=== PATIENT | male | born 1955 | race Caucasian/White ===

== ENCOUNTER 2020-11-18 09:58 | Outpatient (REF) | payer MEDICARE, SELFPAY ==
[2020-11-18 11:26] LABS: Basophils Absolute Auto 0.1 X10*3/uL (0.0-0.2); Basophils Percent Auto 0.6 % (0-2); Eosinophils Absolute Auto 0.3 X10*3/uL (0.0-0.4); Eosinophils Percent Auto 2.8 % (0-4); Hematocrit 43.2 % (42-52); Hemoglobin 13.7 g/dl (14.0-18.0); Imm Gran Abs Auto 0.04 X10*3/uL (0.00-0.03); Imm Gran Pct Auto 0.4 % (0.0-0.4); Lymphocytes Absolute Auto 2.7 X10*3/uL (1.2-4.9); Lymphocytes Percent Auto 27.2 % (20-40); MANUAL DIFF FLAG SCAN; Mean Corpuscular HGB Conc 31.7 g/dl (31.0-36.0); Mean Corpuscular Hemoglobin 27.8 pg (27.0-33.0); Mean Corpuscular Volume 87.6 fL (80-98); Monocytes Absolute Auto 0.6 X10*3/uL (0.1-1.2); Monocytes Percent Auto 6.3 % (2-11); Neutrophils Absolute Auto 6.1 X10*3/uL (2.0-8.3); Neutrophils Percent Auto 62.7 % (45-73); PLT CLUMP 1; Red Blood Count 4.93 X10*6/uL (4.60-5.80); Red Cell Distribution Width 14.5 % (11.0-16.0); SCAN SMEAR FLAG 1
[2020-11-18 11:56] LABS: Alanine Aminotransferase 30 U/L (0-40); Albumin Level 4.1 g/dL (3.5-5.0); Alkaline Phosphatase 87 U/L (39-117); Anion Gap 15 (12-20); Aspartate Amino Transferase 23 U/L (5-37); Bilirubin Total 0.5 mg/dL (0.0-1.0); Blood Urea Nitrogen 25 mg/dL (9-16); Calcium 9.4 mg/dL (8.4-10.2); Carbon Dioxide 24 mmol/L (22-29); Chloride 106 mmol/L (96-108); Cholesterol 156 mg/dL; Estimated Glomerular Filt Rate > 60; Glucose Random 104 mg/dL (60-115); HDL Cholesterol 36 mg/dL; LDL Cholesterol Calculated 101 mg/dl; Potassium 4.8 mmol/L (3.3-5.1); Sodium 140 mmol/L (135-145); Total Protein 7.3 g/dL (6.5-8.0); Triglycerides 96 mg/dL
[2020-11-18 12:02] LABS: Prostate Specific Antigen 1.17 ng/mL (<0.05-4.0); Thyroid Stimulating Hormone 1.79 uIU/mL (0.32-4.0)
[2020-11-18 12:15] LABS: Folate 18.4 ng/mL (> or = 4.0); Vitamin B12 367 pg/mL (200-900)
[2020-11-18 12:17] LABS: Platelet Count 207 X10*3/uL (160-400); White Blood Count 9.7 X10*3/uL (4.8-10.8)
[2020-11-18 12:18] LABS: SLIDE REVIEW VERIFIED
== END 2020-11-18 09:59 | disposition home or self-care (01) ==
LOC: HO.HMGCLDS 09:58
PROVIDERS: PCP Internal Medicine; Visit Provider Internal Medicine
DX: I10 Essential (primary) hypertension (principal); K21.9 Gastro-esophageal reflux disease without esophagitis; Z12.5 Encounter for screening for malignant neoplasm of prostate
CPT/HCPCS: 36415; 80053; 80061; 82607; 82746; 84153; 84443; 85025

== ENCOUNTER → 2021-01-29 14:17 | Outpatient (BNVA) | payer MEDICARE, SELFPAY | PROVIDERS: PCP Internal Medicine; Referring Provider Internal Medicine; Visit Provider Nurse Practitioner | DX: E66.01 Morbid (severe) obesity due to excess calories (principal); Z68.43 Body mass index [BMI] 50.0-59.9, adult; G47.33 Obstructive sleep apnea (adult) (pediatric); Z79.899 Other long term (current) drug therapy | CPT/HCPCS: 99202 ==

== ENCOUNTER 2021-03-02 09:55 | Day surgery (SDC) | payer MEDICARE, SELFPAY ==
--- NOTE | 2021-02-26 12:53 | HO.ANESPROP2 ---
HPI - Anesthesia Eval Consult details Narrative: 65yo M for Colonoscopy PMFSH Active Problems Active Problems: All Active Problems (Updated 02/24/21 @ 12:07 by Conchita Coronel) COVID-19 virus infection (Acute) Seborrheic dermatitis (Acute) Knee osteoarthritis (Acute) Morbid obesity with BMI of 50.0-59.9, adult (Acute) Obstructive sleep apnea (Acute) GERD (gastroesophageal reflux disease) (Acute) Hypertension (Acute) Past Medical History Medical History Allergic rhinitis Asthma Gastric ulcer, unspecified as acute or chronic, without hemorrhage or perforation GERD (gastroesophageal reflux disease) Hypertension Legionnaires' disease Lower extremity edema Lymphedema Obstructive sleep apnea Family History Family History Father No problems noted. Mother No problems noted. Surgical History Surgical History History of ankle surgery History of lipoma Hx of colonoscopy Social History Social History Alcohol intake: never Patient Tobacco Use Status: Never used Tobacco Meds Allergies Allergy/AdvReac Type Severity Reaction Status Date / Time No Known Allergies [NKDA] Allergy Mild NONE Verified 02/24/21 09:22 Home Medications Medication Instructions Recorded Confirmed Last Taken Type ascorbate calcium (vitamin C) 500 500 mg PO DAILY 06/23/20 02/24/21 Unknown History mg tablet multivitamin,[id number] 1 tab PO DAILY 06/23/20 02/24/21 Unknown History Exam Exam Date and Time: February 26, 2021 1253 Pertinent Lab Results Pertinent Lab Results: Laboratory Tests 11/18/20 11/18/20 10:05 10:05 WBC 9.7 Hgb 13.7 L Hct 43.2 Plt Count 207 Sodium 140 Potassium 4.8 Chloride 106 Carbon Dioxide 24 BUN 25 H Creatinine 0.90 Assessment and Plan Assessment Anesthesia Assessment: Chart Reviewed
[2021-03-02 06:02] VITALS: BMI 51.0
[2021-03-02 10:17] VITALS: BP 151/67; PULSE 75; RESP 18; TEMP 36.9; O2SAT 96
--- NOTE | 2021-03-02 10:26 | P.CONAN_ITS ---
[facility] Active Problems Active Problems: All Active Problems (Updated 02/24/21 @ 12:07 by Conchita villanueva) COVID-19 virus infection (Acute) Seborrheic dermatitis (Acute) Knee osteoarthritis (Acute) Morbid obesity with BMI of 50.0-59.9, adult (Acute) Obstructive sleep apnea (Acute) GERD (gastroesophageal reflux disease) (Acute) Hypertension (Acute) Past Medical History Medical History Allergic rhinitis Asthma Gastric ulcer, unspecified as acute or chronic, without hemorrhage or perforation GERD (gastroesophageal reflux disease) Hypertension Legionnaires' disease Lower extremity edema Lymphedema Obstructive sleep apnea Family History Family History Father No problems noted. Mother No problems noted. Surgical History Surgical History History of ankle surgery History of lipoma Hx of colonoscopy Social History Social History Alcohol intake: never Patient Tobacco Use Status: Never used Tobacco Are you DNR?: No Advance Directives: No Advance Directives Information Provided: No Advance Directives on File: No Recently lost weight without trying: No Meds Allergies Allergy/AdvReac Type Severity Reaction Status Date / Time No Known Allergies [NKDA] Allergy Mild NONE Verified 02/24/21 09:22 Active Medications: Current Medications Generic Name Dose Route Start Last Admin Trade Name Freq PRN Reason Stop Dose Admin Albuterol Sulfate 2.5 mg 03/02/21 09:56 Albuterol Sulfate (0.083%) 2.5 Mg/3 Ml Vial.Neb INHALE ONCE PRN Shortness of Breath/Wheezing Lactated Ringer's 1,000 mls @ 100 mls/hr 03/02/21 10:00 Lr IVCONT .Q10H [facility] Home Medications Medication Instructions Recorded Confirmed Last Taken Type ascorbate calcium (vitamin C) 500 500 mg PO DAILY 06/23/20 02/24/21 Unknown History mg tablet multivitamin,[id number]-[id number] 1 tab PO DAILY 06/23/20 02/24/21 Unknown History Exam Exam Date and Time: March 02, 2021 1026 Height,Weight and Vital Signs: Height 6 ft 1 in Weight 175.54 kg Airway Mallampati Class: IV TM Dist: >3cm Neck ROM: Full Heart: RRR Lungs: CTA
--- NOTE | 2021-03-02 10:35 | MHC.SHP ---
Pre-Procedural Eval Section B Chief Complaint: Screening Relevant Family History (Specify if Yes): No Relevant Social History: None Present Medications: see Short Stay Collaborative assessment Medical History: Significant History (Allergic rhinitis Asthma Gastric ulcer, unspecified as acute or chronic, without hemorrhage or perforation GERD (gastroesophageal reflux disease) Hypertension Legionnaires' disease Lower extremity edema Lymphedema Obstructive sleep apnea) History of Previous Operations: Relevant previous surgery/procedure and date(s) (History of ankle surgery History of lipoma Hx of colonoscopy) Allergies: Allergies Allergy/AdvReac Type Severity Reaction Status Date / Time No Known Allergies [NKDA] Allergy Mild NONE Verified 02/24/21 09:22 Review of Systems Sugical H&P ROS: Negative: Constitution, Cardiovascular, Respiratory, Neurological, Psychiatric, Hem-Onc, Allergic/Immunologic, Gastrointestinal, Genitourinary, Musculoskeletal, Integumentary, Endocrine and Eyes/Ears/Nose/Throat Exam Surgical H&P Exam: Normal: HEENT, Normal: Heart, Normal: Lungs, Normal: Extremities, Normal: Abdomen, Normal: Skin and Normal: Neurological Plan Diagnosis/Plan: Unchanged I have reviewed the history and physical and performed a pertinent physical examination on my patient. No changes have occurred unless specified.
[2021-03-02] MEDS: Lactated Ringers 1,000 ML 100 ML IVCONT (10:41)
--- NOTE | 2021-03-02 11:23 | P.OP_ITS ---
Operative Note Operative Note Date of Service: 03/02/21 Narrative: Operative Information Procedure Description: Colonoscopy COLONOSCOPY Instrument: Olympus variable stiffness adult scope 190L Colonoscopy Monitoring: Vital signs and clinical assessment, continuous EKG monitoring, Pulse oximetry, Carbon Dioxide monitoring and blood pressure monitoring were done throughout the procedure. Colon withdrawal time was 34 minutes. Procedure: The patient was placed in the left lateral decubitis position and pre-procedure medications were administered. After a digital rectal examination of the ano-rectum, the video colonoscope was inserted into the rectum and advanced through the colon to the cecum/TI. The colonoscope was slowly withdrawn in a retrograde panoramic fashion and the colon mucosa was carefully examined including a retroflexed view of the rectum. Findings and interventions are described below. Procedure Difficulty: moderate-pressure applied to reach cecum Findings: Terminal Ileum-not intubated due to looping and poor prep Cecum: 8-9 mm sessile polyp removed with forceps Ascending Colon: normal Transverse Colon - distal transverse colon close to splenic flexure 18-20 mm laterally spreading granular sessile polyp noted. This was liberally injected with ORISE and then resected using cold and hot snare polypectomy. APC applied to the edges and the defect partially closed with 4 clips. Pieces retrieved using a net. Descending Colon:normal Sigmoid Colon: severe diverticulosis with wide mouthed tics noted Rectum: Retroflexion with moderate sized internal hemorrhoids, grade II Anorectum - normal Colon preparation: [place] Bowel Preparation Scale Right colon; 1 Transverse colon: 2 Left colon; 1 (0 = Unprepared colon segment with mucosa not seen due to solid stool that cannot be cleared. 1 = Portion of mucosa of the colon segment seen, but other areas of the colon segment not well seen due to staining, residual stool and/or opaque liquid. 2 = Minor amount of residual staining, small fragments of stool and/or opaque liquid, but mucosa of colon segment seen well. 3 = Entire mucosa of colon segment seen well with no residual staining, small fragments of stool or opaque liquid) Impression and Post Procedure Diagnosis: polyps internal hemorrhoids diverticular disease Plan: High fiber diet leaflet Avoid straining at stool, epsom salts and sitz bath, anusol supps or cream as needed Repeat Colonoscopy in 6-12 months with 2 d prep if possible, also use distal attachment next time. Above findings were reviewed with the patient and relevant handouts were provided if indicated.
--- NOTE | 2021-03-02 11:23 | PM.OP ---
Brief Operative Note Date of Service: 03/02/21 Pre-op diagnosis: colon screening Post-op diagnosis: same Procedure: see op note Surgeon: Walter Kruse MD Anesthesia: MAC Was an Profile Grinder used for this Procedure?: No Estimated blood loss (mL): 0 Condition: stable Disposition: PACU
[2021-03-02 12:36] VITALS: BP 114/61; PULSE 70; RESP 16; TEMP 36.7; O2SAT 97
[2021-03-02 12:51] VITALS: BP 136/66; PULSE 66; RESP 16; TEMP 36.7; O2SAT 98
== END 2021-03-02 13:34 | disposition home or self-care (01) ==
PROVIDERS: PCP Internal Medicine; Visit Provider Internal Medicine Gastroenterology
PROC: 0DJD8ZZ Inspection of Lower Intestinal Tract, Via Natural or Artificial Opening Endoscopic (ICD-10-PCS; CPT 45378; principal; 2021-03-02 11:10)
DX: Z12.11 Encounter for screening for malignant neoplasm of colon (principal); D12.0 Benign neoplasm of cecum; D12.3 Benign neoplasm of transverse colon; K57.30 Diverticulosis of large intestine without perforation or abscess without bleeding; K64.1 Second degree hemorrhoids; K21.9 Gastro-esophageal reflux disease without esophagitis; I10 Essential (primary) hypertension; G47.33 Obstructive sleep apnea (adult) (pediatric); J45.909 Unspecified asthma, uncomplicated; I89.0 Lymphedema, not elsewhere classified; Z79.899 Other long term (current) drug therapy; Z99.89 Dependence on other enabling machines and devices; Z86.16 Personal history of COVID-19
CPT/HCPCS: 45385; 45380; 45381; 88305

== ENCOUNTER → 2021-03-30 11:04 | Outpatient (BNVA) | payer MEDICARE, SELFPAY | PROVIDERS: PCP Internal Medicine; Referring Provider Internal Medicine; Visit Provider Nurse Practitioner | DX: D12.6 Benign neoplasm of colon, unspecified (principal); K21.9 Gastro-esophageal reflux disease without esophagitis | CPT/HCPCS: 99212 ==

== ENCOUNTER 2021-06-03 08:25 | Outpatient (REF) | payer MEDICARE, SELFPAY ==
[2021-06-03 09:27] LABS: Alanine Aminotransferase 23 U/L (0-40); Albumin Level 3.9 g/dL (3.5-5.0); Alkaline Phosphatase 79 U/L (39-117); Anion Gap 14 (12-20); Aspartate Amino Transferase 18 U/L (5-37); Bilirubin Total 0.7 mg/dL (0.0-1.0); Blood Urea Nitrogen 27 mg/dL (9-16); Calcium 9.5 mg/dL (8.4-10.2); Carbon Dioxide 24 mmol/L (22-29); Chloride 108 mmol/L (96-108); Estimated Glomerular Filt Rate > 60; Glucose Random 111 mg/dL (60-115); Potassium 4.6 mmol/L (3.3-5.1); Sodium 141 mmol/L (135-145); Total Protein 6.7 g/dL (6.5-8.0)
[2021-06-03 09:50] LABS: Free T4 (Free Thyroxine) 1.14 ng/dL (0.71-1.85)
== END 2021-06-03 08:26 | disposition home or self-care (01) ==
LOC: HO.LAB 08:25
PROVIDERS: PCP Internal Medicine; Visit Provider Internal Medicine
DX: Z12.5 Encounter for screening for malignant neoplasm of prostate (principal); I10 Essential (primary) hypertension
CPT/HCPCS: 36415; 80053; 84153; 84439; 84443

== ENCOUNTER 2021-07-01 07:48 | Outpatient (REF) | payer MEDICARE, SELFPAY ==
--- NOTE | ~2021-07-01 | XR_ITS ---
EXAMINATION: X-RAY BILATERAL KNEES CLINICAL INFORMATION: Primary osteoarthritis COMPARISON: X-ray 11/19/2019 TECHNIQUE: Left knee 3 views. Right knee 2 views. FINDINGS: Left knee: Severe medial and patellofemoral compartment arthritis. Moderate to severe lateral compartment arthritis. Insertional enthesopathy in the patella. Probable small loose bodies. No significant joint effusion. No evidence of acute fracture or dislocation. Right knee: Severe medial and patellofemoral compartment arthritis.. Moderate lateral compartment arthritis. No fracture or dislocation. Triangular ossification in the suprapatellar region, unchanged from previous. No significant effusion. XR/XR knee LT 2V IMPRESSION: Advanced osteoarthritis bilateral knees, described above.
--- NOTE | ~2021-07-01 | XR_ITS ---
EXAMINATION: X-RAY BILATERAL KNEES CLINICAL INFORMATION: Primary osteoarthritis COMPARISON: X-ray 11/19/2019 TECHNIQUE: Left knee 3 views. Right knee 2 views. FINDINGS: Left knee: Severe medial and patellofemoral compartment arthritis. Moderate to severe lateral compartment arthritis. Insertional enthesopathy in the patella. Probable small loose bodies. No significant joint effusion. No evidence of acute fracture or dislocation. Right knee: Severe medial and patellofemoral compartment arthritis.. Moderate lateral compartment arthritis. No fracture or dislocation. Triangular ossification in the suprapatellar region, unchanged from previous. No significant effusion. XR/XR knee RT 2V IMPRESSION: Advanced osteoarthritis bilateral knees, described above.
== END 2021-07-01 07:49 | disposition home or self-care (01) ==
LOC: HO.XRAY 07:48
PROVIDERS: PCP Internal Medicine; Visit Provider Internal Medicine
DX: M17.0 Bilateral primary osteoarthritis of knee (principal)
CPT/HCPCS: 73560

== ENCOUNTER 2021-07-06 08:36 | Outpatient (REF) | payer MEDICARE, SELFPAY ==
--- NOTE | ~2021-07-06 | XR_ITS ---
EXAMINATION: XR KNEE AP STANDING CLINICAL INFORMATION: Knee pain. COMPARISON: 07/01/2021 and studies dating back to 12/29/2007. TECHNIQUE: AP bilateral standing view of the knees was obtained. FINDINGS: AP standing view of the left knee demonstrates severe narrowing of the medial joint space compartment with loss of joint space and marginal sclerosis and spurring. Calcified density is seen overlying superior and lateral to the patella. Numerous other small calcifications are present which may represent loose bodies. No significant narrowing of the lateral joint space compartment is seen. Single standing view of the right knee demonstrates severe narrowing of the medial joint space compartment with some marginal spurring. A few calcific/bony densities are seen about the medial aspect of the medial joint space compartment which may represent loose bodies. Small bony density seen overlying the tibial spines which may also represent loose body. Patellar spurring is present. XR/XR knee standing BI IMPRESSION: No change in appearance on AP standing views of the knees compared to most recent study of 07/01/2021. Probable bilateral loose bodies. Loss of the left medial joint space compartment with marginal spurring and sclerosis. Severe narrowing of the medial joint space compartment of the right knee.
== END 2021-07-06 08:37 | disposition home or self-care (01) ==
LOC: HO.HOSX 08:36
PROVIDERS: Visit Provider Orthopaedic Surgery
DX: M17.0 Bilateral primary osteoarthritis of knee (principal); E66.01 Morbid (severe) obesity due to excess calories; Z68.43 Body mass index [BMI] 50.0-59.9, adult; Z71.3 Dietary counseling and surveillance; R73.01 Impaired fasting glucose
CPT/HCPCS: 73565; 99202

== ENCOUNTER → 2021-07-13 08:21 | Outpatient (BNVA) | payer MEDICARE, SELFPAY | PROVIDERS: PCP Internal Medicine; Visit Provider Orthopaedic Surgery | DX: M17.0 Bilateral primary osteoarthritis of knee (principal); E66.01 Morbid (severe) obesity due to excess calories; R73.01 Impaired fasting glucose; Z68.43 Body mass index [BMI] 50.0-59.9, adult | CPT/HCPCS: 20610; 99212; J7318 ==

== ENCOUNTER → 2021-09-14 09:09 | Outpatient (BNVA) | payer MEDICARE, SELFPAY | PROVIDERS: PCP Internal Medicine; Visit Provider Orthopaedic Surgery | DX: R73.01 Impaired fasting glucose (principal); M17.0 Bilateral primary osteoarthritis of knee; E66.01 Morbid (severe) obesity due to excess calories; Z68.43 Body mass index [BMI] 50.0-59.9, adult | CPT/HCPCS: 99212 ==

== ENCOUNTER → 2021-10-20 08:25 | Outpatient (BNVA) | payer MEDICARE, SELFPAY | PROVIDERS: PCP Internal Medicine; Referring Provider Internal Medicine; Visit Provider Nurse Practitioner Family | DX: G47.33 Obstructive sleep apnea (adult) (pediatric) (principal); E66.01 Morbid (severe) obesity due to excess calories; Z68.43 Body mass index [BMI] 50.0-59.9, adult; K21.9 Gastro-esophageal reflux disease without esophagitis | CPT/HCPCS: 99202 ==

== ENCOUNTER → 2021-11-16 09:48 | Outpatient (REF) | payer MEDICARE, SELFPAY | LOC: HO.SL 09:48 | PROVIDERS: PCP Internal Medicine; Visit Provider Nurse Practitioner Family | DX: Z13.89 Encounter for screening for other disorder (principal) ==

== ENCOUNTER → 2021-11-26 09:11 | Outpatient (REF) | payer MEDICARE, SELFPAY | LOC: HO.SL 09:11 | PROVIDERS: PCP Internal Medicine; Visit Provider Nurse Practitioner Family | DX: G47.33 Obstructive sleep apnea (adult) (pediatric) (principal); R06.83 Snoring; R40.0 Somnolence | CPT/HCPCS: 95806 ==

== ENCOUNTER → 2021-12-15 09:11 | Outpatient (BNVA) | payer MEDICARE, SELFPAY | PROVIDERS: PCP Internal Medicine; Visit Provider Nurse Practitioner Family | DX: G47.33 Obstructive sleep apnea (adult) (pediatric) (principal) | CPT/HCPCS: 99212 ==

== ENCOUNTER 2021-12-25 08:43 | Outpatient (REF) | payer MEDICARE, SELFPAY ==
[2021-12-25 09:20] LABS: MANUAL DIFF FLAG NO
[2021-12-25 09:45] LABS: Basophils Absolute Auto 0.1 X10*3/uL (0.0-0.2); Basophils Percent Auto 0.7 % (0-2); Eosinophils Absolute Auto 0.3 X10*3/uL (0.0-0.4); Eosinophils Percent Auto 3.1 % (0-4); Hematocrit 42.6 % (42.0-52.0); Hemoglobin 13.5 g/dl (14.0-18.0); Imm Gran Abs Auto 0.06 X10*3/uL (0.00-0.03); Imm Gran Pct Auto 0.7 % (0.0-0.4); Lymphocytes Absolute Auto 2.7 X10*3/uL (1.2-4.9); Lymphocytes Percent Auto 30.5 % (20-40); Mean Corpuscular HGB Conc 31.7 g/dl (31.0-36.0); Mean Corpuscular Hemoglobin 28.2 pg (27.0-33.0); Mean Corpuscular Volume 88.9 fL (80.0-98.0); Mean Platelet Volume 10.8 fL (9.4-12.4); Monocytes Absolute Auto 0.5 X10*3/uL (0.1-1.2); Monocytes Percent Auto 5.8 % (2-11); Neutrophils Absolute Auto 5.2 x10*3/uL (2.0-8.3); Neutrophils Percent Auto 59.2 % (45-73); Platelet Count 277 X10*3/uL (160-400); Red Blood Count 4.79 X10*6/uL (4.60-5.80); Red Cell Distribution Width 13.9 % (11.0-16.0); White Blood Count 8.8 X10*3/uL (4.8-10.8)
[2021-12-25 10:04] LABS: Anion Gap 12 (12-20); Bilirubin Total 1.2 mg/dL (0.0-1.0); Blood Urea Nitrogen 26 mg/dL (9-16); Calcium 9.2 mg/dL (8.4-10.2); Carbon Dioxide 26 mmol/L (22-29); Chloride 106 mmol/L (96-108); Estimated Glomerular Filt Rate > 60; Glucose Random 106 mg/dL (60-115); Potassium 4.6 mmol/L (3.3-5.1); Sodium 139 mmol/L (135-145)
[2021-12-25 10:05] LABS: Alanine Aminotransferase 25 U/L (0-40); Albumin Level 3.7 g/dL (3.5-5.0); Alkaline Phosphatase 81 U/L (39-117); Aspartate Amino Transferase 20 U/L (5-37); Cholesterol 154 mg/dL; HDL Cholesterol 31 mg/dL; LDL Cholesterol Calculated 107 mg/dl; Total Protein 6.7 g/dL (6.5-8.0); Triglycerides 80 mg/dL
[2021-12-25 10:07] LABS: Estimated Average Glucose 126 mg/dL
[2021-12-25 10:24] LABS: Erythrocyte Sedimentation Rate 23 MM/HR (0-15)
[2021-12-25 10:28] LABS: Free T4 (Free Thyroxine) 0.98 ng/dL (0.71-1.85); Prostate Specific Antigen Scr 0.94 ng/mL (<0.05-4.0); Thyroid Stimulating Hormone 1.47 uIU/mL (0.32-4.0)
[2021-12-25 10:56] LABS: Folate 18.9 ng/mL (> or = 4.0); Vitamin B12 332 pg/mL (200-900)
== END 2021-12-25 08:44 | disposition home or self-care (01) ==
LOC: HO.LAB 08:43
PROVIDERS: PCP Internal Medicine; Visit Provider Internal Medicine
DX: Z12.5 Encounter for screening for malignant neoplasm of prostate (principal); I10 Essential (primary) hypertension; E78.00 Pure hypercholesterolemia, unspecified
CPT/HCPCS: 36415; 80053; 80061; 82607; 82746; 83036; 84153; 84439; 84443; 85025; 85652

== ENCOUNTER 2022-07-23 08:24 | Outpatient (REF) | payer MEDICARE, SELFPAY ==
--- NOTE | ~2022-07-23 | FL_ITS ---
EXAMINATION: FL BARIUM SWALLOW CLINICAL INFORMATION: Dysphagia COMPARISON: None TECHNIQUE: Barium swallow examination is performed using fluoroscopic evaluation in addition to multiple fluoroscopic spot views. The patient is imaged both upright and prone and using both thick and thin sulfate along with effervescent granules. Barium tablet was also administered Fluoroscopy time: 0.9 minutes DAP: 10.5 Gycm2 Images: 46 FINDINGS: The swallowing mechanism is normal. No aspiration or penetration. Esophageal motility is normal. Small sliding-type hiatal hernia. Mild gastroesophageal reflux.. No mass or stricture is seen. Barium tablet passed freely into the esophagus. FL/FL barium swallow IMPRESSION: Small sliding-type hiatal hernia and mild gastroesophageal reflux.
== END 2022-07-23 08:25 | disposition home or self-care (01) ==
LOC: HO.XRAY 08:24
PROVIDERS: PCP Internal Medicine; Visit Provider Internal Medicine
DX: R13.10 Dysphagia, unspecified (principal)
CPT/HCPCS: 74220

== ENCOUNTER → 2022-08-27 08:32 | Outpatient (BNVA) | payer MEDICARE, SELFPAY | PROVIDERS: PCP Internal Medicine; Visit Provider Nurse Practitioner Family | DX: Z12.11 Encounter for screening for malignant neoplasm of colon (principal); D12.6 Benign neoplasm of colon, unspecified; G47.33 Obstructive sleep apnea (adult) (pediatric) | CPT/HCPCS: 99212 ==

== ENCOUNTER 2022-12-30 07:07 | Outpatient (REF) | payer MEDICARE, SELFPAY ==
[2022-12-30 07:17] LABS: MANUAL DIFF FLAG NO
[2022-12-30 07:40] LABS: Basophils Absolute Auto 0.1 X10*3/uL (0.0-0.2); Basophils Percent Auto 0.6 % (0-2); Eosinophils Absolute Auto 0.3 X10*3/uL (0.0-0.4); Eosinophils Percent Auto 2.5 % (0-4); Hematocrit 43.8 % (42.0-52.0); Hemoglobin 13.9 g/dl (14.0-18.0); Imm Gran Abs Auto 0.03 X10*3/uL (0.00-0.03); Imm Gran Pct Auto 0.3 % (0.0-0.4); Lymphocytes Absolute Auto 3.1 X10*3/uL (1.2-4.9); Lymphocytes Percent Auto 30.4 % (20-40); Mean Corpuscular HGB Conc 31.7 g/dl (31.0-36.0); Mean Corpuscular Hemoglobin 28.3 pg (27.0-33.0); Mean Platelet Volume 10.8 fL (9.4-12.4); Monocytes Absolute Auto 0.6 X10*3/uL (0.1-1.2); Neutrophils Absolute Auto 6.1 x10*3/uL (2.0-8.3); Neutrophils Percent Auto 60.2 % (45-73); Platelet Count 310 X10*3/uL (160-400); Red Blood Count 4.92 X10*6/uL (4.60-5.80); White Blood Count 10.2 X10*3/uL (4.8-10.8)
[2022-12-30 07:53] LABS: Estimated Average Glucose 126 mg/dL
[2022-12-30 08:20] LABS: Alanine Aminotransferase 23 U/L (0-40); Albumin Level 3.8 g/dL (3.5-5.0); Alkaline Phosphatase 83 U/L (39-117); Anion Gap 12 (12-20); Aspartate Amino Transferase 17 U/L (5-37); Bilirubin Total 0.9 mg/dL (0.0-1.0); Blood Urea Nitrogen 26 mg/dL (9-16); Calcium 8.8 mg/dL (8.4-10.2); Carbon Dioxide 26 mmol/L (22-29); Chloride 109 mmol/L (96-108); Cholesterol 154 mg/dL; Estimated Glomerular Filt Rate > 60; Glucose Random 112 mg/dL (60-115); HDL Cholesterol 33 mg/dL; LDL Cholesterol Calculated 107 mg/dl; Potassium 4.3 mmol/L (3.3-5.1); Sodium 143 mmol/L (135-145); Total Protein 6.5 g/dL (6.5-8.0); Triglycerides 73 mg/dL
[2022-12-30 08:39] LABS: Folate 14.3 ng/mL (> or = 4.0); Free T4 (Free Thyroxine) 0.96 ng/dL (0.71-1.85); Prostate Specific Antigen Scr 1.01 ng/mL (<0.05-4.0); Thyroid Stimulating Hormone 2.59 uIU/mL (0.32-4.0); Vitamin B12 495 pg/mL (200-900)
== END 2022-12-30 07:08 | disposition home or self-care (01) ==
LOC: HO.LAB 07:07
PROVIDERS: PCP Internal Medicine; Visit Provider Internal Medicine
DX: Z12.5 Encounter for screening for malignant neoplasm of prostate (principal); R73.01 Impaired fasting glucose; E78.00 Pure hypercholesterolemia, unspecified; K21.9 Gastro-esophageal reflux disease without esophagitis
CPT/HCPCS: 36415; 80053; 80061; 82607; 82746; 83036; 84153; 84439; 84443; 85025

== ENCOUNTER 2023-02-20 10:40 | Emergency (ER) | payer MEDICARE, SELFPAY ==
--- NOTE | ~2023-02-20 | US_ITS ---
EXAMINATION: US VENOUS ULTRASOUND WITH DOPPLER LOWER EXTREMITY, LEFT CLINICAL INFORMATION: Pain COMPARISON: None available. TECHNIQUE: Ultrasound of the deep veins is performed from the hip to the calf with compression sonography and color and pulse Doppler assessment. Spectral analysis with color-flow imaging is performed. FINDINGS: There is normal venous compression and respiratory variation and augmented flow. The visualized common femoral vein, superficial femoral vein, profunda femoral vein, and popliteal vein shows no evidence of deep venous thrombosis. Calf veins not well visualized. There is no significant popliteal fossa cyst. US/US venous duplex LE LT IMPRESSION: No DVT demonstrated in the left lower extremity. Calf veins not well visualized.
[2023-02-20 10:58] VITALS: BP 182/74; PULSE 81; RESP 18; TEMP 36.7; O2SAT 96; BMI 48.8
[2023-02-20 11:21] LABS: MANUAL DIFF FLAG NO
[2023-02-20 11:42] LABS: Basophils Absolute Auto 0.1 X10*3/uL (0.0-0.2); Basophils Percent Auto 0.8 % (0-2); Eosinophils Absolute Auto 0.4 X10*3/uL (0.0-0.4); Eosinophils Percent Auto 4.1 % (0-4); Hematocrit 41.7 % (42.0-52.0); Hemoglobin 13.1 g/dl (14.0-18.0); Imm Gran Abs Auto 0.05 X10*3/uL (0.00-0.03); Imm Gran Pct Auto 0.6 % (0.0-0.4); Lymphocytes Absolute Auto 2.7 X10*3/uL (1.2-4.9); Lymphocytes Percent Auto 30.3 % (20-40); Mean Corpuscular HGB Conc 31.4 g/dl (31.0-36.0); Mean Corpuscular Hemoglobin 28.2 pg (27.0-33.0); Mean Corpuscular Volume 89.7 fL (80.0-98.0); Mean Platelet Volume 10.7 fL (9.4-12.4); Monocytes Absolute Auto 0.5 X10*3/uL (0.1-1.2); Monocytes Percent Auto 5.8 % (2-11); Neutrophils Absolute Auto 5.2 x10*3/uL (2.0-8.3); Neutrophils Percent Auto 58.4 % (45-73); Platelet Count 254 X10*3/uL (160-400); Red Blood Count 4.65 X10*6/uL (4.60-5.80); Red Cell Distribution Width 14.1 % (11.0-16.0); White Blood Count 8.9 X10*3/uL (4.8-10.8)
[2023-02-20 11:44] LABS: Alanine Aminotransferase 18 U/L (0-40); Albumin Level 3.5 g/dL (3.5-5.0); Alkaline Phosphatase 73 U/L (39-117); Anion Gap 11 (12-20); Aspartate Amino Transferase 15 U/L (5-37); Bilirubin Total 0.5 mg/dL (0.0-1.0); Blood Urea Nitrogen 30 mg/dL (9-16); Calcium 8.6 mg/dL (8.4-10.2); Carbon Dioxide 24 mmol/L (22-29); Chloride 109 mmol/L (96-108); Estimated Glomerular Filt Rate > 60; Glucose Random 142 mg/dL (60-115); Potassium 4.4 mmol/L (3.3-5.1); Sodium 140 mmol/L (135-145); Total Protein 6.3 g/dL (6.5-8.0)
[2023-02-20 11:46] LABS: B Type Natriuretic Peptide 27 pg/mL (<100)
[2023-02-20 11:48] VITALS: BP 163/67; PULSE 71; RESP 18; TEMP 37.1; O2SAT 97
--- NOTE | 2023-02-20 12:24 | ED.EXTPRO ---
HPI - Extremity Problem General Chief complaint: Extremity Problem Stated complaint: l leg leaking fluid Time Seen by Provider: 02/20/23 11:46 Source: patient Mode of arrival: ambulatory Limitations: no limitations History of Present Illness HPI Narrative: Patient is 67 year old male with history of morbid obesity, peripheral vascular disease, impaired fasting glucose, lymphedema, IRASEMA, hypertension presenting with 3 weeks of poor wond healing to the anterior left lower extremity with clear drainage. He states that after hitting his lower leg with a car door the wound developed and has progressively worsened. He reports pain around the area and is unsure of his tetanus vaccine status. He denies any other symptoms at this time including fevers, chills, chest pain, palpitations, shortness of breath, abdominal pain, nausea, vomiting, headache and dizziness. Related Data Home Medications Medication Instructions Recorded Confirmed ascorbate calcium (vitamin C) 500 500 mg PO DAILY 06/23/20 02/18/23 mg tablet multivitamin,[id number] 1 tab PO DAILY 06/23/20 02/18/23 (Complete Multivitamin tablet) Previous Rx's Medication Instructions Recorded tramadol 50 mg tablet 50 mg PO DAILY #90 tabs 07/27/21 blood pressure monitor (Blood #1 ea 07/02/22 Pressure Kit) josé manuel.stocking,knee,reg,xlrg #12 ea 07/02/22 hydrochlorothiazide 25 mg tablet 25 mg PO QAM 90 days #90 tabs 07/02/22 lisinopril 40 mg tablet 40 mg PO DAILY #90 tabs 07/02/22 bisacodyl 5 mg tablet,delayed 10 mg PO BEDTIME #14 tabs 08/27/22 release (Dulcolax (bisacodyl)) polyethylene glycol 3350 17 238 g PO ONCE #238 grams 08/27/22 gram/dose oral powder (Miralax) fluticasone propionate 50 2 spray intranasal DAILY #16 grams 01/03/23 mcg/actuation nasal spray,suspension (Flonase Allergy Relief) meloxicam 15 mg tablet 15 mg PO DAILY #30 tabs 01/03/23 metoprolol succinate 25 mg 25 mg PO DAILY #30 tabs 01/03/23 tablet,extended release 24 hr pantoprazole 40 mg tablet,delayed 40 mg PO DAILY #90 tabs 01/17/23 release (Protonix) cephalexin 500 mg tablet 500 mg PO Q6H 10 days #40 tabs 02/20/23 doxycycline hyclate 100 mg capsule 100 mg PO BID 10 days #20 caps 02/20/23 Allergies Allergy/AdvReac Type Severity Reaction Status Date / Time No Known Allergies [NKDA] Allergy Mild NONE Verified 01/03/23 09:25 Review of Systems Review of Systems: Constitutional : No Weight loss, No Fever, No Chills, No Fatigue, No Malaise Cardiovascular : No Chest Pain, No SOB, No Dyspnea on Exertion, No Orthopnea, No Edema, No Palpitations Respiratory : No Cough, No Sputum, No Wheezing Gastrointestinal : No Nausea, No Vomiting, No Diarrhea, No Constipation, No abdominal Pain, No Hematochezia, No Melena Genitourinary : No Dysuria, No Urinary Frequency, No Hematuria, Musculoskeletal : No joint pain, No Myalgias, No Joint Swelling Skin : + wound/ulceration on anterior left lower leg with clear drainage, No rash Neuro : No Weakness, No Numbness, No Dizziness, No Headache Psych : No Anxiety/Panic, No Depression All other systems reviewed and are negative Yes all other systems are reviewed and are negative FOR[facility]LY [facility] Past Medical History Attestation statement: The following information was validated with the patient. Source: old records reviewed and nursing notes reviewed Medical History Allergic rhinitis Asthma COVID-19 virus infection Gastric ulcer, unspecified as acute or chronic, without hemorrhage or perforation GERD (gastroesophageal reflux disease) Hypertension Legionnaires' disease Lower extremity edema Lymphedema Obstructive sleep apnea Seborrheic dermatitis Snores Weight gain Surgical History H/O esophagogastroduodenoscopy History of ankle surgery History of lipoma Hx of colonoscopy Family History Family History Father No problems noted. Mother No problems noted. Social History Social History Housing: House Alcohol intake: never Patient Tobacco Use Status: Never used Tobacco Smoked in Last 30 Days: No e-Cigarette/Vaping Use: Never Used Second Hand Smoke Exposure: No Use of substances other than those prescribed or required for medical reasons: No Advance Directives: No Current occupational status: retired Cognitive needs: No Hearing needs: No Vision needs: Yes Physical Exam Vital Signs: Vital Signs: Last Vital Signs Temp 98.0 F 02/20/23 13:25 Pulse 62 02/20/23 13:25 Resp 16 02/20/23 13:25 BP 134/63 02/20/23 13:25 Pulse Ox 100 02/20/23 13:25 O2 Del Method Room Air 02/20/23 13:25 BMI result Body Mass Index 48.8 vital signs stable Appearance: Alert.? Oriented X3.? No acute distress.? Head: Normocephalic, atraumatic, no step-offs or deformities Eyes: Pupils equal, round and reactive to light.? CVS: Normal heart rate and rhythm.? Pulses normal.? Respiratory: No respiratory distress.? Breath sounds normal.? Abdomen: Soft and nontender.? Skin: Skin warm and dry.?. Normal skin turgor.? Extremities: + 3+ non-pitting lower extremity edema bilaterally.+ erythema and warmth surrounding wound ( 2 cm X 2 cm ulcer) site of left lower extremity. No calf ttp. 5/5 strength to bilateral upper and lower extremities 2+ dorsalis pedis, into tibialis and posterior tibialis pulses equal bilateral. Neuro: Oriented X 3.? No motor deficit.? No sensory deficit. CN 2-12 intact Course Reevaluation(s) Reevaluation #1: CBC appears to be at patients baseline. Chemistry with slightly elevated BUN likely secondary to poor p.o. intake/dehydration will encourage p.o. fluids. BNP within normal limits unlikely CHF.. Pending LLE ultrasound. Patient has received updated tetanus vaccine. Time: 13:14 Reevaluation #2: Patient's DVT study negative. Patient to be discharged home with doxycycline and Keflex for nonhealing wound with cellulitis. Advised him to follow-up with PCP for evaluation and for possible referral to wound care. Vital signs stable. Educated patient on diagnosis and treatment plan, answered all question, patient verbalizes understanding. At this time patient will be discharged home, advised to return with new or worsening symptoms. Educated on worrisome signs and symptoms and when to return. At this time I feel comfortable discharge home. Time: 14:03 Medications Administered Discontinued Medications Generic Name Dose Route Start Last Admin Trade Name Freq PRN Reason Stop Dose Admin Diphtheria/Tetanus/Acell Pertussis 0.5 ml 02/20/23 12:23 02/20/23 13:21 Diphth,Pertus(Acell),Tet Adult 0.5 Ml Syringe IM 02/20/23 12:24 0.5 ml .ONCE ONE Administration Medical Decision Making Medical Decision Making [facility] Narrative: 1231 Patient is a 67 year old male presenting with 3 weeks of a ulceration to the anterior aspect of left lower extremity with clear drainage present for 3 weeks. Physical exam significant for 3+ non-pitting lower extremity edema bilaterally.+ erythema and warmth surrounding wound ( 2 cm X 2 cm ulcer) site of left lower extremity. No calf ttp. 5/5 strength to bilateral upper and lower extremities 2+ dorsalis pedis, into tibialis and posterior tibialis pulses equal bilateral. Differential diagnosis includes likely traumatic ulcer, venous stasis ulcer, arterial ulcer with associated cellulitis. Less likely thrombophlebitis, DVT, arterial occlusion, diabetic ulcer. No evidence of acute threat to limb. Patient without chest pain and shortness of breath unlikely CHF for PE. I do not suspect osteomyelitis Plan labs, imaging Differential Diagnosis Differential Diagnoses: The differential diagnosis associated with the presentation includes Differential diagnosis includes likely traumatic ulcer, venous stasis ulcer, arterial ulcer with associated cellulitis. Less likely thrombophlebitis, DVT, arterial occlusion, diabetic ulcer. No evidence of acute threat to limb. Patient without chest pain and shortness of breath unlikely CHF for PE. I do not suspect osteomyelitis Admission/Observation Consideration of admission/observation: Escalation of care including admission/observation considered unlikely Lab Data [facility] Lab Attestation statement: I reviewed the patient's lab results. 02/20/23 11:17 02/20/23 11:17 Labs: Lab Results 02/20/23 02/20/23 02/20/23 Range/Units 11:17 11:17 11:17 WBC 8.9 (4.8-10.8) X10*3/uL RBC 4.65 (4.60-5.80) X10*6/uL Hgb 13.1 L (14.0-18.0) g/dl Hct 41.7 L (42.0-52.0) % MCV 89.7 (80.0-98.0) fL MCH 28.2 (27.0-33.0) pg MCHC 31.4 (31.0-36.0) g/dl RDW 14.1 (11.0-16.0) % Plt Count 254 (160-400) X10*3/uL MPV 10.7 (9.4-12.4) fL Immature Gran % (Auto) 0.6 H (0.0-0.4) % Neut % (Auto) 58.4 (45-73) % Lymph % (Auto) 30.3 (20-40) % Desha % (Auto) 5.8 (2-11) % Eos % (Auto) 4.1 H (0-4) % Baso % (Auto) 0.8 (0-2) % Lymph # (Auto) 2.7 (1.2-4.9) X10*3/uL Desha # (Auto) 0.5 (0.1-1.2) X10*3/uL Eos # (Auto) 0.4 (0.0-0.4) X10*3/uL Baso # (Auto) 0.1 (0.0-0.2) X10*3/uL Abs Immat Gran (auto) 0.05 H (0.00-0.03) X10*3/uL Absolute Neuts (auto) 5.2 (2.0-8.3) x10*3/uL Absolute Nucleated RBC 0.000 (0.0-0.012) X10*3/uL Nucleated RBC % (auto) 0.0 (0.0-0.2) /100WBC Sodium 140 (135-145) mmol/L Potassium 4.4 (3.3-5.1) mmol/L Chloride 109 H (96-108) mmol/L Carbon Dioxide 24 (22-29) mmol/L Anion Gap 11 L (12-20) BUN 30 H (9-16) mg/dL Creatinine 0.92 (0.5-1.4) mg/dL Estim Creat Clear Calc 125.0 Estimated GFR > 60 Random Glucose 142 H (60-115) mg/dL Calcium 8.6 (8.4-10.2) mg/dL Total Bilirubin 0.5 (0.0-1.0) mg/dL AST 15 (5-37) U/L ALT 18 (0-40) U/L Alkaline Phosphatase 73 (39-117) U/L B-Natriuretic Peptide 27 (<100) pg/mL Total Protein 6.3 L (6.5-8.0) g/dL Albumin 3.5 (3.5-5.0) g/dL Independent Interpretation I performed an independent interpretation of an: Ultrasound Radiology Impression Discussion of test interpretation with radiology: I have reviewed the radiologist's reading. External Record Review External record reviewed: Inpatient record, Office record, Outpatient record, Prior outpatient labs, Prior outpatient radiology, Primary care record and Outside ED record Core Measures AMI core measures followed: Yes Measure exclusions: not indicated Critical Care Time Critical Care Time Critical Care Time: No Discharge Plan Discharge Clinical Impression: Delayed healing of traumatic wound, Cellulitis Patient Disposition: Home, Self-Care Instructions: Cellulitis (ED) Additional Instructions: Take your medications as prescribed. If you were prescribed antibiotics today, it is important that you take your medication to their entirety, do not skip any doses, do not finish them early. Follow-up with your primary care provider this week. You may require a referral to wound care Return to the emergency department with new or worsening symptoms. Such as fevers, chills, chest pain, shortness of breath, nausea, vomiting, dizziness, headache, vision changes, lethargy In case of emergency call 911 US/US venous duplex LE LT IMPRESSION: No DVT demonstrated in the left lower extremity. Calf veins not well visualized. If you experience calf pain or tenderness or worsening symptoms please return for repeat ultrasound of left lower extremity. Prescriptions: New cephalexin 500 mg tablet 500 mg PO Q6H 10 Days Qty: 40 0RF doxycycline hyclate 100 mg capsule 100 mg PO BID 10 Days Qty: 20 0RF No Action tramadol 50 mg tablet 50 mg PO DAILY Qty: 90 2RF pantoprazole [Protonix] 40 mg tablet,delayed release (DR/EC) 40 mg PO DAILY Qty: 90 2RF ascorbate calcium (vitamin C) 500 mg tablet 500 mg PO DAILY Complete Multivitamin Tablet 1 tab PO DAILY hydrochlorothiazide 25 mg tablet 25 mg PO QAM 90 Days Qty: 90 2RF lisinopril 40 mg tablet 40 mg PO DAILY Qty: 90 2RF (DME) blood pressure monitor [Blood Pressure Kit] Kit See Rx Instructions .ROUTE .MEDSUPPLY Qty: 1 0RF Rx Instructions: As directed (DME) josé manuel.stocking,knee,reg,xlrg Misc See Rx Instructions .Route Qty: 12 0RF Rx Instructions: As directed 20-30 mm HG metoprolol succinate 25 mg tablet extended release 24 hr 25 mg PO DAILY Qty: 30 4RF fluticasone propionate [Flonase Allergy Relief] 50 mcg/actuation spray,suspension 2 spray intranasal DAILY Qty: 16 2RF Rx Instructions: administer into each nostril meloxicam 15 mg tablet 15 mg PO DAILY Qty: 30 0RF bisacodyl [Dulcolax (bisacodyl)] 5 mg tablet,delayed release (DR/EC) 10 mg PO BEDTIME Qty: 14 0RF Rx Instructions: Start taking 2 tablet every night 7 days before the procedure and 1 day before procedure take 2 tablets at noon time followed by MiraLax prep polyethylene glycol 3350 [Miralax] 17 gram/dose powder 238 g PO ONCE Qty: 238 0RF Rx Instructions: As directed by gastroenterology department at Referrals: Po,Delaney Concepcion MD [Primary Care Provider] - 2 days
[2023-02-20] MEDS: Diphth,Pertus(ACell),Tet Adult 0.5 ML SYRINGE IM (13:21)
[2023-02-20 13:25] VITALS: BP 134/63; PULSE 62; RESP 16; TEMP 36.7; O2SAT 100
== END 2023-02-20 14:22 | disposition home or self-care (01) ==
PROVIDERS: Physician Assistant; Emergency Provider Student in an Organized Health Care Education/Training Program; PCP Internal Medicine
DX: S80.812A Abrasion, left lower leg, initial encounter (principal); L03.116 Cellulitis of left lower limb; R06.02 Shortness of breath; R60.0 Localized edema; X58.XXXA Exposure to other specified factors, initial encounter; Y93.9 Activity, unspecified; Y92.9 Unspecified place or not applicable; Y99.9 Unspecified external cause status; Z79.899 Other long term (current) drug therapy; Z23 Encounter for immunization
CPT/HCPCS: 36415; 80053; 83880; 85025; 90471; 90715; 93971; 99284

== ENCOUNTER 2023-03-11 07:59 | Outpatient (RCR) | payer MEDICARE, SELFPAY | END 2023-05-06 10:35 | disposition home or self-care (01) | LOC: HO.WCC 07:59 | PROVIDERS: PCP Internal Medicine; Visit Provider Physician Assistant | DX: L97.822 Non-pressure chronic ulcer of other part of left lower leg with fat layer exposed (principal); I89.0 Lymphedema, not elsewhere classified; I87.2 Venous insufficiency (chronic) (peripheral); I10 Essential (primary) hypertension; I73.9 Peripheral vascular disease, unspecified | CPT/HCPCS: 11042; 97597; 99212 ==

== ENCOUNTER 2023-05-02 10:31 | Outpatient (REF) | payer MEDICARE, SELFPAY ==
--- NOTE | ~2023-05-02 | US_ITS ---
EXAMINATION: US LOWER EXTREMITY VENOUS (REFLUX EXAM), BILATERAL CLINICAL INDICATION: Chronic venous insufficiency with lower extremity varicose veins and pain COMPARISON: None. TECHNIQUE: Color flow triplex imaging and compression Doppler was performed to evaluate both the deep and the superficial systems bilaterally. To evaluate the superficial system, the examination was performed in the upright position. Color-flow Doppler ultrasound and compression ultrasound were utilized. In addition, maneuvers were utilized to demonstrate reflux. FINDINGS: 1. DEEP VENOUS ULTRASOUND OF THE RIGHT LOWER EXTREMITY: Common Femoral Vein: Compressible, normal respiratory variation and augmented flow. Femoral Vein: Compressible, normal color flow and augmentation. Popliteal Vein: Compressible, normal augmentation. Deep Reflux: There is no evidence of reflux in the deep system in either the common femoral vein or the popliteal vein. There is no evidence of a Espan[place]'s cyst. 2. SUPERFICIAL ULTRASOUND WITH DOPPLER OF RIGHT LOWER EXTREMITY: GREAT SAPHENOUS VEIN: Saphenofemoral Junction: 1.2 cm; Reflux: 0 ms Proximal Thigh: 0.9 cm; Reflux: 0 ms Mid Thigh: 0.8 cm; Reflux: 1144 ms Above Knee: 0.7 cm; Reflux: 2472 ms At Knee: 0.7 cm; Reflux: 676 ms Below Knee: 0.7 cm; Reflux: 640 ms Mid Calf: 0.6 cm; Reflux: 0 ms Ankle: 0.3 cm; Reflux: 1468 ms DUPLICATED MEDIAL GREAT SAPHENOUS VEIN: Diameter: None imaged Reflux: NA DUPLICATED LATERAL GREAT SAPHENOUS VEIN: Diameter: 0.9 cm Reflux: 2080 ms SMALL SAPHENOUS VEIN: Proximal: Not visualized Distal: Not visualized VEIN OF GIACOMINI: Size: NA Reflux: NA PERFORATORS: Location: Proximal calf Size: 0.3 to 0.4 cm Reflux: 1372 ms VARICOSITIES: Location: Extensive varicosities arising from the great saphenous vein in the thigh, knee and calf Size: Ranging in size from 0.3 cm to 0.7 cm Reflux: Ranging from 532 ms to 2448 ms 3. DEEP VENOUS ULTRASOUND OF THE LEFT LOWER EXTREMITY: Common Femoral Vein: Compressible, normal respiratory variation and augmented flow. Femoral Vein: Compressible, normal color flow and augmentation. Popliteal Vein: Compressible, normal augmentation. Deep Reflux: Deep venous reflux seen in the popliteal vein measuring 1264 ms There is no evidence of a [place]'s cyst. 4. SUPERFICIAL ULTRASOUND WITH DOPPLER OF LEFT LOWER EXTREMITY: GREAT SAPHENOUS VEIN: Saphenofemoral Junction: 1.3 cm; Reflux: 0 ms Proximal Thigh: 1.1 cm; Reflux: 0 ms Mid Thigh: 0.8 cm; Reflux: 1628 ms Above Knee: 0.9 cm; Reflux: 2260 ms At Knee: 0.7 cm; Reflux: 1260 ms Below Knee: 0.8 cm; Reflux: 1476 ms Mid Calf: 0.8 cm; Reflux: 788 ms Ankle: 0.4 cm; Reflux: 1156 ms DUPLICATED MEDIAL GREAT SAPHENOUS VEIN: Diameter: None imaged Reflux: NA DUPLICATED LATERAL GREAT SAPHENOUS VEIN: Diameter: 0.4 cm Reflux: None SMALL SAPHENOUS VEIN: Proximal: 0.2 cm; Reflux: 0 ms Distal: 0.2 cm; Reflux: 0 ms VEIN OF GIACOMINI: Size: NA Reflux: NA PERFORATORS: Location: Proximal and mid calf Size: 0.3 to 0.7 cm Reflux: None VARICOSITIES: Location: Extensive varicosities arising from the great saphenous vein within the thigh and midcalf Size: Ranging from 0.4 to 0.6 cm Reflux: 1032 ms in the mid thigh US/US venous duplex LE BI IMPRESSION: Right: Severe reflux throughout the great saphenous vein and a lateral duplicated great saphenous vein within the thigh. Extensive varicosities throughout the right lower extremity with severe reflux Left: Severe reflux throughout the left great saphenous vein. Extensive varicosities throughout the left lower extremity with severe reflux as described above. Deep venous reflux seen in the left popliteal vein
== END 2023-05-02 10:32 | disposition home or self-care (01) ==
LOC: HO.US 10:31
PROVIDERS: PCP Internal Medicine; Visit Provider Physician Assistant
DX: I87.2 Venous insufficiency (chronic) (peripheral) (principal); L97.822 Non-pressure chronic ulcer of other part of left lower leg with fat layer exposed
CPT/HCPCS: 93970

== ENCOUNTER 2023-07-07 08:48 | Outpatient (AMB) | payer MEDICARE, SELFPAY ==
[2023-07-07 08:52] VITALS: BP 152/78; PULSE 71; O2SAT 98; BMI 51.3
--- NOTE | 2023-07-07 08:52 | A.OFFVIS_ITS ---
Intake Vital Signs 07/07/23 08:52 07/07/23 09:30 Height 6 ft 1 in Weight 389 lb BMI 51.3 BP 152/78 H 138/72 Blood Pressure Location Lt brachial Lt brachial Position Sitting Sitting Pulse 71 Pulse Source Pulse Oximeter Pulse Oximetry (%) 98 Oxygen Delivery Method Room Air Intake Visit Reasons: V [id number] Allergies No Known Allergies [NKDA] Allergy (Mild, Verified 07/07/23 08:52) NONE Medication List - Last Reconciled 07/07/23 by Delaney Marrero MD ascorbate calcium (vitamin C) 500 mg PO DAILY bisacodyl (Dulcolax (bisacodyl)) 10 mg (2 x 5 mg) PO BEDTIME blood pressure monitor (Blood Pressure Kit) As directed josé manuel.stocking,knee,reg,xlrg As directed 20-30 mm HG fluticasone propionate 50 mcg/actuation (Flonase Allergy Relief) 2 sprays intranasal DAILY hydrochlorothiazide 25 mg PO QAM 90 days lisinopril 40 mg PO DAILY meloxicam 15 mg PO DAILY metoprolol succinate ER 25 mg PO DAILY multivitamin,[id number] (Complete Multivitamin tablet) 1 tab PO DAILY pantoprazole (Protonix) 40 mg PO DAILY polyethylene glycol 3350 (Miralax) 238 grams PO ONCE tramadol 50 mg PO DAILY HPI SWV [id number] HPI Details 67-year-old morbidly obese male with imp aired glucose tolerance hypertension GERD arm lymphedema bilateral knee pain coming in for annual well visit. Last seen in February 2023 colonoscopy is due. Patient has a recent ultrasound of the blood vessels the lower extremities showing right severe reflux GSV extensive varicosities with severe reflux left severe reflux also. Patient also follows up with the wound care for the lymphedema advise basic pneumatic compression device patient is here for annual well visit. [facility] Medical History (Updated 07/07/23 @ 09:47 by Delaney Marrero MD) Weight gain Snores Lower extremity edema Legionnaires' disease Seborrheic dermatitis COVID-19 virus infection Asthma Allergic rhinitis Lymphedema Obstructive sleep apnea Gastric ulcer, unspecified as acute or chronic, without hemorrhage or perforation GERD (gastroesophageal reflux disease) Hypertension Surgical History H/O esophagogastroduodenoscopy Hx of colonoscopy History of lipoma History of ankle surgery Family History (Updated 02/28/23 @ 13:03 by THANG Stubbs) Father No problems noted. Mother No problems noted. Social History Housing: House Alcohol intake: never Patient Tobacco Use Status: Never used Tobacco e-Cigarette/Vaping Use: Never Used Second Hand Smoke Exposure: No service: No Current occupational status: retired Cognitive needs: Yes (Cane) Hearing needs: No Vision needs: Yes Questionnaire Medicare Wellness Checkup What [age] What gender do you identify with?: male During the past 4 weeks, how much have you been bothered by emotional problems such as feeling anxious, depressed, irritable, sad or downhearted, and blue?: not at all During the past 4 weeks, has your physical & emotional health limited your social activities with family, friends, neighbors, or groups?: not at all During the past 4 weeks, how much bodily pain have you generally had?: mild pain During the past 4 weeks, was someone available to help you if you needed & wanted help?: yes, as much as I wanted During the past 4 weeks, what was the hardest physical activity you could do for at least 2 minutes?: moderate Can you get to places out of walking distance without help? (For eg., can you travel alone on buses, taxis or drive your car?): Yes Can you go shopping for groceries or clothes without someone's help?: Yes Can you prepare your own meals?: Yes Can you do your housework without help?: Yes Because of any health problems, do you need the help of another person with your personal care needs such as eating, bathing, dressing or getting around the house?: Yes Can you handle your own money without help?: Yes During the past 4 weeks, how would you rate your health in general?: good During the past 4 weeks how have things been going for you?: pretty well Are you having difficulties driving your car?: no Do you always fasten your seat belt when you are in a car?: yes, usually During past 4 weeks, have you been bothered by the following: never: Falling or dizzy when standing up, Sexual problems?, Trouble eating well?, Problems using the telephone? and Tiredness or fatigue? and seldom: Teeth or denture problems? Have you fallen 2 or more times in the past year?: No Are you afraid of falling?: No Are you a smoker?: no During the past 4 weeks, how many drinks of wine, beer, or other alcoholic beverages did you have?: no alcohol at all Do you exercise for about 20 minutes 3 or more times a week?: no, I usually do not exercise this much Have you been given information to help with the following?: yes: Hazards in your house that might hurt you? and yes: Keeping track of your medications? How often do you have trouble taking medicines the way you have been told to take them?: I always take medicine as prescribed How confident are you that you can control & manage most of your health problems?: very confident What is your race?: White PHQ-9 Over the last 2 weeks, how often have you been bothered by any of the following problems? 1. Little interest or pleasure in doing things: not at all 2. Feeling down, depressed, or hopeless: not at all 3. Trouble falling or staying asleep, or sleeping too much: not at all 4. Feeling tired or having little energy: not at all 5. Poor appetite or overeating: several days 6. Feeling bad about yourself - or that you are a failure or have let yourself or your family down: not at all 7. Trouble concentrating on things, such as reading the newspaper or watching television: not at all 8. Moving or speaking so slowly that other people could have noticed. Or the opposite - being so fidgety or restless that you have been moving around a lot more than usual: not at all 9. Thoughts that you would be better off or of hurting yourself in some way: not at all Total score: 1 Depression Screening Interpretation: Positive Depression Screening Done: Yes Source: Developed by Drs. Hai Gipson, Maria De La Cruz, Raymundo Alvarado and colleagues, with an educational chencho from [employer]. Thrive Questionnaire Date Thrive assessed: 01/03/23 JACKSON-7 AMB Questionnaire JACKSON-7 Date JACKSON - 7 assessed: 01/03/23 Source: Developed by Drs. Hai Gipson, Maria De La Cruz, Raymundo Alvarado and colleagues, with an educational chencho from [employer]. Review of Systems Const Denies poor appetite and Denies weakness Eyes Denies no additional complaints ENT Reports Normal hearing present, Denies dizziness, Denies nasal congestion, Denies tinnitus and Denies sore throat Card Denies chest pain, Denies syncope, Denies rapid heart rate and Denies dyspnea Resp Denies cough and Denies dyspnea GI Denies change in stool character, Reports constipation, Denies diarrhea, Denies nausea and Denies vomiting Denies dysuria and Denies urinary frequency Neuro Reports Normal hearing present, Denies confusion, Denies dizziness, Denies syncope and Denies weakness Psych Denies confusion Physical Exam Vital Signs: Last Vital Signs Pulse 71 07/07/23 08:52 BP 152/78 H 07/07/23 08:52 Pulse Ox 98 07/07/23 08:52 Oxygen Delivery Method Room Air 07/07/23 08:52 BMI result Body Mass Index 51.3 Const General: No confusion Orientation/consciousness: No confusion HEENT Head: Yes normocephalic Ears: external ears normal and TM's normal bilaterally Face and sinus: Yes normal facial exam Mouth: moist mucous membranes Throat: Yes tonsils normal Eyes Conjunctivae: conjunctivae normal Pupils: Equal, round and reactive pupils present and Pupil accommodation reflex normal Direct Ophthalmoscopy: normal light reflex Neck Neck: No lymphadenopathy Thyroid: Thyroid normal Chest Chest palpation & inspection: normal inspection of the chest Resp Effort & Inspection: normal respiratory effort and no audible wheezes Auscultation: clear to auscultation bilaterally, no crackles, no wheezes and lung sounds not diminished Cardio Rate: regular rate Rhythm: regular rhythm Peripheral pulses: radial pulses present and dorsalis pedis present GI Palpation (GI): no masses Auscultation: normal bowel sounds and normoactive bowel sounds Rectal Exam - Male: Yes deferred Skin General skin exam: no rashes or lesions noted Rashes: no rashes Neuro General: No confusion Cranial nerves: Yes Equal, round and reactive pupils present and Yes Normal hearing present Cognition (Neuro): normal cognition Gait exam (Neuro): Normal gait present Motor exam (neuro): 5/5 motor strength present throughout Deep tendon reflexes (DTR's): Right brachioradialis reflex intensity grade: 2+, Left brachioradialis reflex intensity grade: 2+, Right patellar reflex intensity grade: 2+ and Left patellar reflex intensity grade: 2+ Extrem General: No edema Office Procedures Flu Questionnaire Does the patient have a severe egg allergy?: No Does the patient have severe life threatening allergies?: No Does the patient have a fever or illness today?: No Has the patient ever had Guillain-[place] Syndrome?: No Has the patient ever had any past reaction to a flu shot?: No Immunizations flu vacc [id number] 6mos up(PF) 60 mcg(15 mcgx4)/0.5 mL IM syringe Performing Provider: Delaney Marrero MD [facility] Administered by: Sharlene Aguilar CMA on 07/07/23 09:13 Dose Route Admin Location Dispensed Lot Number Expiration Date NDC [employer] 0.5 mL IM Left Deltoid 0.5 mL [id number] 03/11/24 15650-891-52 [employer] VIS Given Date VIS Provided VIS Publication Date 07/07/23 Single Vaccine 21 Eligibility Eligibility Date Funding Source Not [facility] Eligible 07/07/23 Private Assessment & Plan Assessment & Plan (1) Medicare annual wellness visit, subsequent: Code(s): Z00.00 - Encounter for general adult medical examination without abnormal findings (2) Lymphedema: Code(s): I89.0 - Lymphedema, not elsewhere classified Plan: Patient is being followed up by Wound Care and was given pneumatic compression (3) Knee osteoarthritis: Code(s): M17.10 - Unilateral primary osteoarthritis, unspecified knee Qualifiers: Osteoarthritis type: primary Laterality: bilateral Qualified Code(s): M17.0 - Bilateral primary osteoarthritis of knee Plan: Patient needs to lose the weight (4) Morbid obesity with BMI of 50.0-59.9, adult: Code(s): E66.01 - Morbid (severe) obesity due to excess calories; Z68.43 - Body mass index [BMI] 50.0-59.9, adult Plan: Diet and exercise (5) Tubulovillous adenoma of colon: Comment: 2020 TVA 1 TA repeat 1 year, also sessile polyp Code(s): D12.6 - Benign neoplasm of colon, unspecified Plan: Patient is reminded about colonoscopy (6) Impaired fasting glucose: Code(s): R73.01 - Impaired fasting glucose Plan: Decrease the amount of carbohydrate intake, pasta, bread, rice and potatoes are all sugar and that is aside from all the sweet stuff, remember that fruits are good but they are Sweet also. (7) Peripheral vascular disease: Code(s): I73.9 - Peripheral vascular disease, unspecified Plan: When sitting down elevate the legs, exercise, and support stockings (8) Obstructive sleep apnea: Comment: does not use CPAP-New sleep study done on 11/26/21. Severe degree of sleep apnea. Total AHI 44/hr and oxygen liz was 67% Code(s): G47.33 - Obstructive sleep apnea (adult) (pediatric) Plan: Discussed the importance of having treatment for sleep apnea (9) GERD (gastroesophageal reflux disease): Comment: Managed by his PCP Code(s): K21.9 - Gastro-esophageal reflux disease without esophagitis Qualifiers: Esophagitis presence: without esophagitis Qualified Code(s): K21.9 - Gastro-esophageal reflux disease without esophagitis Plan: Avoid the foods that causes that usually spicy foods, tomato products, juices, c offee, soda and foods that your sensitive to. After eating do not lie down, allow 3-4 hours before in lie down. And keep the head of bed above 30 degrees to avoid the acid from going up. (10) Hypertension: Code(s): I10 - Essential (primary) hypertension Qualifiers: Hypertension type: essential hypertension Qualified Code(s): I10 - Essential (primary) hypertension Plan: Continue with blood pressure medication. Decrease salt intake and exercise patient on lisinopril 40 mg once a day and hydrochlorothiazide 25 mg once a day and metoprolol 25 mg once a day (11) Multiple pigmented nevi: Code(s): D22.9 - Melanocytic nevi, unspecified (12) Onychomycosis: Code(s): B35.1 - Tinea unguium (13) Tinea cruris: Code(s): B35.6 - Tinea cruris (14) Tinea pedis: Code(s): B35.3 - Tinea pedis Orders: Orders Influenza [id number] Immunization Today Z23 - Encounter for immunization Complete Blood Count Auto Diff Today I10 - Essential (primary) hypertension Comprehensive Met. Panel Today I10 - Essential (primary) hypertension Hemoglobin A1c Today R73.01 - Impaired fasting glucose Thyroid Stimulating Hormone Today R73.01 - Impaired fasting glucose Free T4 (Free Thyroxine) Today R73.01 - Impaired fasting glucose Vitamin B12 and Folate Today R73.01 - Impaired fasting glucose Lipid Panel Today E78.00 - Pure hypercholesterolemia, unspecified, I10 - Essential (primary) hypertension Prostate Specific Antigen Scr Today R73.01 - Impaired fasting glucose Referrals Dermatology Referral D22.9 - Melanocytic nevi, unspecified Podiatry Referral B35.1 - Tinea unguium Medications: New clotrimazole 1% 1 appl topical BID 4 weeks 90 grams 0RF B35.6 - Tinea cruris miconazole nitrate 2% (Zeasorb AF) 1 appl topical DAILY 85 grams 0RF B35.3 - Tinea pedis, B35.6 - Tinea cruris Refilled tramadol 50 mg PO DAILY 90 tabs 2RF M17.10 - Unilateral primary osteoarthritis, unspecified knee Quality Reporting (2019) Depression/Bipolar (159/160/161/177) PHQ-9: Total score: 1 Coding Level of Care Code Medicare Subsequent (G0439) Diagnoses Medicare annual wellness visit, subsequent Z00.00 Lymphedema I89.0 Primary osteoarthritis of both knees M17.0 Osteoarthritis type: primary Laterality: bilateral Morbid obesity with BMI of 50.0-59.9, adult E66.01; Z68.43 Tubulovillous adenoma of colon D12.6 Impaired fasting glucose R73.01 Peripheral vascular disease I73.9 Obstructive sleep apnea G47.33 Gastroesophageal reflux disease without esophagitis K21.9 Esophagitis presence: without esophagitis Essential hypertension I10 Hypertension type: essential hypertension Multiple pigmented nevi D22.9 Onychomycosis B35.1 Tinea cruris B35.6 Tinea pedis B35.3
[2023-07-07 09:30] VITALS: BP 138/72
== END 2023-07-07 09:55 | disposition home or self-care (01) ==
PROVIDERS: Visit Provider Internal Medicine
DX: Z23 Encounter for immunization (principal)
CPT/HCPCS: 90471; 90686; G0439

== ENCOUNTER 2023-10-05 08:30 | Outpatient (REF) | payer MEDICARE, SELFPAY ==
[2023-10-05 08:43] LABS: MANUAL DIFF FLAG NO
[2023-10-05 09:29] LABS: Estimated Average Glucose 126 mg/dL
[2023-10-05 09:36] LABS: Basophils Absolute Auto 0.1 X10*3/uL (0.0-0.2); Basophils Percent Auto 0.7 % (0-2); Eosinophils Absolute Auto 0.5 X10*3/uL (0.0-0.4); Eosinophils Percent Auto 4.5 % (0-4); Hematocrit 43.7 % (42.0-52.0); Hemoglobin 13.9 g/dl (14.0-18.0); Imm Gran Abs Auto 0.04 X10*3/uL (0.00-0.03); Imm Gran Pct Auto 0.4 % (0.0-0.4); Lymphocytes Percent Auto 28.9 % (20-40); Mean Corpuscular HGB Conc 31.8 g/dl (31.0-36.0); Mean Corpuscular Hemoglobin 28.4 pg (27.0-33.0); Mean Corpuscular Volume 89.2 fL (80.0-98.0); Monocytes Absolute Auto 0.6 X10*3/uL (0.1-1.2); Monocytes Percent Auto 5.9 % (2-11); Neutrophils Absolute Auto 6.1 x10*3/uL (2.0-8.3); Neutrophils Percent Auto 59.6 % (45-73); Platelet Count 257 X10*3/uL (160-400); White Blood Count 10.3 X10*3/uL (4.8-10.8)
[2023-10-05 10:13] LABS: Alanine Aminotransferase 26 U/L (0-40); Albumin Level 3.8 g/dL (3.5-5.0); Alkaline Phosphatase 70 U/L (39-117); Anion Gap 14 (12-20); Aspartate Amino Transferase 20 U/L (5-37); Bilirubin Total 0.7 mg/dL (0.0-1.0); Blood Urea Nitrogen 30 mg/dL (9-16); Calcium 9.4 mg/dL (8.4-10.2); Carbon Dioxide 25 mmol/L (22-29); Chloride 107 mmol/L (96-108); Cholesterol 155 mg/dL (<200); Estimated Glomerular Filt Rate > 60; Glucose Random 107 mg/dL (60-115); HDL Cholesterol 37 mg/dL (>40); LDL Cholesterol Calculated 103 mg/dL (<100); Potassium 4.2 mmol/L (3.3-5.1); Sodium 142 mmol/L (135-145); Total Protein 7.1 g/dL (6.5-8.0); Triglycerides 76 mg/dL (<150)
[2023-10-05 10:30] LABS: Free T4 (Free Thyroxine) 0.96 ng/dL (0.71-1.85); Thyroid Stimulating Hormone 2.36 uIU/mL (0.32-4.0)
[2023-10-05 10:41] LABS: Folate 11.3 ng/mL (> or = 4.0); Prostate Specific Antigen Scr 1.08 ng/mL (<0.05-4.0); Vitamin B12 376 pg/mL (200-900)
== END 2023-10-05 08:31 | disposition home or self-care (01) ==
LOC: HO.LAB 08:30
PROVIDERS: PCP Internal Medicine; Visit Provider Internal Medicine
DX: I10 Essential (primary) hypertension (principal); R73.01 Impaired fasting glucose; E78.00 Pure hypercholesterolemia, unspecified; Z12.5 Encounter for screening for malignant neoplasm of prostate
CPT/HCPCS: 36415; 80053; 80061; 82607; 82746; 83036; 84153; 84439; 84443; 85025

== ENCOUNTER 2023-10-20 08:15 | Outpatient (AMB) | payer MEDICARE, SELFPAY ==
[2023-10-20 08:33] VITALS: BP 158/70; PULSE 67; O2SAT 97; BMI 51.4
--- NOTE | 2023-10-20 08:33 | MHC.PC.OV ---
Vital Signs 10/20/23 08:33 10/20/23 08:45 Height 6 ft 1 in Weight 390 lb BMI 51.4 BP 158/70 H 142/70 H Blood Pressure Location Lt brachial Lt brachial Position Sitting Sitting Pulse 67 Pulse Source Pulse Oximeter Pulse Oximetry (%) 97 Oxygen Delivery Method Room Air Intake Visit Reasons: 3 month f/u Family Literacy Coordinator Required: No Allergies No Known Allergies [NKDA] Allergy (Mild, Verified 10/20/23 08:35) NONE Medication List - Last Reconciled 10/20/23 by Delaney Marrero MD ascorbate calcium (vitamin C) 500 mg PO DAILY bisacodyl (Dulcolax (bisacodyl)) 10 mg (2 x 5 mg) PO BEDTIME blood pressure monitor (Blood Pressure Kit) As directed clotrimazole 1% 1 appl topical BID 4 weeks josé manuel.stocking,knee,reg,xlrg As directed 20-30 mm HG fluticasone propionate 50 mcg/actuation (Flonase Allergy Relief) 2 sprays intranasal DAILY hydrochlorothiazide 25 mg PO QAM 90 days lisinopril 40 mg PO DAILY meloxicam 15 mg PO DAILY metoprolol succinate ER 25 mg PO DAILY miconazole nitrate 2% (Zeasorb AF) 1 appl topical DAILY multivitamin,[id number] (Complete Multivitamin tablet) 1 tab PO DAILY pantoprazole (Protonix) 40 mg PO DAILY polyethylene glycol 3350 (Miralax) 238 grams PO ONCE tramadol 50 mg PO DAILY Tobacco use date assessed: 10/20/23 Fall risk assessment: No Falls in past year Last assessed Fall Risk: 10/20/23 Dental Screening Dental Screen Date: 10/20/23 Did you have a dental visit in the last 12 months?: Yes Did you have a dental problem in the last 6 months where you did not have access to dental care?: No Was dental information given to patient?: Patient has dentist HPI 3 month f/u HPI Details 68-year-old morbidly obese male with hypertension obstructive sleep apnea GERD peripheral vascular disease impaired glucose tolerance tubular adenoma on colonoscopy osteoarthritis lymphedema coming in for follow-up. Last seen June 2023 lab work done [facility] Medical History (Updated 10/20/23 @ 08:54 by Delaney Marrero MD) Weight gain Snores Lower extremity edema Legionnaires' disease Seborrheic dermatitis COVID-19 virus infection Asthma Allergic rhinitis Lymphedema Obstructive sleep apnea Gastric ulcer, unspecified as acute or chronic, without hemorrhage or perforation GERD (gastroesophageal reflux disease) Hypertension Surgical History H/O esophagogastroduodenoscopy Hx of colonoscopy History of lipoma History of ankle surgery Family History (Updated 02/28/23 @ 13:03 by THANG Stubbs) Father No problems noted. Mother No problems noted. Social History Housing: House Alcohol intake: never Patient Tobacco Use Status: Never used Tobacco e-Cigarette/Vaping Use: Never Used Second Hand Smoke Exposure: No service: No Current occupational status: retired Cognitive needs: Yes (Cane) Hearing needs: No Vision needs: Yes Questionnaire Thrive Questionnaire Date Thrive assessed: 10/20/23 JACKSON-7 AMB Questionnaire JACKSON-7 Date JACKSON - 7 assessed: 10/20/23 Source: Developed by Drs. Hai Gipson, Maria De La Cruz, Raymundo Alvarado and colleagues, with an educational chencho from [employer]. Physical exam (Primary Care) Vital Signs: Last Vital Signs Pulse 67 10/20/23 08:33 BP 158/70 H 10/20/23 08:33 Pulse Ox 97 10/20/23 08:33 Oxygen Delivery Method Room Air 10/20/23 08:33 BMI result Body Mass Index 51.4 Tobacco/Smoking Status: Tobacco use Status Tobacco use date assessed 10/20/23 10/20/23 08:38 Patient Tobacco Use Status Never used Tobacco 10/20/23 08:38 e-Cigarette/Vaping Use Never Used 10/20/23 08:38 Thrive Assessment: Date of Thrive Assessment Date Thrive assessed 10/20/23 10/20/23 08:38 Const General: alert; No acute distress Eyes Conjunctivae: conjunctivae normal Resp Auscultation: clear to auscultation bilaterally Cardio Rate: regular rate Rhythm: regular rhythm GI Inspection: Yes normal to inspection Extrem General: Yes normal to inspection and No edema Assessment and Plan Assessment & Plan (1) Tubulovillous adenoma of colon: Comment: 2020 TVA 1 TA repeat 1 year, also sessile polyp Code(s): D12.6 - Benign neoplasm of colon, unspecified Plan: Patient is reminded about colonoscopy (2) Obstructive sleep apnea: Comment: does not use CPAP-New sleep study done on 11/26/21. Severe degree of sleep apnea. Total AHI 44/hr and oxygen liz was 67% Code(s): G47.33 - Obstructive sleep apnea (adult) (pediatric) Plan: Discussed importance of getting sleep apnea treatment- cannot tolerate CPAP (3) Hypertension: Code(s): I10 - Essential (primary) hypertension Qualifiers: Hypertension type: essential hypertension Qualified Code(s): I10 - Essential (primary) hypertension Plan: Continue with blood pressure medication. Decrease salt intake and exercise presently on hydrochlorothiazide 25 mg once a day lisinopril 40 mg once a day metoprolol 25 mg once a day. BP high increase metoprolol to 50 mg QD (4) GERD (gastroesophageal reflux disease): Comment: Managed by his PCP Code(s): K21.9 - Gastro-esophageal reflux disease without esophagitis Qualifiers: Esophagitis presence: without esophagitis Qualified Code(s): K21.9 - Gastro-esophageal reflux disease without esophagitis Plan: Avoid the foods that causes that usually spicy foods, tomato products, juices, coffee, soda and foods that your sensitive to. After eating do not lie down, allow 3-4 hours before in lie down. And keep the head of bed above 30 degrees to avoid the acid from going up. (5) Impaired fasting glucose: Code(s): R73.01 - Impaired fasting glucose Plan: Decrease the amount of carbohydrate intake, pasta, bread, rice and potatoes are all sugar and that is aside from all the sweet stuff, remember that fruits are good but they are Sweet also. (6) Obesity: Code(s): E66.9 - Obesity, unspecified Plan: Diet and exercise (7) Knee osteoarthritis: Code(s): M17.10 - Unilateral primary osteoarthritis, unspecified knee Qualifiers: Osteoarthritis type: primary Laterality: bilateral Qualified Code(s): M17.0 - Bilateral primary osteoarthritis of knee Plan: Try to lose the weight! (8) Prediabetes: Code(s): R73.03 - Prediabetes Medications: New tirzepatide (weight loss) (Zepbound) 2.5 mg (0.5 mL) subcut QWEEK 4 weeks 2 mL 1RF E66.01 - Morbid (severe) obesity due to excess calories, R73.03 - Prediabetes, Z68.43 - Body mass index [BMI] 50.0-59.9, adult Changed From metoprolol succinate ER 25 mg PO DAILY 30 tabs 4RF I10 - Essential (primary) hypertension To metoprolol succinate ER 50 mg PO DAILY 90 tabs 3RF I10 - Essential (primary) hypertension Coding Level of Care Code Est Pt Level 4 (62141) Diagnoses Tubulovillous adenoma of colon D12.6 Obstructive sleep apnea G47.33 Essential hypertension I10 Hypertension type: essential hypertension Gastroesophageal reflux disease without esophagitis K21.9 Esophagitis presence: without esophagitis Impaired fasting glucose R73.01 Obesity E66.9 Primary osteoarthritis of both knees M17.0 Osteoarthritis type: primary Laterality: bilateral Prediabetes R73.03
[2023-10-20 08:45] VITALS: BP 142/70
== END 2023-10-20 09:00 | disposition home or self-care (01) ==
PROVIDERS: PCP Internal Medicine; Visit Provider Internal Medicine
DX: G47.33 Obstructive sleep apnea (adult) (pediatric) (principal); Z68.43 Body mass index [BMI] 50.0-59.9, adult; E66.9 Obesity, unspecified; D12.6 Benign neoplasm of colon, unspecified; I10 Essential (primary) hypertension; K21.9 Gastro-esophageal reflux disease without esophagitis; R73.01 Impaired fasting glucose; M17.0 Bilateral primary osteoarthritis of knee; R73.03 Prediabetes
CPT/HCPCS: 99214

== ENCOUNTER 2024-01-20 08:17 | Outpatient (AMB) | payer MEDICARE, SELFPAY ==
[2024-01-20 08:28] VITALS: BP 162/70; PULSE 69; BMI 52.4
--- NOTE | 2024-01-20 08:29 | MHC.PC.OV ---
Vital Signs 01/20/24 08:28 Height 6 ft 1 in Weight 397 lb BMI 52.4 BP 162/70 H Blood Pressure Location Lt brachial Position Sitting Pulse 69 Pulse Source Pulse Oximeter Oxygen Delivery Method Room Air Intake Visit Reasons: Hypertension Allergies lisinopril Adverse Reaction (Intermediate, Verified 01/20/24 08:29) Angioedema Medication List - Last Reconciled 01/20/24 by Delaney Marrero MD ascorbate calcium (vitamin C) 500 mg PO DAILY bisacodyl (Dulcolax (bisacodyl)) 10 mg (2 x 5 mg) PO BEDTIME blood pressure monitor (Blood Pressure Kit) As directed clotrimazole 1% 1 appl topical BID 4 weeks josé manuel.stocking,knee,reg,xlrg As directed 20-30 mm HG fluticasone propionate 50 mcg/actuation (Flonase Allergy Relief) 2 sprays intranasal DAILY hydrochlorothiazide 25 mg PO QAM 90 days meloxicam 15 mg PO DAILY metoprolol succinate ER 100 mg PO DAILY miconazole nitrate 2% (Zeasorb AF) 1 appl topical DAILY multivitamin,[id number] (Complete Multivitamin tablet) 1 tab PO DAILY pantoprazole (Protonix) 40 mg PO DAILY polyethylene glycol 3350 (Miralax) 238 grams PO ONCE tirzepatide (weight loss) (Zepbound) 2.5 mg (0.5 mL) subcut QWEEK 4 weeks tramadol 50 mg PO DAILY Tobacco use date assessed: 01/20/24 Dental Screening Dental Screen Date: 10/20/23 HPI Hypertension HPI Details 68-year-old morbidly obese male with a history of obstructive sleep apnea hypertension GERD impaired glucose tolerance knee osteoarthritis last seen in October 2023. Patient was reminded about the colonoscopy needed to be done. Patient is here for follow-up. Received a call recently patient had swelling of the lips and tongue and concern on lisinopril blood pressure medication. Patient was advised to hold off. R leg swelling states ran out of HCTZ but was renewed- 3 weeks ago lip swollen lasted 2 hours then resolved, no new med then yesteday tongue hurt 6 hours later better, no sob, weufosof2t with the patgient that we have to d/c lisinopril [facility] Medical History (Updated 01/20/24 @ 08:50 by Delaney Marrero MD) Weight gain Snores Lower extremity edema Legionnaires' disease Seborrheic dermatitis COVID-19 virus infection Asthma Allergic rhinitis Lymphedema Obstructive sleep apnea Gastric ulcer, unspecified as acute or chronic, without hemorrhage or perforation GERD (gastroesophageal reflux disease) Hypertension Surgical History H/O esophagogastroduodenoscopy Hx of colonoscopy History of lipoma History of ankle surgery Family History (Updated 02/28/23 @ 13:03 by THANG Stubbs) Father No problems noted. Mother No problems noted. Social History Housing: House Alcohol intake: never Patient Tobacco Use Status: Never used Tobacco e-Cigarette/Vaping Use: Never Used Second Hand Smoke Exposure: No service: No Current occupational status: retired Cognitive needs: Yes (Cane) Hearing needs: No Vision needs: Yes Questionnaire Thrive Questionnaire Date Thrive assessed: 10/20/23 AUDIT C Alcohol Use Questionnaire (AUDIT-C) 1. How often do you have a drink containing alcohol?: Never 3. How often do you have six or more drinks on one occasion?: Never Total Score: 0 JACKSON-7 AMB Questionnaire JACKSON-7 Date JACKSON - 7 assessed: 10/20/23 Source: Developed by Drs. Hai Gipson, Maria De La Cruz, Raymundo Alvarado and colleagues, with an educational chencho from [employer]. Physical exam (Primary Care) Vital Signs: Last Vital Signs Pulse 69 01/20/24 08:28 BP 162/70 H 01/20/24 08:28 Oxygen Delivery Method Room Air 01/20/24 08:28 BMI result Body Mass Index 52.4 Tobacco/Smoking Status: Tobacco use Status Tobacco use date assessed 01/20/24 01/20/24 08:37 Patient Tobacco Use Status Never used Tobacco 01/20/24 08:37 e-Cigarette/Vaping Use Never Used 01/20/24 08:37 Thrive Assessment: Date of Thrive Assessment Date Thrive assessed 10/20/23 01/20/24 08:37 Assessment and Plan Assessment & Plan (1) Angioedema: Code(s): T78.3XXA - Angioneurotic edema, initial encounter Plan: discontinue with lisinopril (2) Hypertension: Code(s): I10 - Essential (primary) hypertension Qualifiers: Hypertension type: essential hypertension Qualified Code(s): I10 - Essential (primary) hypertension Plan: d/c lisinoprol start on higher dose of metoprolol 100 mg (3) Morbid obesity: Comment: BMI 53 Code(s): E66.01 - Morbid (severe) obesity due to excess calories (4) Prediabetes: Code(s): R73.03 - Prediabetes Medications: New semaglutide (weight loss) (Wegovy) administer weeks 1 through 4 of therapy 0.25 mg (0.5 mL) subcut QWEEK 2 mL 2RF E66.01 - Morbid (severe) obesity due to excess calories, R73.03 - Prediabetes Changed From metoprolol succinate ER 50 mg PO DAILY 90 tabs 3RF I10 - Essential (primary) hypertension To metoprolol succinate ER 100 mg PO DAILY 30 tabs 3RF I10 - Essential (primary) hypertension Refilled tramadol 50 mg PO DAILY 90 tabs 2RF M17.10 - Unilateral primary osteoarthritis, unspecified knee Discontinued tirzepatide (weight loss) (Zepbound) Discontinued Reason: Insurance Denied 2.5 mg (0.5 mL) subcut QWEEK 4 weeks 2 mL 1RF E66.01 - Morbid (severe) obesity due to excess calories, R73.03 - Prediabetes, Z68.43 - Body mass index [BMI] 50.0-59.9, adult Coding Level of Care Code Est Pt Level 4 (42714) Diagnoses Angioedema T78.3XXA Essential hypertension I10 Hypertension type: essential hypertension Morbid obesity E66.01 Prediabetes R73.03
== END 2024-01-20 08:54 | disposition home or self-care (01) ==
PROVIDERS: PCP Internal Medicine; Visit Provider Internal Medicine
DX: R73.03 Prediabetes (principal); E66.01 Morbid (severe) obesity due to excess calories; Z68.43 Body mass index [BMI] 50.0-59.9, adult; I10 Essential (primary) hypertension; T78.3XXA Angioneurotic edema, initial encounter
CPT/HCPCS: 99214

== ENCOUNTER 2024-07-16 11:21 | Outpatient (AMB) | payer MEDICARE, SELFPAY ==
--- NOTE | 2024-07-16 11:25 | A.OFFVIS_ITS ---
Intake Vital Signs 07/16/24 11:26 Height 6 ft 1 in Weight 408 lb BMI 53.8 BP 162/68 H Blood Pressure Location Lt brachial Position Sitting Pulse 97 Pulse Source Pulse Oximeter Pulse Oximetry (%) 98 Oxygen Delivery Method Room Air Intake Visit Reasons: [facility] G0439 Intake Note: Patient is here for an Annual Wellness Visit. Allergies lisinopril Adverse Reaction (Intermediate, Verified 01/20/24 08:29) Angioedema Medication List - Last Reconciled 07/16/24 by Delaney Marrero MD ascorbate calcium (vitamin C) 500 mg PO DAILY bisacodyl (Dulcolax (bisacodyl)) 10 mg (2 x 5 mg) PO BEDTIME blood pressure monitor (Blood Pressure Kit) As directed clotrimazole 1% 1 appl topical BID 4 weeks josé manuel.stocking,knee,reg,xlrg As directed 20-30 mm HG fluticasone propionate 50 mcg/actuation (Flonase Allergy Relief) 2 sprays intranasal DAILY hydrochlorothiazide 25 mg PO QAM 90 days meloxicam 15 mg PO DAILY metoprolol succinate ER 100 mg PO DAILY miconazole nitrate 2% (Zeasorb AF) 1 appl topical DAILY multivitamin,[id number]-uvvzaqeh (Complete Multivitamin tablet) 1 tab PO DAILY pantoprazole (Protonix) 40 mg PO DAILY polyethylene glycol 3350 (Miralax) 238 grams PO ONCE semaglutide (weight loss) (Wegovy) 0.25 mg (0.5 mL) subcut QWEEK tramadol 50 mg PO DAILY HPI [facility] G0439 HPI Details 68-year-old morbidly obese male with 11 lb weight gain with hypertension GERD obstructive sleep apnea peripheral vascular disease impaired glucose tolerance osteoarthritis coming in for annual well visit last seen in January having angioedema and lisinopril was discontinued. Patient's last colonoscopy was in 03/01/2021 was advised to repeat. has occ incontinence bue decline workup ophthalmology Dr. Najera, podiatric Dr. Perez Colon test Dr. Valenzuela [facility] Medical History (Updated 07/16/24 @ 12:24 by Delaney Marrero MD) Obesity Weight gain Snores Lower extremity edema Legionnaires' disease Seborrheic dermatitis COVID-19 virus infection Asthma Allergic rhinitis Lymphedema Obstructive sleep apnea Gastric ulcer, unspecified as acute or chronic, without hemorrhage or perforation GERD (gastroesophageal reflux disease) Hypertension Surgical History H/O esophagogastroduodenoscopy Hx of colonoscopy History of lipoma History of ankle surgery Family History (Updated 02/28/23 @ 13:03 by THANG Stubbs) Father No problems noted. Mother No problems noted. Social History Housing: House Alcohol intake: never Patient Tobacco Use Status: Never used Tobacco e-Cigarette/Vaping Use: Never Used Second Hand Smoke Exposure: No service: No Current occupational status: retired Cognitive needs: Yes (Cane) Hearing needs: No Vision needs: Yes Questionnaire Medicare Wellness Checkup What [age] What gender do you identify with?: male During the past 4 weeks, how much have you been bothered by emotional problems such as feeling anxious, depressed, irritable, sad or downhearted, and blue?: not at all During the past 4 weeks, has your physical & emotional health limited your social activities with family, friends, neighbors, or groups?: slightly During the past 4 weeks, how much bodily pain have you generally had?: mild pain During the past 4 weeks, was someone available to help you if you needed & wanted help?: yes, as much as I wanted During the past 4 weeks, what was the hardest physical activity you could do for at least 2 minutes?: light Can you get to places out of walking distance without help? (For eg., can you travel alone on buses, taxis or drive your car?): Yes Can you go shopping for groceries or clothes without someone's help?: Yes Can you prepare your own meals?: Yes Can you do your housework without help?: Yes Because of any health problems, do you need the help of another person with your personal care needs such as eating, bathing, dressing or getting around the house?: Yes Can you handle your own money without help?: Yes During the past 4 weeks, how would you rate your health in general?: good During the past 4 weeks how have things been going for you?: good & bad parts about equal Are you having difficulties driving your car?: no Do you always fasten your seat belt when you are in a car?: yes, usually During past 4 weeks, have you been bothered by the following: never: Falling or dizzy when standing up, Sexual problems?, Trouble eating well?, Teeth or denture problems?, Problems using the telephone? and Tiredness or fatigue? Have you fallen 2 or more times in the past year?: No Are you afraid of falling?: Yes Are you a smoker?: no During the past 4 weeks, how many drinks of wine, beer, or other alcoholic beverages did you have?: no alcohol at all Do you exercise for about 20 minutes 3 or more times a week?: no, I usually do not exercise this much Have you been given information to help with the following?: yes: Hazards in your house that might hurt you? and yes: Keeping track of your medications? How often do you have trouble taking medicines the way you have been told to take them?: I always take medicine as prescribed How confident are you that you can control & manage most of your health problems?: very confident What is your race?: White PHQ-9 Over the last 2 weeks, how often have you been bothered by any of the following problems? 1. Little interest or pleasure in doing things: several days 2. Feeling down, depressed, or hopeless: not at all 3. Trouble falling or staying asleep, or sleeping too much: not at all 4. Feeling tired or having little energy: several days 5. Poor appetite or overeating: not at all 6. Feeling bad about yourself - or that you are a failure or have let yourself or your family down: not at all 7. Trouble concentrating on things, such as reading the newspaper or watching television: not at all 8. Moving or speaking so slowly that other people could have noticed. Or the opposite - being so fidgety or restless that you have been moving around a lot more than usual: not at all 9. Thoughts that you would be better off or of hurting yourself in some way: not at all Total score: 2 Depression Screening Interpretation: Negative Depression Screening Done: Yes 46790 - PHQ-9 Billing: Yes Source: Developed by Drs. Hai Gipson, Maria De La Cruz, Raymundo Alvarado and colleagues, with an educational chencho from [employer]. Review of Systems Const Denies poor appetite and Denies weakness Eyes Denies no additional complaints ENT Reports Normal hearing present, Denies dizziness, Denies nasal congestion, Denies tinnitus and Denies sore throat Card Denies chest pain, Denies syncope, Denies rapid heart rate and Denies dyspnea Resp Denies cough and Denies dyspnea GI Denies change in stool character, Reports constipation, Denies diarrhea, Denies nausea and Denies vomiting Denies dysuria and Denies urinary frequency Neuro Reports Normal hearing present, Denies confusion, Denies dizziness, Denies syncope and Denies weakness Psych Denies confusion Physical Exam Vital Signs: Last Vital Signs Pulse 97 07/16/24 11:26 BP 162/68 H 07/16/24 11:26 Pulse Ox 98 07/16/24 11:26 Oxygen Delivery Method Room Air 07/16/24 11:26 BMI result Body Mass Index 53.8 Const General: No confusion Orientation/consciousness: No confusion HEENT Head: Yes normocephalic Ears: external ears normal and TM's normal bilaterally Face and sinus: Yes normal facial exam Mouth: moist mucous membranes Throat: Yes tonsils normal Eyes Conjunctivae: conjunctivae normal Pupils: Equal, round and reactive pupils present and Pupil accommodation reflex normal Direct Ophthalmoscopy: normal light reflex Neck Neck: No lymphadenopathy Thyroid: Thyroid normal Chest Chest palpation & inspection: normal inspection of the chest Resp Effort & Inspection: normal respiratory effort and no audible wheezes Auscultation: clear to auscultation bilaterally, no crackles, no wheezes and lung sounds not diminished Cardio Rate: regular rate Rhythm: regular rhythm Peripheral pulses: radial pulses present and dorsalis pedis present GI Other: referred for colon test Palpation (GI): no masses Auscultation: normal bowel sounds and normoactive bowel sounds Rectal Exam - Male: Yes deferred Other: declined Skin General skin exam: no rashes or lesions noted Rashes: no rashes Neuro General: No confusion Cranial nerves: Yes Equal, round and reactive pupils present and Yes Normal hearing present Cognition (Neuro): normal cognition Gait exam (Neuro): Normal gait present Motor exam (neuro): 5/5 motor strength present throughout Deep tendon reflexes (DTR's): Right brachioradialis reflex intensity grade: 2+, Left brachioradialis reflex intensity grade: 2+, Right patellar reflex intensity grade: 2+ and Left patellar reflex intensity grade: 2+ Extrem Other: ++ edema bilateral with scaly mild red rash bilateal General: No edema Office Procedures Flu Questionnaire Does the patient have a severe egg allergy?: No Does the patient have severe life threatening allergies?: No Does the patient have a fever or illness today?: No Has the patient ever had Guillain-[place] Syndrome?: No Has the patient ever had any past reaction to a flu shot?: No Immunizations Fluarix Triv [id number] (PF) 45 mcg (15 mcg x 3)/0.5 mL IM syringe Performing Provider: Delaney Marrero MD [facility] [facility] [facility] [place] [facility] Administered by: Suzy Guaman LPN on 07/16/24 12:00 Dose Route Admin Location Dispensed Lot Number Expiration Date [employer] 0.5 mL IM Left Deltoid 0.5 mL [id number] 03/11/25 [id number] [employer] VIS Given Date VIS Provided VIS Publication Date 07/16/24 Single Vaccine 21 Eligibility Eligibility Date Funding Source Not [facility] Eligible 07/16/24 Private Assessment & Plan Assessment & Plan (1) Medicare annual wellness visit, subsequent: Code(s): Z00.00 - Encounter for general adult medical examination without abnormal findings Plan: Patient is advised to eat healthy, keep well hydrated, keep active and have adequate sleep. (2) Morbid obesity: Comment: BMI 53 Code(s): E66.01 - Morbid (severe) obesity due to excess calories Plan: Diet and exercise (3) Impaired fasting glucose: Code(s): R73.01 - Impaired fasting glucose Plan: Decrease the amount of carbohydrate intake, pasta, bread, rice and potatoes are all sugar and that is aside from all the sweet stuff, remember that fruits are good but they are Sweet also. (4) Colon cancer screening: Code(s): Z12.11 - Encounter for screening for malignant neoplasm of colon Plan: Patient is reminded about colonoscopy (5) Obstructive sleep apnea: Comment: does not use CPAP-New sleep study done on 11/26/21. Severe degree of sleep apnea. Total AHI 44/hr and oxygen liz was 67% Code(s): G47.33 - Obstructive sleep apnea (adult) (pediatric) Plan: Discussed importance of treating obstructive sleep apnea. But patient can not tolerate CPAP. (6) GERD (gastroesophageal reflux disease): Comment: Managed by his PCP Code(s): K21.9 - Gastro-esophageal reflux disease without esophagitis Qualifiers: Esophagitis presence: without esophagitis Qualified Code(s): K21.9 - Gastro-esophageal reflux disease without esophagitis Plan: Avoid the foods that causes that usually spicy foods, tomato products, juices, coffee, soda and foods that your sensitive to. After eating do not lie down, allow 3-4 hours before in lie down. And keep the head of bed above 30 degrees to avoid the acid from going up. (7) Hypertension: Code(s): I10 - Essential (primary) hypertension Qualifiers: Hypertension type: essential hypertension Qualified Code(s): I10 - Essential (primary) hypertension Plan: Continue with blood pressure medication. Decrease salt intake and exercise (8) Peripheral vascular disease: Code(s): I73.9 - Peripheral vascular disease, unspecified Plan: When sitting down elevate the legs, exercise, and support stockings (9) Asthma: Comment: 2010 PFT Code(s): J45.909 - Unspecified asthma, uncomplicated Plan: decline inhaler for now (10) SOB (shortness of breath) on exertion: Code(s): R06.02 - Shortness of breath Plan: declined testing for now and will call Orders: Orders Hemoglobin A1c Today R73.01 - Impaired fasting glucose Free T4 (Free Thyroxine) Today I10 - Essential (primary) hypertension UA w Microscopic Today I10 - Essential (primary) hypertension Ferritin Today I10 - Essential (primary) hypertension Influenza [id number] Immunization Today Z23 - Encounter for immunization Complete Blood Count Auto Diff Today R73.01 - Impaired fasting glucose Comprehensive Met. Panel Today R73.01 - Impaired fasting glucose Lipid Panel Today E78.00 - Pure hypercholesterolemia, unspecified, I10 - Essential (primary) hypertension Thyroid Stimulating Hormone Today I10 - Essential (primary) hypertension Vitamin B12 and Folate Today I10 - Essential (primary) hypertension Prostate Specific Antigen Scr Today I10 - Essential (primary) hypertension IRON PROFILE Today I10 - Essential (primary) hypertension Reticulocyte Count Today I10 - Essential (primary) hypertension Referrals General Surgery Referral Z12.11 - Encounter for screening for malignant neoplasm of colon Medications: New 2 Fluarix Triv [id number] (PF) (flu vacc [id number] 6mos up(PF)) 0.5 mL IM ONCE 0.5 mL 0RF NS Z23 - Encounter for immunization losartan 50 mg PO DAILY 30 tabs 3RF I10 - Essential (primary) hypertension Refilled fluticasone propionate 50 mcg/actuation (Flonase Allergy Relief) administer into each nostril 2 sprays intranasal DAILY 16 grams 2RF R09.81 - Nasal congestion pantoprazole (Protonix) 40 mg PO DAILY 90 tabs 2RF K21.9 - Gastro-esophageal reflux disease without esophagitis hydrochlorothiazide 25 mg PO QAM 90 tabs 2RF 90 days I10 - Essential (primary) hypertension semaglutide (weight loss) (Kamryn) administer weeks 1 through 4 of therapy 0.25 mg (0.5 mL) subcut QWEEK 2 mL 2RF E66.01 - Morbid (severe) obesity due to excess calories, R73.03 - Prediabetes Quality Reporting (2019) Depression/Bipolar (159/160/161/177) PHQ-9: Total score: 2 Coding Level of Care Code Medicare Subsequent (G0439) Diagnoses Medicare annual wellness visit, subsequent Z00.00 Morbid obesity E66.01 Impaired fasting glucose R73.01 Colon cancer screening Z12.11 Obstructive sleep apnea G47.33 Gastroesophageal reflux disease without esophagitis K21.9 Esophagitis presence: without esophagitis Essential hypertension I10 Hypertension type: essential hypertension Peripheral vascular disease I73.9 Asthma J45.909 SOB (shortness of breath) on exertion R06.02
[2024-07-16 11:26] VITALS: BP 162/68; PULSE 97; O2SAT 98; BMI 53.8
== END 2024-07-16 12:38 | disposition home or self-care (01) ==
LOC: HO.HMCH 11:21
PROVIDERS: PCP Internal Medicine; Visit Provider Internal Medicine
DX: Z00.00 Encounter for general adult medical examination without abnormal findings (principal); E66.01 Morbid (severe) obesity due to excess calories; I73.9 Peripheral vascular disease, unspecified; Z68.43 Body mass index [BMI] 50.0-59.9, adult; R73.01 Impaired fasting glucose; Z12.11 Encounter for screening for malignant neoplasm of colon; G47.33 Obstructive sleep apnea (adult) (pediatric); K21.9 Gastro-esophageal reflux disease without esophagitis; I10 Essential (primary) hypertension; J45.909 Unspecified asthma, uncomplicated; R06.02 Shortness of breath

== ENCOUNTER → 2024-07-16 11:21 | Outpatient (BNVA) | payer MEDICARE, SELFPAY | PROVIDERS: PCP Internal Medicine; Visit Provider Internal Medicine | DX: Z00.00 Encounter for general adult medical examination without abnormal findings (principal); Z23 Encounter for immunization; E66.01 Morbid (severe) obesity due to excess calories; R73.01 Impaired fasting glucose; G47.33 Obstructive sleep apnea (adult) (pediatric); K21.9 Gastro-esophageal reflux disease without esophagitis; I10 Essential (primary) hypertension; I73.9 Peripheral vascular disease, unspecified; J45.909 Unspecified asthma, uncomplicated; R06.02 Shortness of breath | CPT/HCPCS: 90471; 90656; 96127 ==

== ENCOUNTER 2024-10-23 13:25 | Outpatient (REF) | payer MEDICARE, SELFPAY ==
[2024-10-23 13:49] LABS: MANUAL DIFF FLAG NO
--- OUTSIDE RECORDS SUMMARY | 2024-10-23 14:34 | XMS_ITS | Encounter Summary ---
Author Organization [employer] [facility] Address [address] [place] [address] [address] [place] [address] Care Team Providers Care Site Physician Name Role Phone Unavailable Primary Care Provider Unavailabl e Encounter Details Date Type Department Care Team (Latest Contact Info) Description 10/31/2018 Abstract [facility] CONVERSIONS Dental, Provider, DDS Social History Tobacco Use Types Packs/Day Years Used Date Smoking Tobacco: Never Assessed Sex and Gender Information Value Date Recorded Sex Assigned at Male 07/12/2022 10:24 AM EDT Legal Sex Male 10:24 AM EDT Gender Identity Male 10/22/2022 8:04 AM EST Sexual Orientation Straight 11/17/2022 8: 45 PM EST documented as of this encounter Plan of Treatment Not on file documented as of this encounter Visit Diagnoses Not on filedocumented in this encounter
--- OUTSIDE RECORDS SUMMARY | 2024-10-23 14:34 | XMS_ITS | Clinical Summary ---
Author Organization [employer] Address [address] [place] [address] 7 [place] [address] Care Team Providers Care Pharmacist Critical Care Name Role Phone Unavailable Primary Care Provider Unavailabl e Allergies No known active allergies Medications acetaminophen (Tylenol) 325 MG tablet Take by mouth. Active calcium carbonate (Os-Harman) 1250 (500 Ca) MG tablet Active lisinopril 40 MG tablet Take 1 tablet by mouth at bed time. Active multivitamin (Theragran) tablet Active pantoprazole (ProtoNix) 40 MG EC tablet Take 1 tablet by mouth at bed time. Active traMADol (Ultram) 50 MG tablet Take by mouth. Active alpha tocopherol (Vitamin E) 400 units capsule Active Social History Tobacco Use Types Packs/Day Years Used Date Smoking Tobacco: Never Passive Smoke Exposure: Never Smokeless Tobacco: Never Tobacco Cessation:Counseling Given: Not Answered Alcohol Use Standard Drinks/Week Comments Never 0 (1 standard drink = 0.6 oz pur e alcohol) Sex and Gender Information Value Date Recorded Sex Assigned at Male 07/12/2022 10:24 AM EDT Legal Sex Male 10:24 AM EDT Gender Identity Male 10/22/2022 8:04 AM EST Sexual Orientation Straight 11/17/2022 8: 45 PM EST Last Filed Vital Signs Vital Sign Reading Time Taken Comments Blood Pressure 140/80 10/25/2022 10:05 AM EST Pulse 86 10/22/2022 8:58 AM EST Temperature - - Respiratory Rate - - Oxygen Saturation - - Inhaled Oxygen Concentration - - Weight - - Height - - Body Mass Index - - Plan of Treatment Health Maintenance Due Date Last Done Comments CT Colonography 1955 Colonoscopy 1955 Colorectal Cancer Screening 1955 Depression Screening 1955 FIT DNA/Cologuard 1955 FIT 1955 FOBT 1955 Lipid Panel 1955 SDOH Screening 1955 Sigmoidoscopy 1954 Alcohol/Substance Use Screening 1966 Hepatitis C Screening 1972 Zoster Vaccines (1 of 2) 2004 Dental Oral Exam 04/22/2023 10/22/2022 Dental Prophylaxis 04/22/2023 10/22/2022 Dental X-Ray: Bitewings 10/23/2023 10/22/2022 Tobacco Screening 03/25/2024 03/25/2023 COVID-19 Vaccine ( season) 2024 08/26/2022, 07/30/2021, 10/30/2020, Additional history exists Influenza Vaccine (#1) 2024 , 06/17/2021, 06/28/2019, Additional history exists Pneumococcal Vaccine: 50+ Years (3 of 3 - PCV20 or PCV21) 06/23/2025 06/23/2020, 06/29/2017 Dental X-Ray: Full Mouth 10/23/2025 10/22/2022 RSV Patients and Patients Aged 60 years or older (1 - 1-dose 75+ series) 2029 DTaP/Tdap/Td Vaccines (3 - Td or Tdap) 02/20/2033 02/20/2023, 09/03/2015 HIB Vaccines Aged Out No longer eligi ble based on patient's age to complete this topic HPV Vaccines Aged Out No longer eligi ble based on patient's age to complete this topic Hepatitis A Vaccines Aged Out No long er eligible based on patient's age to complete this topic Hepatitis B Vaccines Aged Out No long er eligible based on patient's age to complete this topic IPV Vaccines Aged Out No longer eligi ble based on patient's age to complete this topic Meningococcal Vaccine Aged Out No guido farhana eligible based on patient's age to complete this topic RSV under 20 months Aged Out No longe r eligible based on patient's age to complete this topic Rotavirus Vaccines Aged Out No longer eligible based on patient's age to complete this topic Procedures Procedure Name Priority Date/Time Associated Diagnosis Comments PERIODIC ORAL EVALUATION - ESTABLISHED PATIENT Routine 10/22/2022 10:00 AM EST PROPHYLAXIS - ADULT Routine 10/22/2022 9 :00 AM EST DIAGNOSTIC - DIAGNOSTIC IMAGING - INTRAORAL - COMPREHENSIVE SERIES OF RADIOGRAPHIC IMAGES Routine 10/22/2022 9:00 AM EST from Last 3 Months or Most Recently Relevant to Health Maintenance Insurance DENTAL - [employer]
--- OUTSIDE RECORDS SUMMARY | 2024-10-23 14:34 | XMS_ITS | Encounter Summary ---
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
[2024-10-23 15:28] LABS: Appearance Urine Clear; Color Urine Yellow; Glucose Urine UA Negative (Negative); Leukocyte Esterase Urine Negative (Negative); Nitrite Urine Negative (Negative); Specific Gravity - Urine 1.015 (1.005-1.025); UMIC TRIGGER UA YES; Urine Blood Negative (Negative); Urine Ketones Negative (Negative); Urine Protein 30 (1+) mg/dL (Neg-Trace)
[2024-10-23 15:29] LABS: Basophils Absolute Auto 0.1 X10*3/uL (0.0-0.2); Basophils Percent Auto 0.7 % (0-2); Eosinophils Absolute Auto 0.3 X10*3/uL (0.0-0.4); Eosinophils Percent Auto 3.2 % (0-4); Hematocrit 42.5 % (42.0-52.0); Hemoglobin 13.6 g/dl (14.0-18.0); Imm Gran Abs Auto 0.05 X10*3/uL (0.00-0.03); Imm Gran Pct Auto 0.5 % (0.0-0.4); Immature Retic Fraction 14.9 % (2.3-13.4); Lymphocytes Absolute Auto 2.8 X10*3/uL (1.2-4.9); Lymphocytes Percent Auto 29.2 % (20-40); Mean Corpuscular Hemoglobin 28.9 pg (27.0-33.0); Mean Corpuscular Volume 90.4 fL (80.0-98.0); Mean Platelet Volume 11.1 fL (9.4-12.4); Monocytes Absolute Auto 0.6 X10*3/uL (0.1-1.2); Neutrophils Absolute Auto 5.9 x10*3/uL (2.0-8.3); Neutrophils Percent Auto 60.4 % (45-73); Platelet Count 249 X10*3/uL (160-400); Red Cell Distribution Width 13.4 % (11.0-16.0); Retic HGB Equivalent 33.9 pg (30.0-35.0); Reticulocyte Percent 1.8 % (0.5-1.8); Reticulocytes Absolute 0.084 X10*6/uL (0.026-0.095); White Blood Count 9.7 X10*3/uL (4.8-10.8)
[2024-10-23 15:35] LABS: Bacteria Urine None Seen (None Seen); Hyaline Casts Urine 0-2 /LPF (0-2); RBC Urine 0-2 /HPF (0-2); Squamous Epithelial Cell Urine 0-2 /HPF (0-2); WBC Urine 0-5 /HPF (0-5)
[2024-10-23 16:12] LABS: Estimated Average Glucose 126 mg/dL; Hemoglobin A1C 150.1582 umol/L; Total Hemoglobin (HGBA1C) 3572.4888 umol/L
[2024-10-23 16:25] LABS: Folate 15.2 ng/mL (> or = 4.0); Prostate Specific Antigen Scr 1.11 ng/mL (<0.05-4.0); Vitamin B12 430 pg/mL (200-900)
[2024-10-23 17:57] LABS: Alanine Aminotransferase 31 U/L (0-40); Albumin Level 3.8 g/dL (3.5-5.0); Alkaline Phosphatase 78 U/L (39-117); Anion Gap 11 (12-20); Aspartate Amino Transferase 27 U/L (5-37); Bilirubin Total 0.9 mg/dL (0.0-1.0); Blood Urea Nitrogen 26 mg/dL (9-16); Calcium 9.1 mg/dL (8.4-10.2); Carbon Dioxide 28 mmol/L (22-29); Chloride 107 mmol/L (96-108); Cholesterol 141 mg/dL (<200); Estimated Glomerular Filt Rate > 60; Glucose Random 88 mg/dL (60-115); HDL Cholesterol 33 mg/dL (>40); Iron 62 mcg/dL (45-160); LDL Cholesterol Calculated 87 mg/dL (<100); Percent Iron Saturation 24 % (15-50); Potassium 4.6 mmol/L (3.3-5.1); Sodium 141 mmol/L (135-145); Total Iron Binding Capacity 257 mcg/dL (228-428); Total Protein 7.3 g/dL (6.5-8.0); Triglycerides 109 mg/dL (<150); Unsaturated Iron Binding 195 ug/dL
[2024-10-23 18:18] LABS: Ferritin 168 ng/mL (20-250); Thyroid Stimulating Hormone 2.23 uIU/mL (0.32-4.0)
== END 2024-10-23 13:26 | disposition home or self-care (01) ==
LOC: HO.LAB 13:25
PROVIDERS: PCP Internal Medicine; Visit Provider Internal Medicine
DX: R73.01 Impaired fasting glucose (principal); I10 Essential (primary) hypertension; E78.00 Pure hypercholesterolemia, unspecified; Z12.5 Encounter for screening for malignant neoplasm of prostate
CPT/HCPCS: 36415; 80053; 80061; 81001; 82607; 82728; 82746; 83036; 83540; 84153; 84439; 84443; 85025; 85045

== ENCOUNTER 2024-11-02 08:17 | Outpatient (AMB) | payer MEDICARE, SELFPAY ==
--- OUTSIDE RECORDS SUMMARY | 2024-11-02 08:21 | XMS_ITS | Encounter Summary ---
Author Organization [employer] [facility] Address [address] [place] [address] [address] [place] [address] Care Team Providers Care Control Clerk Name Role Phone Unavailable Primary Care Provider Unavailabl e Encounter Details Date Type Department Care Team (Latest Contact Info) Description 10/31/2018 Abstract [facility] CONVERSIONS Dental, Provider, DDS Social History Tobacco [...]
--- OUTSIDE RECORDS SUMMARY | 2024-11-02 08:21 | XMS_ITS ---
Author Organization [facility] Address [address] [place] [address] Care Team Providers Care Patient Support Assistant Name Role Phone Delaney Marrero Primary Care Provider Eliceo Loving Unavailable [phone] Allergies No Known Allergies REASON FOR VISIT At Risk Footcare, Painful Nail(s) aggrevated by shoes and causing difficulty standing/walking., Skin problem(s), Possible Infection Medications Medication SIG (Take, Route, Frequency, Duration) Notes Start Date End Date Status Metoprolol Succinate ER 100 MG 1 tablet Orally Once a day Active Meloxicam 15 MG 1 tablet Orally Once a day Active hydroCHLOROthiazide 25 MG 1 tablet in th e morning Orally Once a day Active Lisinopril 40 MG 1 tablet Orally Once a day Not-Taking Ammonium Lactate 12 % 1 application Externally Twice a day for 30 days Active traMADol HCl 50 MG 1 tablet as needed Orally Once a day Active Pantoprazole Sodium 40 MG 1 tablet Orall y Once a day Active Social History Tobacco Use: Social History Observation Description Date Details (start date - stop date) Never Smoker NA - NA Tobacco Use/Smoking Question Answer Notes Are you a: nonsmoker Additional Findings: Tobacco Non-User Current no n-smoker Alcohol Screen Question Answer Notes Did you have a drink containing alcohol in the p ast year? No Points 0 Interpretation Negative Tobacco use other than smoking: Question Answer Notes Are you an other tobacco user? No Vital Signs Height 6ft 1in in 03/27/2024 Weight 375 lbs 03/27/2024 BMI 49.47 kg/m2 03/27/2024 Procedures Procedure Date Ordered Date Performed Result Body Sit e 02629-XAMBFAX NAIL, 6 OR MORE 03/27/2024 N/A 22961 I&D ABSCESS- SIMPLE,SINGLE 03/27/2024 N/A 76952-YEHB SKIN LESIONS, OVER 4 03/27/2024 N/A Encounters Encounter Location Date Provider Diagnosis [facility] [address] [place] [address] 03/27/2024 Eliceo Del Castillo Atherosclerosis of capitan grande artery of both lower extremities, with unspecified presence of clinical manifestation I70.203 ; Tinea unguium B35.1 ; Pain in right toe(s) M79.674 ; Pain in left toe(s) M79.675 ; Left foot pain M79.672 ; Xerosis of skin L85.3 and Abscess of toe, right L02.611 Assessments Encounter Date Diagnosis (ICD Code) Assessment Notes Treatment Notes Treatment Clinical Notes Section Notes 03/27/2024 Atherosclerosis of capitan grande artery of both lower extremities, with unspecified presence of clinical manifestation (ICD-10 - I70.203) 03/27/2024 Tinea unguium (ICD-10 - B35.1) 03/27/2024 Pain in right toe(s) (ICD-10 - M79.674) 03/27/2024 Pain in left toe(s) (ICD-10 - M79.675) 03/27/2024 Left foot pain (ICD-10 - M79.672) 03/27/2024 Xerosis of skin (ICD-10 - L85.3) 03/27/2024 Abscess of toe, right (ICD-10 - L02.611) Patient Educated with: WOUND CARE INSTRUCTIONS. pdf (WOUND CARE INSTRUCTIONS. pdf) 03/27/2024 Other Plan Of Treatment Treatment Notes Assessment Notes Abscess of toe, right Patient Educated w ith: WOUND CARE INSTRUCTIONS.pdf (WOUND CARE INSTRUCTIONS.pdf) Pending Test Test Name Order Date [id number]-SYCYRFY NAIL, 6 OR MORE 03/27/2024 61007 I&D ABSCESS- SIMPLE,SINGLE 024 74521-UHFI SKIN LESIONS, OVER 4 03/27/20 24 Next Appt Details Follow Up: prn, Reason: Provider Name:Eliceo Del Castillo , 12/25/2024 11:15:00 AM, [address] [place], [address], Procedure Notes * Category Sub-Category Detail Notes Debride Nail 6-10 Nail debridement Nail debridem ent performed extensively to reduce/remove overall nail length, girth, thickness, subungual debris, and necrotic tissue, by manual and electrical means through the use of a nail nipper and/or dremel, to more viable healthy nail plate or bed tissue 1-5. Silver nitrate used for any petechial bleeding as necessary. Patient chooses, no pharmaceutical tx (06095) I&D nail abscess Location T5 , As per exa m Procedure Performed incision a nd drainage of Subungual Abscess. Incised and Drained involved toenail with sterile nipper and curettaged infected devitalized tissue to healthy bleeding bed. Approximately 0.1cc purulent fluid material was drained. Any granuloma present was removed at this time. No underlying bone was visualized. There was minimal bleeding as hemostasis was achieved through the temporary use of either a digital tournaquet or the aforementioned local with epinephrine. Application of sterile Bacitracin dressing performed. Local wound care instructions discussed and dispensed. Recommended Tylenol or Motrin for pain/discomfort (55598) , CIRCULATION: Pt was advised as to the risk of delayed or nonhealing due to circulation. Pt is to call the office with any questions, concerns, or complications Type Subungual abscess Anesthesia was deferred - PT AB SOLUTELY REFUSES - tolerant to pain without issue/complication Keratoma Treatment Parring or Cutting o f Benign Hyperkeratotic Lesion(s) 57920 ( More than 4 Lesions ) - The Benign hyperkeratotic lesions, as described above were pared, and/or cut utilizing a sterile 15 blade, tissue nippers, and/or dremel , Q8 Progress Notes * Yfn BYNUMDOB:1955 (69 yo M)Acc No.[id number]:03/27/2024 Progress Note Patient:?Yfn BYNUM Provider:Patrick Del Castillo DPM :1955???Age:68 Y???Sex:Male Juan Carlos e:03/27/2024 Address:[address] [address], [place] , [facility] Pcp:Delaney Marrero Subjective: * Chief Complaints: * ???At Risk FootcarePainful N ail(s) aggrevated by shoes and causing difficulty standing/walking.Skin problem(s)Possible Infection * HPI: ???At Risk footcare:?Pt States Last PCP Visit:?Date?12/12/2023 ???Skin problems:?Treatments:?medication ( AM Lactin ) , states adherence to recommended treatment application.? * ROS:?General/Constitutional:?Nausea?denies.?Vomiting?denies.?Hunger Thirst?denies.?Loss appetite?denies.?Chills?denies.?Fatigue?denies.?Fever?denies.?Night Sweats?denies.?Unexplained weight loss?denies.?Unexplained weight gain?denies.?HEENTM:?Dentures?admits.?Dizziness?denies.?Glasses/contacts?denies.?Retinopathy?de nies.?Blurred/double vision?denies.?TMJ?denies.?Discharge/drainage?denies.?Implants?denies.?Sore throat?denies.?Dental implants?denies.?Hard of hearing ?denies.?Difficulty chewing/swallowing/speaking?denies.?Nose bleeds?denies.?Sore mouth?denies.?Respiratory:?On Oxygen?denies.?Pneumonia/pleurisy?denies.?Bronchitis?denies.?Emphysema?denies.?C oughing?denies.?Cough blood?denies.?Shortness of breath?admits.?Wheezing?denies.?Cardiovascular:?Pacemaker?denies.?MVP?denies.?WPW?denies.?CHF?denies.?Heart attack?denies.?Septal defect?denies.?Rapid beat?denies.?Chest pain ?denies.?Atrial Fib.?denies.?Murmur/Palpitations?denies.?Gastrointestinal:?Hemorrhoids?denies.?Stomach/Abdominal pain?denies.?Dark blood stool?denies.?Irritable bowel ?denies.?Constipation?denies.?Diarrhea?denies.?Hematology:?Swelling?admits.?Clots?denies.?Varicose Veins?admits.?Bruising?denies.?Bleeding problem?denies.?Genitourinary:?Blood urine?denies.?Frequent/Painfu/urination/bladder control?denies.?Kidney stones?denies.?Infection (UTI)?denies.?Nephropathy?denies.?sex trans dis (STD)?denies.?Prostate?denies.?Musculoskeletal:?Hammertoes?admits.?Bunions?denies.?Back Pain?denies.?Muscle Cramps/ Resting?denies.?Muscle cramps / walking?denies.?Generalized aches and pains?denies.?Weakness?denies.?Integ.:?[place]ghee?denies.?Scars?denies.?Corns/calluses?admits.?Ingrown nails?admits.?Painful nails?admits.?Open Sores?denies.?Rashes?denies.?Neurologic:?Difficulty sleeping?denies.?Brain disorder?denies.?Numbness?denies.?Balance trouble?denies.?Confusion?denies.?Fainting/blackouts?denies.?Tingling?denies.?Tr emors?denies.? * Medical History:? * Surgical History:?Triple Art hrodesis, Left 1980s * Hospitalization/Major Diagno stic Procedure:?Denies Past Hospitalization * Family History:?Mother: abdullahi gonsalves.?Father: .? * Social History:?Tobacco Use:?Tobacco Use/Smoking?Are you a:?nonsmoker ?Additional Findings: Tobacco Non-User?Current non-smoker ?Tobacco use other than smoking?Are you an other tobacco user??No ???Drugs/Alcohol:?Drugs?Have you used drugs other than those for medical reasons in the past 12 months??No ?Alcohol Screen?Did you have a drink containing alcohol in the past year??No ?Points?0 ?Interpretation?Negative ???Miscellaneous:?Caffeine: no. ?Exercise: no. ?Marital status: . ?Occupation: [employer] - [employer]. * Medications:?TakingtraMADol HCl 50 MG Tablet 1 tablet as needed Orally Once a day Pantoprazole Sodium 40 MG Tablet Delayed Release 1 tablet Orally Once a day Meloxicam 15 MG Tablet 1 tablet Orally Once a day hydroCHLOROthiazide 25 MG Tablet 1 tablet in the morning Orally Once a day Metoprolol Succinate ER 100 MG Tablet Extended Release 24 Hour 1 tablet Orally Once a day Ammonium Lactate 12 % Cream 1 application Externally Twice a day Taking traMADol HCl 50 MG Tablet 1 tablet as needed Orally Once a day Taking Pantoprazole Sodium 40 MG Tablet Delayed Release 1 tablet Orally Once a day Taking Meloxicam 15 MG Tablet 1 tablet Orally Once a day Taking hydroCHLOROthiazide 25 MG Tablet 1 tablet in the morning Orally Once a day Taking Metoprolol Succinate ER 100 MG Tablet Extended Release 24 Hour 1 tablet Orally Once a day Taking Ammonium Lactate 12 % Cream 1 application Externally Twice a day Not-Taking/PRNLisinopril 40 MG Tablet 1 tablet Orally Once a day Medication List reviewed and reconciled with the patientNot-Taking/PRN Lisinopril 40 MG Tablet 1 tablet Orally Once a day Medication List reviewed and reconciled with the patient * Allergies:?N.K.D.A.yes[Aller gies Verified] Objective: * Vitals:?Ht: 6ft 1in, Wt:375, BMI:49.47, Shoe size:16. * Examination: ???Vascular: ?DP PULSES (B):?1/4, B/L.?PT PULSES (B):? 0/4, B/L.?CAPILLARY FILL TIME:? delayed, all digits, B/L.?TROPHIC CONDITION-TEXTURE/ELASTICITY/TURGOR/HAIR GROWTH (B):? decreased, B/L.?TEMPERTURE GRADIENT (C):? decreased, cool to cool, proximal to distal, B/L.?PIGMENTATION:?brawny, B/L.?EDEMA (C):?4/4 , non-pitting , without aching pain , Leg(s) , Ankle(s) , Foot.?CLAUDICATION (C):?denies, B/L.?REST PAIN:?denies, B/L.?Nails: ?NAILS are:? Elongated, overgrown, dystrophic, lytic, greater than 3mm thick, discolored and friable with crumbly malodorous subungual debris, with pain on palpation, TA, T1, T2, T4, T5, T6, T9, remaining nails are elongated, overgrown, dystrophic.?Abscess/infected nail: ?INSPECTION?Reveals Subungual Abscess with nail fluctuance, mild localized erythema, and yellow purulent fluid with pre-operative size approximately ( 1-2 ) mm square, but without exposed bone , T5.?Dermatologic: ?SKIN FINDINGS:?Skin exam reveals Keratotic lesion(s) located at , Medial , IPJ , TA , Medial , IPJ , T5 , Plantar , T2 , SUB MTH (s) , 1 , B/L , SUB MTH (s), 5, Left, Heel(s) , B/L , Skin shows approximately 90% LESS, sign(s) of, dryness, scaling, in a stocking fashion, no fissure(s) present, B/L.?VERRUCA:?NOW, NO FURTHER SIGN of mosaic papule(s) with skin lines now evident and visible, plantar Forefoot , LEFT.? Assessment: * Assessment: 1.?Tinea unguium - B35.1???2 .?Atherosclerosis of capitan grande artery of both lower extremities, with unspecified presence of clinical manifestation - I70.203???3.?Pain in right toe(s) - M79.674???4.?Pain in left toe(s) - M79.675?? 5.?Left foot pain - M79.672???6.?Xerosis of skin - L85.3???Specify :Acute problem, Stable (1=3),Response to treatment - Improvement???7.?Abscess of toe, right - L02.611??? Plan: * Treatment: 2.?Atherosclerosis of capitan grande artery of both lower extremities, with unspecified presence of clinical manifestation?Procedure: 46714-[id number] SKIN LESIONS, OVER 4 3.?Abscess of toe, right?Procedure: 57847 I&D ABSCESS- SIMPLE,SINGLE Notes: Patient Educated with: WOUND CARE INSTRUCTIONS.pdf (WOUND CARE INSTRUCTIONS.pdf)?? * Procedures:?Debride Nail 6-10:?Nail debridement?Nail debridement performed extensively to reduce/remove overall nail length, girth, thickness, subungual debris, and necrotic tissue, by manual and electrical means through the use of a nail nipper and/or dremel, to more viable healthy nail plate or bed tissue 1-5. Silver nitrate used for any petechial bleeding as necessary. Patient chooses, no pharmaceutical tx (44197).?I&D nail abscess:?Type?Subungual abscess.?Anesthesia?was deferred - PT ABSOLUTELY REFUSES - tolerant to pain without issue/complication.?Location?T5 , As per exam.?Procedure?Performed incision and drainage of Subungual Abscess. Incised and Drained involved toenail with sterile nipper and curettaged infected devitalized tissue to healthy bleeding bed. Approximately 0.1cc purulent fluid material was drained. Any granuloma present was removed at this time. No underlying bone was visualized. There was minimal bleeding as hemostasis was achieved through the temporary use of either a digital tournaquet or the aforementioned local with epinephrine. Application of sterile Bacitracin dressing performed. Local wound care instructions discussed and dispensed. Recommended Tylenol or Motrin for pain/discomfort (48987) , CIRCULATION: Pt was advised as to the risk of delayed or nonhealing due to circulation. Pt is to call the office with any questions, concerns, or complications.?Keratoma Treatment:?Parring or Cutting of Benign Hyperkeratotic Lesion(s)?15451 ( More than 4 Lesions ) - The Benign hyperkeratotic lesions, as described above were pared, and/or cut utilizing a sterile 15 blade, tissue nippers, and/or dremel , Q8.? * Procedure Codes:?76087 DRAIN AGE OF SKIN ABSCESS, Modifiers: XS , [id number] DEBRIDE NAIL, 6 OR MORE, Modifiers: XS 44383 TRIM SKIN LESIONS, OVER 4, Modifiers: XS , Q8 * Preventive Medicine:? ??Counseling:?Discussion:?-12: Office or other outpatient visit for the evaluation and management of an established patient, which required a medically appropriate history and/or examination and STRAIGHTFORWARD level of MEDICAL DECISION MAKING, 1 SELF-LIMITED OR MINOR PROBLEM, MINIMAL- NO AMOUNT/COMPLEXITY OF DATA TO BE REVIEWED/ANALYZED, AND MINIMAL RISK OF COMPLICATION/MORBIDITY. The visit on the day of the encounter encompassed interpreting the data and educating the patient as to the nature of their condition, treatment options available according to their individual PMH, meds, allergies, and overall health/living conditions, as well as any potential risks or complications that may occur from a failure to adhere to, and participate in, the recommended course of therapy. The discussion included a complete verbal, and/or written explanation of the examination results, any x-rays taken, the proposed diagnosis, and outline of the treatment plan. A schedule for future care needs was also explained. The patient verbalized an understanding of the instructions at this time and agreed to be an active participant in their treatment. If the patient should think of any questions or concerns after the visit, I have encouraged the patient to call the office.?Xerosis:?Given recent successful results to treatment, The patient is to cont the rx cream as directed.? ??Screening/Special Tests:?Fall Risk?Screening:?No falls in the past year ?FALLS: Screening for Future Fall Risk?Have you had any falls with injury in the past year??No * Follow Up:?prn * Images: * Sign off status: Completed Addendum: * ? true * Provider:?Eliceo Del Castillo DPM Date:?2023 Generated for Pop michaels/Monique/Lucero on:?11/02/2024 08:21 AM EST History and Physical Notes * HPI (History of Present Illness) Category Sub-Category Detail Notes Category Not es Skin problems Treatments: medication ( AM Lactin ) , states adherence to recommended treatment application At Risk footcare Pt States Last PCP Visit: Date: 12/12/2023 Examination Category Sub-Category Detail Notes Category Not es Dermatologic SKIN FINDINGS: Skin exam reveal s Keratotic lesion(s) located at , Medial , IPJ , TA , Medial , IPJ , T5 , Plantar , T2 , SUB MTH (s) , 1 , B/L , SUB MTH (s), 5, Left, Heel(s) , B/L , Skin shows approximately 90% LESS, sign(s) of, dryness, scaling, in a stocking fashion, no fissure(s) present, B/L VERRUCA: NOW, NO FURTHER SIGN of mosaic papule(s) with skin lines now evident and visible, plantar Forefoot , LEFT Vascular DP PULSES (B): 1/4, B/L PT PULSES (B): 0/4, B/L CAPILLARY FILL TIME: delayed, all digits , B/L TEMPERTURE GRADIENT (C): decreased, cool to cool, proximal to distal, B/L TROPHIC CONDITION-TEXTURE/ELASTICITY/TURGOR/HAIR GROWTH (B): decreased, B/L EDEMA (C): 4/4 , non-pitting , without aching pain , Leg(s) , Ankle(s) , Foot CLAUDICATION (C): denies, B/L REST PAIN: denies, B/L PIGMENTATION: brawny, B/L Nails NAILS are: Elongated, overg rown, dystrophic, lytic, greater than 3mm thick, discolored and friable with crumbly malodorous subungual debris, with pain on palpation, TA, T1, T2, T4, T5, T6, T9, remaining nails are elongated, overgrown, dystrophic Abscess/infected nail INSPECTION Reveals Miguel bungual Abscess with nail fluctuance, mild localized erythema, and yellow purulent fluid with pre-operative size approximately ( 1-2 ) mm square, but without exposed bone , T5
--- OUTSIDE RECORDS SUMMARY | 2024-11-02 08:21 | XMS_ITS ---
Author Organization [facility] Address [address] [facility] [place] [address] Care Team Providers Care High [employer] Principal Name Role Phone Delaney Marrero Primary Care Provider Eliceo Loving Unavailable [phone] Allergies No Known Allergies REASON FOR VISIT At Risk Footcare, Painful Nail(s) aggravated by shoes and causing difficulty standing/walking. Medications Medication SIG (Take, Route, Frequency, Duration) Notes Start Date End Date Status Lisinopril 40 MG 1 tablet Orally Once a day Not-Taking Ammonium Lactate 12 % 1 application Externally Twice a day for 30 days Active Metoprolol Succinate ER 100 MG 1 tablet Orally Once a day Active hydroCHLOROthiazide 25 MG 1 tablet in th e morning Orally Once a day Active Meloxicam 15 MG 1 tablet Orally Once a day Active traMADol HCl 100 MG 1 tablet as needed Orally Once [...] tobacco user? No Vital Signs Height 6ft in 06/26/2024 Weight 375 lbs 06/26/2024 BMI 50.85 kg/m2 06/26/2024 Procedures Procedure Date Ordered Date Performed Result Body Sit e 62533-CZOXJET NAIL, 6 OR MORE 06/26/2024 N/A 24254-UMHX SKIN LESIONS, OVER 4 06/26/2024 N/A Encounters Encounter Location Date Provider Diagnosis [facility] [address] [address] 06/26/2024 Eliceo Del Castillo Atherosclerosis of capitan grande artery of both lower extremities, with unspecified presence of clinical manifestation I70.203 ; Tinea unguium B35.1 ; Pain in right toe(s) M79.674 and Pain in left toe(s) M79.675 Assessments Encounter Date Diagnosis (ICD Code) Assessment Notes Treatment Notes Treatment Clinical Notes Section Notes 06/26/2024 Atherosclerosis of capitan grande artery of both lower extremities, with unspecified presence of clinical manifestation (ICD-10 - I70.203) Q7(A), Q8(2B), Q9(1B,2C) 06/26/2024 Tinea unguium (ICD-10 - B35.1) 06/26/2024 Pain in right toe(s) (ICD-10 - M79.674) 06/26/2024 Pain in left toe(s) (ICD-10 - M79.675) Plan Of Treatment Pending Test Test Name Order Date 44965-IJTTJBP NAIL, 6 OR MORE 06/26/2024 19451-XRYM SKIN LESIONS, OVER 4 06/26/20 24 Next Appt Details Follow Up: prn, Reason: Provider Name:Eliceo Del Castillo , 12/25/2024 11:15:00 AM, [address] [place] [address], [phone], Procedure Notes * Category Sub-Category Detail Notes Debride Nail 6-10 Nail debridement Performance o f this nail treatment by a nonprofessional would put this patients foot and overall health at risk. Therefore, nail debridement was performed extensively to reduce/remove overall nail length, girth, thickness, subungual debris, and necrotic tissue, by manual and/or electrical means through the use of a nail nipper and/or dremel-type industrial coffee grinder, to a more viable healthy nail plate or bed tissue 6-10. Silver nitrate used for any petechial bleeding as necessary. Definitive antifungal treatment options have been reviewed and discussed with the patient. The patient chooses, no pharmaceutical tx - 48000 Keratoma Treatment Parring or Cutting o f Benign Hyperkeratotic Lesion(s) (-57) More than 4 Lesions - The Benign hyperkeratotic lesions, as described above were pared, and/or cut utilizing a sterile 15 blade, tissue nippers, and/or dremel - 42228 , Q8 Progress Notes * Yfn BYNUMDOB:1955 (68 yo M)Acc No.[id number]:06/26/2024 Progress Note Patient:?Yfn Bynum Provider:?Eliceo Del Castillo DPM :1955???Age:68 Y???Sex:Male Juan Carlos e:06/26/2024 Address:[place] [address], [id number] Pcp:Delaney Marrero Subjective: * Chief Complaints: * ???At Risk FootcarePainful N ail(s) aggravated by shoes and causing difficulty standing/walking. * HPI: ???At Risk footcare:?Pt States Last PCP Visit:?Date?12/12/2023 * ROS:?General/Constitutional:?Nausea?denies.?Vomiting?denies.?Hunger Thirst?denies.?Loss appetite?denies.?Chills?denies.?Fatigue?denies.?Fever?denies.?Night Sweats?denies.?Unexplained weight loss?denies.?Unexplained [...] in the past year??No ?Points?0 ?Interpretation?Negative ???Miscellaneous:?Caffeine: yes, frequency:, 1-2 cups per day. ?Children: yes, 2. ?no Exercise. ?Marital status: . 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 * Medications:?TakingtraMADol HCl 100 MG Tablet 1 tablet as needed Orally Once a dayPantoprazole Sodium 40 MG Tablet Delayed Release 1 tablet Orally Once a dayMeloxicam 15 MG Tablet 1 tablet Orally Once a dayhydroCHLOROthiazide 25 MG Tablet 1 tablet in the morning Orally Once a dayMetoprolol Succinate ER 100 MG Tablet Extended Release 24 Hour 1 tablet Orally Once a dayAmmonium Lactate 12 % Cream 1 application Externally Twice a dayTaking traMADol HCl 100 MG Tablet 1 tablet as needed Orally Once a dayTaking Pantoprazole Sodium 40 MG Tablet Delayed Release 1 tablet Orally Once a dayTaking Meloxicam 15 MG Tablet 1 tablet Orally Once a dayTaking hydroCHLOROthiazide 25 MG Tablet 1 tablet in the morning Orally Once a dayTaking Metoprolol Succinate ER 100 MG Tablet Extended Release 24 Hour 1 tablet Orally Once a dayTaking Ammonium Lactate 12 % Cream 1 application Externally Twice a dayNot-Taking/PRNLisinopril 40 MG Tablet 1 tablet Orally Once a dayMedication List reviewed and reconciled with the patientNot-Taking/PRN Lisinopril 40 MG Tablet 1 tablet Orally Once a dayMedication List reviewed and reconciled with the patient * Allergies:?N.K.D.A.yes[Aller gies Verified] Objective: * Vitals:?Ht: 6ft, Wt:375, BMI :50.85, Shoe size: 16, Ht-cm: 182.88 cm, Wt-k.1 kg. * Examination: ???Vascular: ?DP PULSES(B):?1/4, B/L.?PT PULSES(B):? 0/4, B/L.?CAPILLARY FILL TIME:? delayed, all digits, B/L.?TROPHIC CONDITION-TEXTURE/ELASTICITY/TURGOR/HAIR GROWTH(B):? decreased, with sparse to absent hair growth, B/L.?TEMPERTURE GRADIENT(C):? decreased, cool to cool, proximal to distal, B/L.?PIGMENTATION:?brawny, B/L.?EDEMA(C):?4/4 , non-pitting , without aching pain , Leg(s) , Ankle(s) , Foot.?CLAUDICATION(C):?denies, B/L.?REST PAIN:?denies, B/L.?Nails: ?NAILS are:? Elongated, overgrown, dystrophic, lytic, greater than 3mm thick, discolored and friable with crumbly malodorous subungual debris, with pain on palpation, TA, T1, T2, T4, T5, T6, T9, remaining nails are elongated, overgrown, dystrophic.?Dermatologic: ?SKIN FINDINGS:?Skin exam reveals Keratotic lesion(s) located at , Medial , IPJ , TA , Medial , IPJ , T5 , Plantar , T2 , SUB MTH (s) , 1 , B/L , SUB MTH (s), 5, Left, Heel(s) , B/L.? Assessment: * Assessment: 1.?Tinea unguium - B35.1?2.? Atherosclerosis of capitan grande artery of both lower extremities, with unspecified presence of clinical manifestation - I70.203, Q7(A), Q8(2B), Q9(1B,2C)?3.?Pain in right toe(s) - M79.674?4.?Pain in left toe(s) - M79.675? Plan: * Treatment: 2.?Atherosclerosis of capitan grande artery of both lower extremities, with unspecified presence of clinical manifestation?Procedure: 11699-LDRX SKIN LESIONS, OVER 4 * Procedures:?Debride Nail 6-10:?Nail debridement?Performance of this nail treatment by a nonprofessional would put this patients foot and overall health at risk. Therefore, nail debridement was performed extensively to reduce/remove overall nail length, girth, thickness, subungual debris, and necrotic tissue, by manual and/or electrical means through the use of a nail nipper and/or dremel-type industrial coffee grinder, to a more viable healthy nail plate or bed tissue 6-10. Silver nitrate used for any petechial bleeding as necessary. Definitive antifungal treatment options have been reviewed and discussed with the patient. The patient chooses, no pharmaceutical tx - 89317.?Keratoma Treatment:?Parring or Cutting of Benign Hyperkeratotic Lesion(s)?(-57) More than 4 Lesions - The Benign hyperkeratotic lesions, as described above were pared, and/or cut utilizing a sterile 15 blade, tissue nippers, and/or dremel - 41117 , Q8.? * Procedure Codes:?24003 DEBRI DE NAIL, 6 OR MORE, Modifiers: XS 98535 TRIM SKIN LESIONS, OVER 4, Modifiers: XS , Q8 * Follow Up:?prn * Images: * Sign off status: Completed true * Provider:Patrick Del Castillo DPM Date:?2023 Generated for Pop michaels/Monique/Lucero on:?11/02/2024 08:21 AM EST History and Physical Notes * HPI (History of Present Illness) Category Sub-Category Detail Notes Category Not es At Risk footcare Pt States Last PCP Visit: Date: 4 Examination Category Sub-Category Detail Notes Category Not es Dermatologic SKIN FINDINGS: Skin exam reveal s Keratotic lesion(s) located at , Medial , IPJ , TA , Medial , IPJ , T5 , Plantar , T2 , SUB MTH (s) , 1 , B/L , SUB MTH (s), 5, Left, Heel(s) , B/L VERRUCA: Vascular DP PULSES (B): 1/4, B/L PT PULSES (B): 0/4, B/L CAPILLARY FILL TIME: delayed, all digits , B/L TEMPERTURE GRADIENT (C): decreased, cool to cool, proximal to distal, B/L TROPHIC CONDITION-TEXTURE/ELASTICITY/TURGOR/HAIR GROWTH (B): decreased, with sparse to absent hair gr owth, B/L EDEMA (C): 4/4 , non-pitting , [...]
--- OUTSIDE RECORDS SUMMARY | 2024-11-02 08:21 | XMS_ITS | Encounter Summary ---
Author Organization [employer] [facility] Address [address] [place] [address] 7 [place] [address] Care Team Providers Care Auto Inspector Name Role Phone Unavailable Primary Care Provider Unavailabl e Encounter Details Date Type Department Care Team (Latest Contact Info) Description 11/20/2019 Abstract [facility] CONVERSIONS Dental, Provider, DDS Social History [...]
--- OUTSIDE RECORDS SUMMARY | 2024-11-02 08:22 | XMS_ITS ---
Author Organization [facility] Address [address] [facility] [place] [address] Care Team Providers Care Radiology Teacher Name Role Phone Delaney Marrero Primary Care Provider Eliceo Loving Unavailable [phone] Allergies No Known Allergies REASON FOR VISIT At Risk Footcare, Painful Nail(s) aggravated by shoes and causing difficulty standing/walking. Medications Medication SIG (Take, Route, Frequency, Duration) Notes Start Date End Date Status Meloxicam 15 MG 1 tablet Orally Once a day Active Metoprolol Succinate ER 100 MG 1 tablet Orally Once a day Active hydroCHLOROthiazide 25 MG 1 tablet in th e morning Orally Once a day Active Ammonium Lactate 12 % 1 application Externally Twice a day for 30 days Active Lisinopril 40 MG 1 tablet Orally Once a day Not-Taking Pantoprazole Sodium 40 MG 1 tablet Orall y Once a day Active traMADol HCl 100 MG 1 tablet as needed Orally Once a day Active Social History Tobacco Use: Social History Observation Description Date Details (start date - stop date) Never Smoker NA - NA Alcohol Screen Question Answer Notes Did you have a drink containing alcohol in the p ast year? No Points 0 Interpretation Negative Tobacco use other than smoking: Question Answer Notes Are you an other tobacco user? No Tobacco Control (Standard) Question Answer Notes Tobacco use: Nonsmoker Additional Findings: Tobacco non-user Current no nsmoker Vital Signs Height 6ft in 09/25/2024 Weight 375 lbs 09/25/2024 BMI 50.85 kg/m2 09/25/2024 Blood pressure systolic 140 mm Hg 09/25/19 25 Blood pressure diastolic 70 mm Hg 025 Procedures Procedure Date Ordered Date Performed Result Body Sit e 03306-RQPSVSD NAIL, 6 OR MORE 09/25/2024 N/A 18445-IBZU SKIN LESIONS, OVER 4 09/25/2024 N/A Encounters Encounter Location Date Provider Diagnosis [facility] [address] [address] 09/25/2024 Eliceo Kerrunier Atherosclerosis of seminole artery of both lower extremities, with unspecified presence of clinical manifestation I70.203 ; Tinea unguium B35.1 ; Pain in right toe(s) M79.674 and Pain in left toe(s) M79.675 Assessments Encounter Date Diagnosis (ICD Code) Assessment Notes Treatment Notes Treatment Clinical Notes Section Notes 09/25/2024 Atherosclerosis of seminole artery of both lower extremities, with unspecified presence of clinical manifestation (ICD-10 - I70.203) Q7(A), Q8(2B), Q9(1B,2C) 09/25/2024 Tinea unguium (ICD-10 - B35.1) 09/25/2024 Pain in right toe(s) (ICD-10 - M79.674) 09/25/2024 Pain in left toe(s) (ICD-10 - M79.675) Plan Of Treatment Pending Test Test Name Order Date [id number]-SFXAHUM NAIL, 6 OR MORE 09/25/2024 19766-WDAC SKIN LESIONS, OVER 4 09/25/19 25 Next Appt Details Follow Up: prn, Reason: Provider Name:Eliceo Del Castillo , 12/25/2024 11:15:00 AM, [address] [place] [address], [phone], Procedure Notes * Category Sub-Category Detail Notes Debride Nail 6-10 Nail debridement Due to the cl inical pathology outlined in the exam findings, performance of this nail treatment is medically necessary as its management by an unskilled/untrained nonprofessional would put this patients foot and overall health at risk. Therefore, debridement to affected nail(s), as described in exam ( TA, T1, T2, T4, T5, T6, T9), was performed exclusively by the physician of record to reduce/remove overall nail length, girth, thickness, subungual debris, and necrotic tissue, by manual and/or electrical means through the use of a nail nipper and/or dremel-type grinder hand, to a more viable healthy nail plate or bed tissue 6-10 nails in total. Silver nitrate was used for any petechial bleeding as necessary. Definitive antifungal treatment options, both pharmaceutical and surgical, have been reviewed and discussed with the patient. The patient solely prefers the use of intermittent/as needed professional debridement services for their nail condition and understands the need for additional periodic treatments to maintain effectiveness in symptomatic relief - 54569 Keratoma Treatment Parring or Cutting o f Benign Hyperkeratotic Lesion(s) (-57) More than 4 Lesions - Due to the at risk nature of the patients medical condition as documented in the exam findings, performance of this keratoderma treatment is medically necessary as its management by an unskilled/untrained nonprofessional would put this patients foot and overall health at risk. Therefore, the benign hyperkeratotic lesions, ( 8) in total, locations as stated and described in the exam ( Medial , IPJ , TA , Medial , IPJ , T5 , Plantar , T2 , SUB MTH (s) , 1 , B/L , SUB MTH (s), 5, Left, Plantar, Heel(s) , B/L), were pared, and/or cut utilizing a sterile 15 blade, tissue nippers, and/or power dremel instrumentation by the physician of record - 65742, Q8 Progress Notes * Yfn BYNUMDOB:1955 (69 yo M)Acc No.[id number]:09/25/2024 Progress Note Patient:Yfn ORR Provider:?Eliceo Del Castillo DPM :1955???Age:69 Y???Sex:Male Juan Carlos e:09/25/2024 Address:[facility] [address], [place] , [id number] Pcp:Delaney Marrero Subjective: * Chief Complaints: * ???At Risk FootcarePainful N ail(s) aggravated by shoes and causing difficulty standing/walking. * HPI: ???At Risk footcare:?Pt States Last PCP Visit:?Date?06/13/2024 * ROS:?General/Constitutional:?Nausea?denies.?Vomiting?denies.?Hunger Thirst?denies.?Loss appetite?denies.?Chills?denies.?Fatigue?denies.?Fever?denies.?Night Sweats?denies.?Unexplained weight loss?denies.?Unexplained [...] abdullahi gonsalves.?Father: .? * Social History:?Tobacco Use:?Tobacco use other than smoking?Are you an other tobacco user??No ?Tobacco Control (Standard)?Tobacco use:?Nonsmoker ?Additional Findings: Tobacco non-user?Current nonsmoker ???Drugs/Alcohol:?Drugs?Have you used drugs other than those for medical reasons in the past 12 months??No ?Alcohol Screen?Did you have a drink containing alcohol in the past year??No ?Points?0 ?Interpretation?Negative ???Miscellaneous:?Caffeine: yes, frequency:, 1-2 cups per day. ?Children: yes, 2. ?Exercise: no. ?Marital status: . 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 * Medications:?TakingtraMADol HCl 100 MG Tablet 1 [...] Externally Twice a day Taking traMADol HCl 100 MG Tablet 1 tablet [...] patient * Allergies:?N.K.D.A.yes[Aller gies Verified] Objective: * Vitals:?Ht:6ft, Wt:375, BMI: 50.85, Shoe size:16, BP:140/70mm Hg, Ht-cm: 182.88 cm, Wt-k.1 kg. * Examination: ???Vascular: ?DP PULSES (B):?1/4, B/L.?PT PULSES (B):? 0/4, B/L.?CAPILLARY FILL TIME:? delayed, all digits, B/L.?TROPHIC CONDITION-TEXTURE/ELASTICITY/TURGOR/HAIR GROWTH (B):? decreased, with sparse to absent hair growth, B/L.?TEMPERTURE GRADIENT (C):? decreased, cool to cool, [...] B/L , SUB MTH (s), 5, Left, Plantar, Heel(s) , B/L.? Assessment: * Assessment: 1.?Tinea unguium - B35.1???2 .?Atherosclerosis of seminole artery of both lower extremities, with unspecified presence of clinical manifestation - I70.203 (Primary)???Notes :Q7(A), Q8(2B), Q9(1B,2C)???3.?Pain in right toe(s) - M79.674???4.?Pain in left toe(s) - M79.675??? Plan: * Treatment: 2.?Tinea unguium?Procedure: 12079-WRDFFQS NAIL, 6 OR MORE * Procedures:?Debride Nail 6-10:?Nail debridement?Due to the clinical pathology outlined in the exam findings, performance of this nail treatment is medically necessary as its management by an unskilled/untrained nonprofessional would put this patients foot and overall health at risk. Therefore, debridement to affected nail(s), as described in exam (?TA,?T1,?T2,?T4,?T5,?T6,?T9), was performed exclusively by the physician of record to reduce/remove overall nail length, girth, thickness, subungual debris, and necrotic tissue, by manual and/or electrical means through the use of a nail nipper and/or dremel-type grinder hand, to a more viable healthy nail plate or bed tissue 6- 10 nails in total. Silver nitrate was used for any petechial bleeding as necessary. Definitive antifungal treatment options, both pharmaceutical and surgical, have been reviewed and discussed with the patient. The patient solely prefers the use of intermittent/as needed professional debridement services for their nail condition and understands the need for additional periodic treatments to maintain effectiveness in symptomatic relief - 82690.?Keratoma Treatment:?Parring or Cutting of Benign Hyperkeratotic Lesion(s)?(-57) More than 4 Lesions - Due to the at risk nature of the patients medical condition as documented in the exam findings, performance of this keratoderma treatment is medically necessary as its management by an unskilled/untrained nonprofessional would put this patients foot and overall health at risk. Therefore, the benign hyperkeratotic lesions, ( 8) in total, locations as stated and described in the exam (?Medial?,?IPJ?,?TA?,?Medial?,?IPJ?,?T5?,?Plantar?,?T2?,?SUB MTH (s)?,?1?,?B/L?,?SUB MTH (s),?5,?Left,?Plantar,?Heel(s)?,?B/L), were pared, and/or cut utilizing a sterile 15 blade, tissue nippers, and/or power dremel instrumentation by the physician of record - 41870, Q8.? * Procedure Codes:?13925 DEBRI DE NAIL, 6 OR MORE, Modifiers: XS 24537 TRIM SKIN LESIONS, OVER 4, Modifiers: XS , Q8 * Follow Up:?prn * Images: * Sign off status: Completed true * Provider:?Eliceo Del Castillo DPM Date:?2024 Generated for Pop michaels/Monique/Lucero on:?11/02/2024 08:22 AM EST History and Physical Notes * [...] B/L , SUB MTH (s), 5, Left, Plantar, Heel(s) , B/L Vascular DP PULSES (B): 1/4, B/L PT [...]
--- OUTSIDE RECORDS SUMMARY | 2024-11-02 08:22 | XMS_ITS | Clinical Summary ---
Author Organization [employer] Address [address] [place] [address] [address] [place] [address] Care Team Providers Care Agent Based Modeler Name Role Phone Unavailable Primary Care Provider [...] ADULT Routine 10/22/2022 9 :00 AM EST INTRAORAL - COMPLETE SERIES OF RADIOGRAPHIC IMAGES Routine 10/22/2022 9:00 AM EST from Last 3 Months or Most Recently Relevant to Health Maintenance Insurance DENTAL - [facility]
--- OUTSIDE RECORDS SUMMARY | 2024-11-02 08:22 | XMS_ITS | Patient Health Record ---
Author Organization [facility] Address [address] [place] [address] Care Team Providers Care Director Volunteer Services Name Role Phone JanesDelaney Primary Care Provider Eliceo Loving Unavailable [phone] Allergies No Known Allergies Reason For Referral No Information Medications Medication SIG (Take, Route, Frequency, Duration) Notes Start Date End Date Status Meloxicam 15 MG 1 tablet Orally Once a day Active Pantoprazole Sodium 40 MG 1 tablet Orall y Once a day Active Metoprolol Succinate ER 100 MG 1 tablet Orally Once a day Active hydroCHLOROthiazide 25 MG 1 tablet in th e morning Orally Once a day Active traMADol HCl 100 MG 1 tablet as needed Orally Once a day Active Ammonium Lactate 12 % 1 application Externally Twice a day for 30 days Active Lisinopril 40 MG 1 tablet Orally Once a day Not-Taking Social History Tobacco Use: Social History Observation [...] Additional Findings: Tobacco non-user Current no nsmoker Problems Problem Type SNOMED Code ICD Code Onset Dates Problem Status W/U Status Risk Notes Problem Atherosclerosis of [place] arteries of the extremities ([id number]) Atherosclerosis of [place] artery of both lower extremities, with unspecified presence of clinical manifestation (I70.203) Active confirmed Q7(A), Q8(2B), Q9(1B,2 C) Vital Signs Blood pressure diastolic 70 mm Hg 09/25/2024 Height 6ft in 09/25/2024 Blood pressure systolic 140 mm Hg 09/25/2024 Weight 375 lbs 09/25/2024 BMI 50.85 kg/m2 09/25/2024 Procedures Procedure Date Ordered Date Performed Result Body Sit e 12428-BNXLPIH NAIL, 6 OR MORE 12/27/2023 N/A 47478-Enby Destruction, 1-14 12/27/2023 N/A 13361-VBKF SKIN LESIONS, OVER 4 12/27/2023 N/A 29225-MOQRHGV NAIL, 6 OR MORE 03/27/2024 N/A 99092 I&D ABSCESS- SIMPLE,SINGLE 03/27/2024 N/A 28873-NYSW SKIN LESIONS, OVER 4 03/27/2024 N/A 57552-NMECDJL NAIL, 6 OR MORE 06/26/2024 N/A 74530-TCEE SKIN LESIONS, OVER 4 06/26/2024 N/A 43585-GWYODVQ NAIL, 6 OR MORE 09/25/2024 N/A 62402-MECS SKIN LESIONS, OVER 4 09/25/2024 N/A Encounters Encounter Location Date Provider Diagnosis [address] [address] 12/27/2023 Eliceo Del Castillo Atherosclerosis of [place] artery of both lower extremities, with unspecified presence of clinical manifestation I70.203 ; Plantar wart B07.0 ; Tinea unguium B35.1 ; Pain in right toe(s) M79.674 ; Pain in left toe(s) M79.675 ; Left foot pain M79.672 and Xerosis of skin L85.[address] [address] 03/27/2024 Eliceo Del Castillo Atherosclerosis of [place] artery of both lower extremities, with unspecified presence of clinical manifestation I70.203 ; Tinea unguium B35.1 ; Pain in right toe(s) M79.674 ; Pain in left toe(s) M79.675 ; Left foot pain M79.672 ; Xerosis of skin L85.3 and Abscess of toe, right L02.[address] [place] [address] 06/26/2024 Eliceo Del Castillo Atherosclerosis of [place] artery of both lower extremities, with unspecified presence of clinical manifestation I70.203 ; Tinea unguium B35.1 ; Pain in right toe(s) M79.674 and Pain in left toe(s) M79.675 [facility] [address] [address] 09/25/2024 Eliceo Del Castillo Atherosclerosis of [place] artery of both lower extremities, with unspecified presence of clinical manifestation I70.203 ; Tinea unguium B35.1 ; Pain in right toe(s) M79.674 and Pain in left toe(s) M79.675 Assessments Encounter Date Diagnosis (ICD Code) Assessment Notes Treatment Notes Treatment Clinical Notes Section Notes 12/27/2023 Plantar wart (ICD-10 - B07.0) 12/27/2023 Atherosclerosis of [place] artery of both lower extremities, with unspecified presence of clinical manifestation (ICD-10 - I70.203) 03/27/2024 Tinea unguium (ICD-10 - B35.1) 03/27/2024 Atherosclerosis of [place] artery of both lower extremities, with unspecified presence of clinical manifestation (ICD-10 - I70.203) 06/26/2024 Tinea unguium (ICD-10 - B35.1) 06/26/2024 Atherosclerosis of [place] artery of both lower extremities, with unspecified presence of clinical manifestation (ICD-10 - I70.203) Q7(A), Q8(2B), Q9(1B,2C) 09/25/2024 Tinea unguium (ICD-10 - B35.1) 09/25/2024 Atherosclerosis of [place] artery of both lower extremities, with unspecified presence of clinical manifestation (ICD-10 - I70.203) Q7(A), Q8(2B), Q9(1B,2C) 06/26/2024 Pain in right toe(s) (ICD-10 - M79.674) 09/25/2024 Pain in right toe(s) (ICD-10 - M79.674) 03/27/2024 Pain in right toe(s) (ICD-10 - M79.674) 12/27/2023 Tinea unguium (ICD-10 - B35.1) 12/27/2023 Pain in right toe(s) (ICD-10 - M79.674) 03/27/2024 Pain in left toe(s) (ICD-10 - M79.675) 09/25/2024 Pain in left toe(s) (ICD-10 - M79.675) 06/26/2024 Pain in left toe(s) (ICD-10 - M79.675) 03/27/2024 Left foot pain (ICD-10 - M79.672) 12/27/2023 Pain in left toe(s) (ICD-10 - M79.675) 12/27/2023 Left foot pain (ICD-10 - M79.672) 03/27/2024 Xerosis of skin (ICD-10 - L85.3) 03/27/2024 Abscess of toe, right (ICD-10 - L02.611) Patient Educated with: WOUND CARE INSTRUCTIONS. pdf (WOUND CARE INSTRUCTIONS. pdf) 12/27/2023 Xerosis of skin (ICD-10 - L85.3) 03/27/2024 Other Plan Of Treatment Pending Test Test Name Order Date 01940-UEUNWDE NAIL, 6 OR MORE 09/16/2023 98256-HCKMNWV NAIL, 6 OR MORE 12/27/2023 61686-KUISYFJ NAIL, 6 OR MORE 03/27/2024 83188-ZBLEFON NAIL, 6 OR MORE 06/26/2024 15438-QITGWJZ NAIL, 6 OR MORE 09/25/2024 48457-Xsds Destruction, 1-12/27/2023 73032-Jxlb Destruction, 1-09/16/2023 39271 I&D ABSCESS- SIMPLE,SINGLE 024 33622-BAZY SKIN LESIONS, OVER 4 09/25/19 25 39982-EMHW SKIN LESIONS, OVER 4 09/16/19 24 49470-YRRG SKIN LESIONS, OVER 4 12/27/19 24 93877-EZGL SKIN LESIONS, OVER 4 06/26/20 24 53165-DCJS SKIN LESIONS, OVER 4 03/27/20 24 Next Appt Details Provider Name:Eliceo Del Castillo , 12/25/2024 11:15:00 AM, [address], [place], [address], Insurance Providers Payer Name Payer Address Payer Phone Subscriber Number Group Number Insured Name Patient Relationship to Insured Coverage Start Date Coverage End Date Medicare National [employer] [address] [place] [address] [id number] Yfn Bynum Self - patient is the insured Med [employer] [facility] [address] [place] [address] [phone] [id number] Yfn Bynum Self - patient is the insured Medical (General) History Medical History History ICD Code High blood pressure Back,Hip,and Knee pain covid-19 Surgical History Surgery Date(Month/Year) Triple Arthrodesis, Left 1980s
--- NOTE | 2024-11-02 08:26 | MHC.OFFVIS ---
Intake Visit Reasons: Hypertension Allergies lisinopril Adverse Reaction (Intermediate, Verified 01/20/24 08:29) Angioedema PFS Medical History (Updated 07/16/24 @ 12:24 by Delaney Marrero MD) Obesity Weight gain Snores Lower extremity edema Legionnaires' disease Seborrheic dermatitis COVID-19 virus infection Asthma Allergic rhinitis Lymphedema Obstructive sleep apnea Gastric ulcer, unspecified as acute or chronic, without hemorrhage or perforation GERD (gastroesophageal reflux disease) Hypertension Surgical History H/O esophagogastroduodenoscopy Hx of colonoscopy History of lipoma History of ankle surgery Family History (Updated 02/28/23 @ 13:03 by THANG Stubbs) Father No problems noted. Mother No problems noted. Social History Housing: House Alcohol intake: never Patient Tobacco Use Status: Never used Tobacco e-Cigarette/Vaping Use: Never Used Second Hand Smoke Exposure: No service: No Current occupational status: retired Cognitive needs: Yes (Cane) Hearing needs: No Vision needs: Yes Coding
[2024-11-02 08:31] VITALS: BP 152/80; PULSE 66; O2SAT 98; BMI 52.4
--- NOTE | 2024-11-02 08:31 | MHC.PC.OV ---
Vital Signs 11/02/24 08:31 11/02/24 08:47 Height 6 ft 1 in Weight 397 lb BMI 52.4 BP 152/80 H 144/70 H Blood Pressure Location Lt brachial Lt brachial Position Sitting Sitting Pulse 66 Pulse Source Pulse Oximeter Pulse Oximetry (%) 98 Oxygen Delivery Method Room Air Intake Visit Reasons: Hypertension Allergies lisinopril Adverse Reaction (Intermediate, Verified 11/02/24 08:32) Angioedema Medication List - Last Reconciled 11/02/24 by Delaney Marrero MD ascorbate calcium (vitamin C) 500 mg PO DAILY bisacodyl (Dulcolax (bisacodyl)) 10 mg (2 x 5 mg) PO BEDTIME blood pressure monitor (Blood Pressure Kit) As directed clotrimazole 1% 1 appl topical BID 4 weeks josé manuel.stocking,knee,reg,xlrg As directed 20-30 mm HG fluticasone propionate 50 mcg/actuation (Flonase Allergy Relief) 2 sprays intranasal DAILY hydrochlorothiazide 25 mg PO QAM 90 days losartan 100 mg PO DAILY meloxicam 15 mg PO DAILY metoprolol succinate ER 100 mg PO DAILY miconazole nitrate 2% (Zeasorb AF) 1 appl topical DAILY multivitamin,ee-ycvg-taruvqiy (Complete Multivitamin tablet) 1 tab PO DAILY pantoprazole (Protonix) 40 mg PO DAILY polyethylene glycol 3350 (Miralax) 238 grams PO ONCE tirzepatide (Mounjaro) 2.5 mg (0.5 mL) subcut QWEEK tramadol 50 mg PO DAILY Tobacco use date assessed: 11/02/24 Fall risk assessment: No Falls in past year Last assessed Fall Risk: 11/02/24 Dental Screening Dental Screen Date: 11/02/24 Did you have a dental visit in the last 12 months?: Yes Did you have a dental problem in the last 6 months where you did not have access to dental care?: No Was dental information given to patient?: Patient has dentist HPI Hypertension HPI Details The patient is a 69-year-old male presenting with multiple chronic conditions for follow-up. He has a history of essential hypertension, which is currently managed with losartan 50 mg daily, hydrochlorothiazide 25 mg daily, and metoprolol 100 mg daily. There is a plan to increase losartan to 100 mg daily. The patient last attended a follow-up in July and blood work from October 2024 indicates chronic mild anemia. The patient's medical history includes morbid obesity for which the use of Wegovy has been discussed. Impaired glucose tolerance is indicated by a hemoglobin A1c of 6.0 and fasting blood glucose levels of 88 mg/dL, both within acceptable limits to not necessitate immediate intervention. GERD has been mentioned but appears to be under management. The patient has a diagnosis of obstructive sleep apnea with intolerance to CPAP treatment; improving control of this condition has been emphasized. The patient has been reminded to undergo colonoscopy for colorectal cancer screening. Additionally, the patient has a history of asthma, though no exacerbations were noted during this visit. Routine monitoring and adjustments based on compliance and tolerance to current treatments were recommended. [facility] Medical History (Updated 07/16/24 @ 12:24 by Delaney Marrero MD) Obesity Weight gain Snores Lower extremity edema Legionnaires' disease Seborrheic dermatitis COVID-19 virus infection Asthma Allergic rhinitis Lymphedema Obstructive sleep apnea Gastric ulcer, unspecified as acute or chronic, without hemorrhage or perforation GERD (gastroesophageal reflux disease) Hypertension Surgical History H/O esophagogastroduodenoscopy Hx of colonoscopy History of lipoma History of ankle surgery Family History (Updated 02/28/23 @ 13:03 by THANG Stubbs) Father No problems noted. Mother No problems noted. Social History Housing: House Alcohol intake: never Patient Tobacco Use Status: Never used Tobacco Tobacco use type: Cigarette e-Cigarette/Vaping Use: Never Used Second Hand Smoke Exposure: No service: No Current occupational status: retired Cognitive needs: Yes (Cane) Hearing needs: No Vision needs: Yes Questionnaire Thrive Questionnaire Date Thrive assessed: 11/02/24 I am a: Patient What is your living situation today?: I have a steady place to live Within the past 12 months, did the food you bought not last and you didn't have the money to get more?: Never true Within the past 12 months, did you worry whether your food would run out before you got money to buy more?: Never true Do you have trouble paying for medicines?: No Do you have trouble getting transportation to medical appointments?: No Do you have trouble paying your heating and electricity bill?: No Do you have trouble taking care of your child, family member or friend?: No Do you have trouble with day-to-day activities such as bathing, preparing meals, shopping, managing finances, etc.?: No Are you currently unemployed and looking for a job?: No Are you interested in more education?: No Currently or been in a relationship where the following occur: No concerns reported THRIVE Score: 0 AUDIT C Alcohol Use Questionnaire (AUDIT-C) 2. How many drinks containing alcohol do you have on a typical day when you are drinking?: 1 or 2 3. How often do you have six or more drinks on one occasion?: Never Total Score: 0 JACKSON-7 AMB Questionnaire JACKSON-7 Date JACKSON - 7 assessed: 11/02/24 Feeling nervous, anxious, or on edge: 0 = Not at all Not being able to stop or control worryin = Not at all Worrying too much about different things: 0 = Not at all Trouble relaxin = Not at all Being so restless that it is hard to sit still: 0 = Not at all Becoming easily annoyed or irritable: 0 = Not at all Feeling afraid as if something awful might happen: 0 = Not at all Total JACKSON-7 score (0-4 normal; 5-9 mild; 10-14 moderate; 15-21 severe): 0 Source: Developed by Drs. Hai Gipson, Maria De La Cruz, Raymundo Alvarado and colleagues, with an educational chencho from [employer]. Physical exam (Primary Care) Vital Signs: Last Vital Signs Pulse 66 11/02/24 08:31 BP 152/80 H 11/02/24 08:31 Pulse Ox 98 11/02/24 08:31 Oxygen Delivery Method Room Air 11/02/24 08:31 BMI result Body Mass Index 52.4 Tobacco/Smoking Status: Tobacco use Status Tobacco use date assessed 11/02/24 11/02/24 08:36 Patient Tobacco Use Status Never used Tobacco 11/02/24 08:36 Tobacco use type Cigarette 11/02/24 08:36 e-Cigarette/Vaping Use Never Used 11/02/24 08:36 Thrive Assessment: Date of Thrive Assessment Date Thrive assessed 11/02/24 11/02/24 08:36 Currently or been in a relationship where the following occur: No concerns reported Const General: alert; No acute distress Eyes Conjunctivae: conjunctivae normal Resp Auscultation: clear to auscultation bilaterally Cardio Rate: regular rate Rhythm: regular rhythm GI Inspection: Yes normal to inspection Extrem General: Yes normal to inspection and No edema Coding Level of Care Code Est Pt Level 4 (78266) Complex EM visit Add On G2211 Diagnoses Essential hypertension I10 Hypertension type: essential hypertension Gastroesophageal reflux disease without esophagitis K21.9 Esophagitis presence: without esophagitis Obstructive sleep apnea G47.33 Impaired fasting glucose R73.01 Tubulovillous adenoma of colon D12.6 Morbid obesity E66.01 Assessment & Plan Assessment & Plan (1) Hypertension: Code(s): I10 - Essential (primary) hypertension Category: Medical Qualifiers: Hypertension type: essential hypertension Qualified Code(s): I10 - Essential (primary) hypertension Plan: Continue with blood pressure medication. Decrease salt intake and exercise presently on losartan 50 mg once a day and hydrochlorothiazide 25 mg once a day metoprolol 100 mg once a day (2) GERD (gastroesophageal reflux disease): Comment: Managed by his PCP Code(s): K21.9 - Gastro-esophageal reflux disease without esophagitis Category: Medical Qualifiers: Esophagitis presence: without esophagitis Qualified Code(s): K21.9 - Gastro-esophageal reflux disease without esophagitis Plan: Avoid the foods that causes that usually spicy foods, tomato products, juices, coffee, soda and foods that your sensitive to. After eating do not lie down, allow 3-4 hours before in lie down. And keep the head of bed above 30 degrees to avoid the acid from going up. (3) Obstructive sleep apnea: Comment: does not use CPAP-New sleep study done on 11/26/21. Severe degree of sleep apnea. Total AHI 44/hr and oxygen liz was 67% Code(s): G47.33 - Obstructive sleep apnea (adult) (pediatric) Category: Medical Plan: Discussed about importance of getting sleep apnea under better control. (4) Impaired fasting glucose: Code(s): R73.01 - Impaired fasting glucose Category: Medical Plan: Decrease the amount of carbohydrate intake, pasta, bread, rice and potatoes are all sugar and that is aside from all the sweet stuff, remember that fruits are good but they are Sweet also. (5) Tubulovillous adenoma of colon: Comment: 2020 TVA 1 TA repeat 1 year, also sessile polyp Code(s): D12.6 - Benign neoplasm of colon, unspecified Category: Medical Plan: Patient is reminded about colonoscopy (6) Morbid obesity: Comment: BMI 53 Code(s): E66.01 - Morbid (severe) obesity due to excess calories Category: Medical Plan: Diet and exercise patient was prescribed wegovy. Plan - Hypertension: Increase losartan to 100 mg daily due to suboptimal control of blood pressure. - Obesity: Continued encouragement of diet and exercise; attempt to procure Wegovy as treatment. Consider referral to a weight health management consultant for further assistance. - Gastroesophageal Reflux Disease: Ongoing assessment and management of symptoms; encourage adherence to current treatment regimens. - Obstructive Sleep Apnea: Discuss alternative strategies to manage the condition given CPAP intolerance; refer to sleep specialist if needed. - Impaired Glucose Tolerance: Monitor hemoglobin A1c and fasting glucose. Advise lifestyle modifications including diet and exercise. - Asthma: Continue monitoring and management as per usual care. - Chronic Anemia: No immediate intervention required due to stable status; continue monitoring levels. - Preventative Care: Remind patient about the importance of getting a colonoscopy for colorectal cancer screening as per guidelines. Orders: Referrals Medical Weight Management Referral E66.01 - Morbid (severe) obesity due to excess calories, Z68.43 - Body mass index [BMI] 50.0-59.9, adult Medications: New tirzepatide (Mounjaro) for 4 weeks 2.5 mg (0.5 mL) subcut QWEEK 2 mL 3RF E66.01 - Morbid (severe) obesity due to excess calories, Z68.43 - Body mass index [BMI] 50.0-59.9, adult Changed From losartan 50 mg PO DAILY 30 tabs 3RF I10 - Essential (primary) hypertension To losartan 100 mg PO DAILY 30 tabs 3RF I10 - Essential (primary) hypertension Refilled metoprolol succinate ER 100 mg PO DAILY 90 tabs 3RF I10 - Essential (primary) hypertension hydrochlorothiazide 25 mg PO QAM 90 tabs 2RF 90 days I10 - Essential (primary) hypertension Discontinued semaglutide (weight loss) (Wegovy) administer weeks 1 through 4 of therapy Discontinued Reason: Doctor's Order 0.25 mg (0.5 mL) subcut QWEEK 2 mL 2RF E66.01 - Morbid (severe) obesity due to excess calories, R73.03 - Prediabetes
[2024-11-02 08:47] VITALS: BP 144/70
== END 2024-11-02 09:04 | disposition home or self-care (01) ==
PROVIDERS: PCP Internal Medicine; Visit Provider Internal Medicine
DX: I10 Essential (primary) hypertension (principal); K21.9 Gastro-esophageal reflux disease without esophagitis; Z68.43 Body mass index [BMI] 50.0-59.9, adult; E66.01 Morbid (severe) obesity due to excess calories; G47.33 Obstructive sleep apnea (adult) (pediatric); R73.01 Impaired fasting glucose; D12.6 Benign neoplasm of colon, unspecified

== ENCOUNTER → 2024-11-02 08:17 | Outpatient (BNVA) | payer MEDICARE, SELFPAY | PROVIDERS: PCP Internal Medicine; Visit Provider Internal Medicine | DX: I10 Essential (primary) hypertension (principal); K21.9 Gastro-esophageal reflux disease without esophagitis; G47.33 Obstructive sleep apnea (adult) (pediatric); R73.01 Impaired fasting glucose; D12.6 Benign neoplasm of colon, unspecified; E66.01 Morbid (severe) obesity due to excess calories | CPT/HCPCS: 99212 ==

== ENCOUNTER 2025-02-15 08:29 | Outpatient (AMB) | payer MEDICARE, SELFPAY ==
--- NOTE | 2025-02-15 08:32 | A.OFFPC_ITS ---
Vital Signs 02/15/25 08:33 02/15/25 09:08 Height 6 ft 1 in Weight 392 lb 2 oz BMI 51.7 BP 140/72 H 134/80 Blood Pressure Location Lt brachial Lt brachial Position Sitting Sitting Pulse 71 Pulse Source Pulse Oximeter Pulse Oximetry (%) 96 Oxygen Delivery Method Room Air Intake Visit Reasons: Hypertension, obesity Acetylene Gas Compressor Required: No Accompanied by: Self / Same As Patient Allergies lisinopril Adverse Reaction (Intermediate, Verified 02/15/25 08:41) Angioedema Tobacco use date assessed: 02/15/25 Fall risk assessment: No Falls in past year Last assessed Fall Risk: 02/15/25 Dental Screening Dental Screen Date: 02/15/25 Did you have a dental visit in the last 12 months?: No Did you have a dental problem in the last 6 months where you did not have access to dental care?: No Was dental information given to patient?: No [facility] Medical History (Updated 07/16/24 @ 12:24 by Delaney Marrero MD) Obesity Weight gain Snores Lower extremity edema Legionnaires' disease Seborrheic dermatitis COVID-19 virus infection Asthma Allergic rhinitis Lymphedema Obstructive sleep apnea Gastric ulcer, unspecified as acute or chronic, without hemorrhage or perforation GERD (gastroesophageal reflux disease) Hypertension Surgical History H/O esophagogastroduodenoscopy Hx of colonoscopy History of lipoma History of ankle surgery Family History Father No problems noted. Mother No problems noted. Social History Housing: House Alcohol intake: never Patient Tobacco Use Status: Never used Tobacco Tobacco use type: Cigarette e-Cigarette/Vaping Use: Never Used Second Hand Smoke Exposure: No service: No Current occupational status: retired Cognitive needs: Yes (Cane) Hearing needs: No Vision needs: Yes Questionnaire PHQ-9 Over the last 2 weeks, how often have you been bothered by any of the following problems? 1. Little interest or pleasure in doing things: not at all 2. Feeling down, depressed, or hopeless: not at all 3. Trouble falling or staying asleep, or sleeping too much: not at all 4. Feeling tired or having little energy: several days 5. Poor appetite or overeating: several days 6. Feeling bad about yourself - or that you are a failure or have let yourself or your family down: several days 7. Trouble concentrating on things, such as reading the newspaper or watching te levision: not at all 8. Moving or speaking so slowly that other people could have noticed. Or the opposite - being so fidgety or restless that you have been moving around a lot more than usual: not at all 9. Thoughts that you would be better off or of hurting yourself in some way: not at all Total score: 3 Depression Screening Interpretation: Positive Depression Screening Done: Yes Source: Developed by Drs. Hai Gipson, Maria De La Cruz, Raymundo Alvarado and colleagues, with an educational chencho from [employer]. Thrive Questionnaire Date Thrive assessed: 02/15/25 I am a: Patient What is your living situation today?: I have a steady place to live Within the past 12 months, did the food you bought not last and you didn't have the money to get more?: Never true Within the past 12 months, did you worry whether your food would run out before you got money to buy more?: Never true Do you have trouble paying for medicines?: No Do you have trouble getting transportation to medical appointments?: No Do you have trouble paying your heating and electricity bill?: No Do you have trouble taking care of your child, family member or friend?: No Do you have trouble with day-to-day activities such as bathing, preparing meals, shopping, managing finances, etc.?: No Are you currently unemployed and looking for a job?: No Are you interested in more education?: No Please select the resources that you would like help with: None Currently or been in a relationship where the following occur: No concerns reported THRIVE Score: 0 AUDIT C Alcohol Use Questionnaire (AUDIT-C) 1. How often do you have a drink containing alcohol?: Never 2. How many drinks containing alcohol do you have on a typical day when you are drinking?: 1 or 2 3. How often do you have six or more drinks on one occasion?: Never Total Score: 0 JACKSON-7 AMB Questionnaire JACKSON-7 Date JACKSON - 7 assessed: 02/15/25 Feeling nervous, anxious, or on edge: 0 = Not at all Not being able to stop or control worryin = Not at all Worrying too much about different things: 0 = Not at all Trouble relaxin = Not at all Being so restless that it is hard to sit still: 0 = Not at all Becoming easily annoyed or irritable: 0 = Not at all Feeling afraid as if something awful might happen: 0 = Not at all Total JACKSON-7 score (0-4 normal; 5-9 mild; 10-14 moderate; 15-21 severe): 0 Source: Developed by Drs. Hai Gipson, Maria De La Cruz, Raymundo Alvarado and colleagues, with an educational chencho from [employer]. Physical exam (Primary Care) Vital Signs: Last Vital Signs Pulse 71 02/15/25 08:33 BP 134/80 02/15/25 09:08 Pulse Ox 96 02/15/25 08:33 Oxygen Delivery Method Room Air 02/15/25 08:33 BMI result Body Mass Index 51.7 Tobacco/Smoking Status: Tobacco use Status Tobacco use date assessed 02/15/25 02/15/25 08:47 Patient Tobacco Use Status Never used Tobacco 02/15/25 08:47 Tobacco use type Cigarette 02/15/25 08:47 e-Cigarette/Vaping Use Never Used 02/15/25 08:47 PHQ-9: PHQ-9 Score PHQ-9: Total score 3 02/15/25 09:03 Depression Screening Interpretation: Positive Thrive Assessment: Date of Thrive Assessment Date Thrive assessed 02/15/25 02/15/25 08:47 Currently or been in a relationship where the following occur: No concerns reported Const General: alert; No acute distress Eyes Conjunctivae: conjunctivae normal Resp Auscultation: clear to auscultation bilaterally Cardio Rate: regular rate Rhythm: regular rhythm GI Inspection: Yes normal to inspection Extrem General: Yes normal to inspection and No edema Coding Level of Care Code Est Pt Level 4 (97139) Complex EM visit Add On G2211 Diagnoses Tubulovillous adenoma of colon D12.6 Essential hypertension I10 Hypertension type: essential hypertension Gastroesophageal reflux disease without esophagitis K21.9 Esophagitis presence: without esophagitis Obstructive sleep apnea G47.33 Impaired fasting glucose R73.01 Peripheral vascular disease I73.9 Morbid obesity with BMI of 50.0-59.9, adult E66.01; Z68.43 Assessment & Plan Assessment & Plan (1) Tubulovillous adenoma of colon: Comment: 2020 TVA 1 TA repeat 1 year, also sessile polyp Code(s): D12.6 - Benign neoplasm of colon, unspecified Category: Medical Plan: Is reminded about colonoscopy (2) Hypertension: Code(s): I10 - Essential (primary) hypertension Category: Medical Qualifiers: Hypertension type: essential hypertension Qualified Code(s): I10 - Essential (primary) hypertension Plan: Continue with blood pressure medication. Decrease salt intake and exercise patient is on hydrochlorothiazide and losartan and metoprolol (3) GERD (gastroesophageal reflux disease): Comment: Managed by his PCP Code(s): K21.9 - Gastro-esophageal reflux disease without esophagitis Category: Medical Qualifiers: Esophagitis presence: without esophagitis Qualified Code(s): K21.9 - Gastro-esophageal reflux disease without esophagitis Plan: Avoid the foods that causes that usually spicy foods, tomato products, juices, coffee, soda and foods that your sensitive to. After eating do not lie down, allow 3-4 hours before in lie down. And keep the head of bed above 30 degrees to avoid the acid from going up. (4) Obstructive sleep apnea: Comment: does not use CPAP-New sleep study done on 11/26/21. Severe degree of sleep apnea. Total AHI 44/hr and oxygen liz was 67% Code(s): G47.33 - Obstructive sleep apnea (adult) (pediatric) Category: Medical Plan: cannot tolerate CPAP (5) Impaired fasting glucose: Code(s): R73.01 - Impaired fasting glucose Category: Medical Plan: Decrease the amount of carbohydrate intake, pasta, bread, rice and potatoes are all sugar and that is aside from all the sweet stuff, remember that fruits are good but they are Sweet also. (6) Peripheral vascular disease: Code(s): I73.9 - Peripheral vascular disease, unspecified Category: Medical Plan: When sitting down elevate the legs, exercise, and support stockings diet and exercise (7) Morbid obesity with BMI of 50.0-59.9, adult: Code(s): E66.01 - Morbid (severe) obesity due to excess calories; Z68.43 - Body mass index [BMI] 50.0-59.9, adult Category: Medical Plan History of Present Illness The patient is a 69-year-old male presenting for follow-up of his chronic medical conditions and colonoscopy scheduling. He has a history of essential hypertension managed with hydrochlorothiazide, losartan, and metoprolol, but reports not monitoring blood pressure at home and notes elevated readings taken in the office. Blood work from October 2024 indicated mild anemia, though renal and liver function appeared normal. The patient is morbidly obese with concerns regarding knee pain from osteoarthritis, affecting his mobility and physical activity. Despite some u nintentional weight loss, he struggles with mobility, which is exacerbated by the failure to regularly use his CPAP for obstructive sleep apnea. However, the nasal spray has reduced his snoring. Though diagnosed with prediabetes, the patient maintained a hemoglobin A1c of 6.0% and expresses interest in weight loss programs. Scheduling issues have delayed a recommended colonoscopy due to his history of adenomatous polyps, complicating preventative care. His engagement in respiratory treatment for asthma and management of GERD during this visit was minimal. Health Maintenance - Discussed the need for colonoscopy following history of tubular adenomas; currently dealing with scheduling issues. - Fasting blood work recommended within three months prior to next appointment. - Suggested lifestyle modifications since patient lost weight unintentionally. - Reinforced CPAP use for obstructive sleep apnea. - Encouraged home blood pressure monitoring and regular blood pressure checks. - Mentioned shingles vaccination, with patient receiving second shot soon. Social History - Mobility challenges due to knee osteoarthritis impacting exercise capabilities. - Unintentional weight loss noted, with no specific dietary or physical activity regimen detailed. - Mentioned home maintenance issues (flooded basement, water tank burst) potentially impacting stress levels. Review of Systems - Cardiovascular: Reports mild hypertension. - Musculoskeletal: Reports knee pain attributed to osteoarthritis. - Respiratory: Denied use of CPAP regularly; nasal spray reportedly reduced snoring. - Endocrine: Reports prediabetes; noted weight loss. - Gastrointestinal: Due for colonoscopy, previous history of adenomatous polyps. - General: Denies specific dietary modifications or exercise routines; unin tentional weight loss noted. Physical Exam - Cardiovascular- Mildly elevated blood pressure, 134. - General- Unintentional weight loss observed. Results - Labs: October 2024 blood work; mild anemia, normal electrolytes, normal renal function, normal liver function, hemoglobin A1c 6.0%, normal PSA, vitamin B12, folate, thyroid function. LDL cholesterol 87. Plan For essential hypertension, we will keep the current medications and encourage regular home BP checks. For obesity and prediabetes, focusing on diet and exercise, and considering weight loss medications through insurance appeals. Asthma and GERD continue on current regimes, and we reinforce the use of CPAP for sleep apnea. Follow up on colonoscopy scheduling is crucial due to his history. Overall pain management strategies for osteoarthritis should consider his activity limitations, and fasting blood work is planned in the next three months. Vaccination and adherence to CPAP is emphasized. Patient was informed and verbally consented to the use of an ambient scribe for clinic note documentation during this visit. Discussion Notes I discussed with the patient his essential hypertension management, including the continuation of current medications and the importance of regular blood pressure monitoring at home. We examined the challenges related to morbid obesity and prediabetes, emphasizing dietary improvements and physical activity to influence weight loss positively. We explored weight loss medication options, despite prior insurance denials, and advised the patient to follow up with the weight loss program. Colonoscopy was confirmed as a significant component of his preventive care, and I encouraged continued scheduling efforts given his polyp history. For obstructive sleep apnea, I reiterated the importance of CPAP use, alongside monitoring improvements with nasal spray. We reviewed the relevance of fasting blood work before the next appointment and necessary vaccinations. Patient Instructions - Continue to check your blood pressure at home regularly. - Follow your diet and exercise program carefully; keep track of weight loss. - Follow up with the colonoscopy scheduling clinic. - Use your CPAP machine nightly as much as you can. - Schedule fasting blood work a few weeks before your next visit. - Get your second shingles vaccine shot as scheduled. - Contact the weight loss program to discuss appeal options for medication coverage. - Monitor for any new symptoms, and call if you have questions or concerns. Orders: Orders Free T4 (Free Thyroxine) Today I10 - Essential (primary) hypertension Lipid Panel Today E78.00 - Pure hypercholesterolemia, unspecified, I10 - Essential (primary) hypertension Vitamin B12 and Folate Today I10 - Essential (primary) hypertension Complete Blood Count Auto Diff Today I10 - Essential (primary) hypertension Comprehensive Met. Panel Today I10 - Essential (primary) hypertension Thyroid Stimulating Hormone Today I10 - Essential (primary) hypertension Hemoglobin A1c Today I10 - Essential (primary) hypertension Prostate Specific Antigen Scr Today I10 - Essential (primary) hypertension Medications: Refilled clotrimazole 1% 1 appl topical BID 90 grams 0RF 4 weeks B35.6 - Tinea cruris fluticasone propionate 50 mcg/actuation (Flonase Allergy Relief) administer into each nostril 2 sprays intranasal DAILY 16 grams 2RF R09.81 - Nasal congestion metoprolol succinate ER 100 mg PO DAILY 90 tabs 3RF I10 - Essential (primary) hypertension losartan 100 mg PO DAILY 90 tabs 3RF I10 - Essential (primary) hypertension hydrochlorothiazide 25 mg PO QAM 90 tabs 2RF 90 days I10 - Essential (primary) hypertension tramadol 50 mg PO DAILY 90 tabs 2RF M17.10 - Unilateral primary osteoarthritis, unspecified knee meloxicam 15 mg PO DAILY 90 tabs 1RF M25.569 - Pain in unspecified knee pantoprazole (Protonix) 40 mg PO DAILY 90 tabs 2RF K21.9 - Gastro-esophageal reflux disease without esophagitis
[2025-02-15 08:33] VITALS: BP 140/72; PULSE 71; O2SAT 96; BMI 51.7
--- OUTSIDE RECORDS SUMMARY | 2025-02-15 08:38 | XMS_ITS | Encounter Summary ---
Author Organization [employer] [facility] Address [address] [place] [address] Care Team Providers Care Welding Machine Operator Electroslag Name Role Phone Unavailable Primary Care Provider Unavailabl e Encounter Details Date Type Department Care Team (Latest Contact Info) Description 10/31/2018 Abstract C CONVERSIONS Dental, Provider, DDS Social History Tobacco [...]
[2025-02-15 09:08] VITALS: BP 134/80
== END 2025-02-15 09:18 | disposition home or self-care (01) ==
LOC: HO.HMCH 08:29
PROVIDERS: PCP Internal Medicine; Visit Provider Internal Medicine
DX: D12.6 Benign neoplasm of colon, unspecified (principal); I10 Essential (primary) hypertension; Z68.43 Body mass index [BMI] 50.0-59.9, adult; E66.01 Morbid (severe) obesity due to excess calories; G47.33 Obstructive sleep apnea (adult) (pediatric); K21.9 Gastro-esophageal reflux disease without esophagitis; R73.01 Impaired fasting glucose; I73.9 Peripheral vascular disease, unspecified

== ENCOUNTER → 2025-02-15 08:29 | Outpatient (BNVA) | payer MEDICARE, SELFPAY | PROVIDERS: PCP Internal Medicine; Visit Provider Internal Medicine | DX: D12.6 Benign neoplasm of colon, unspecified (principal); I10 Essential (primary) hypertension; K21.9 Gastro-esophageal reflux disease without esophagitis; G47.33 Obstructive sleep apnea (adult) (pediatric); R73.01 Impaired fasting glucose; I73.9 Peripheral vascular disease, unspecified; E66.01 Morbid (severe) obesity due to excess calories; Z68.43 Body mass index [BMI] 50.0-59.9, adult; Z71.3 Dietary counseling and surveillance | CPT/HCPCS: 99212 ==

== ENCOUNTER 2025-06-14 06:24 | Outpatient (REF) | payer MEDICARE, SELFPAY ==
--- OUTSIDE RECORDS SUMMARY | 2025-06-14 06:28 | XMS_ITS | Clinical Summary ---
Author Organization [employer] Address [address] [place] [address] Care Team Providers Care Pipe Insulator Helper Name Role Phone Unavailable Primary Care Provider [...] Screening 03/25/2024 03/25/2023 COVID-19 Vaccine ( season) 2025 08/26/2022, 07/30/2021, 10/30/2020, Additional history exists Influenza Vaccine (#1) 2025 , 06/17/2021, 06/28/2019, Additional history exists Pneumococcal [...] patient's age to complete this topic Meningococcal B Vaccine Aged Out No l onger eligible based on patient's age to complete [...]
--- OUTSIDE RECORDS SUMMARY | 2025-06-14 06:28 | XMS_ITS | Encounter Summary ---
Author Organization [facility] Address [address] [place] [address] Care Team Providers Care Wind Energy Mechanic Name Role Phone Unavailable Primary Care Provider Unavailabl e Encounter Details Date Type Department Care Team (Latest Contact Info) Description 11/20/2019 Abstract [facility] CONVERSIONS Dental, Provider, DDS Social History [...]
--- OUTSIDE RECORDS SUMMARY | 2025-06-14 06:28 | XMS_ITS | Patient Health Record ---
Author Organization [facility] Address [address] [place] [address] Care Team Providers Care Rivet Heater Gas Name Role Phone Delaney Marrero Primary Care Provider Eliceo Loving Unavailable [phone] Allergies No Known Allergies Reason For Referral No Information Medications Medication SIG (Take, Route, Frequency, Duration) Notes Start Date End Date Status Metoprolol Succinate ER 100 MG 1 tablet Orally Once a day Active Ammonium Lactate 12 % 1 application Externally Twice a day; Duration: 30 days Active Fluticasone Propionate 50 MCG/ACT Nasal; Duration: 60 Days Active Lisinopril 40 MG 1 tablet Orally Once a day Not-Taking Pantoprazole Sodium 40 MG 1 tablet Orall y Once a day Active Meloxicam 15 MG 1 tablet Orally Once a day Active hydroCHLOROthiazide 25 MG 1 tablet in th e morning Orally Once a day Active traMADol HCl 100 MG 1 tablet as needed Orally Once a day Active Immunizations Vaccine Route Administration Date Status Comme nts Influenza Unknown 06/12/2024 Administered Social History Tobacco Use: Social History Observation Description Date Details (start date - stop date) Never Smoker NA - NA Tobacco use other than smoking: Question Answer Notes Are you an other tobacco user? No Tobacco Control (Standard) Question Answer Notes Tobacco use: Nonsmoker Additional Findings: Tobacco non-user Current no nsmoker AUDIT-C (Standard) Question Answer Notes Did you have a drink containing alcohol in the p ast year? No Points 0 Interpretation Negative Problems Problem Type SNOMED Code ICD Code Onset Dates Problem Status W/U Status Risk Notes Problem Bilateral atherosclerosis of arteries of lower limbs (disorder) ([id number] ) Atherosclerosis of [place] artery of both lower extremities, with unspecified presence of clinical manifestation (I70.203) Active confirmed Q7(A), Q8(2B), Q9(1B,2 C) Vital Signs Blood pressure diastolic 60 mm Hg 04/02/2025 Height 6ft in 04/02/2025 Blood pressure systolic 140 mm Hg 04/02/2025 Weight 375 lbs 04/02/2025 BMI 50.85 kg/m2 04/02/2025 Procedures Procedure Date Ordered Date Performed Result Body Sit e 64204-NFDKJYL NAIL, 6 OR MORE 06/26/2024 N/A 68232-HVAG SKIN LESIONS, OVER 4 06/26/2024 N/A 49923-OOERHFF NAIL, 6 OR MORE 09/25/2024 N/A 30761-ZGSS SKIN LESIONS, OVER 4 09/25/2024 N/A 20313-MXSRZTE NAIL, 6 OR MORE 12/25/2024 N/A 54209-SYHA SKIN LESIONS, OVER 4 12/25/2024 N/A 14531-VLCSODU NAIL, 6 OR MORE 04/02/2025 N/A 93664-BISZ SKIN LESIONS, OVER 4 04/02/2025 N/A Encounters Encounter Location Date Provider Diagnosis [address] [address] 06/26/2024 Eliceo Del Castillo Atherosclerosis of [place] artery of both lower extremities, with unspecified presence of clinical manifestation I70.203 ; Tinea unguium B35.1 ; Pain in right toe(s) M79.674 and Pain in left toe(s) M79.[address] [address] 09/25/2024 Eliceo Del Castillo Atherosclerosis of [place] artery of both lower extremities, with unspecified presence of clinical manifestation I70.203 ; Tinea unguium B35.1 ; Pain in right toe(s) M79.674 and Pain in left toe(s) M79.[address] [address] 12/25/2024 Eliceodale KerrMagdalene Atherosclerosis of [place] artery of both lower extremities, with unspecified presence of clinical manifestation I70.203 ; Tinea unguium B35.1 ; Pain in right toe(s) M79.674 and Pain in left toe(s) M79.675 [facility] [place] [address] [place] [address] 04/02/2025 Eliceo Del Castillo Atherosclerosis of [place] artery of both lower extremities, with unspecified presence of clinical manifestation I70.203 ; Tinea unguium B35.1 ; Pain in right toe(s) M79.674 and Pain in left toe(s) M79.675 Assessments Encounter Date Diagnosis (ICD Code) Assessment Notes Treatment Notes Treatment Clinical Notes Section Notes 06/26/2024 Tinea unguium (ICD-10 - B35.1) 06/26/2024 Atherosclerosis of [place] artery of both lower extremities, with unspecified presence of clinical manifestation (ICD-10 - I70.203) Q7(A), Q8(2B), Q9(1B,2C) 09/25/2024 Tinea unguium (ICD-10 - B35.1) 09/25/2024 Atherosclerosis of [place] artery of both lower extremities, with unspecified presence of clinical manifestation (ICD-10 - I70.203) Q7(A), Q8(2B), Q9(1B,2C) 12/25/2024 Tinea unguium (ICD-10 - B35.1) 12/25/2024 Atherosclerosis of [place] artery of both lower extremities, with unspecified presence of clinical manifestation (ICD-10 - I70.203) Q7(A), Q8(2B), Q9(1B,2C) 04/02/2025 Tinea unguium (ICD-10 - B35.1) 04/02/2025 Atherosclerosis of [place] artery of both lower extremities, with unspecified presence of clinical manifestation (ICD-10 - I70.203) Q7(A), Q8(2B), Q9(1B,2C) 12/25/2024 Pain in right toe(s) (ICD-10 - M79.674) 04/02/2025 Pain in right toe(s) (ICD-10 - M79.674) 06/26/2024 Pain in right toe(s) (ICD-10 - M79.674) 09/25/2024 Pain in right toe(s) (ICD-10 - M79.674) 09/25/2024 Pain in left toe(s) (ICD-10 - M79.675) 06/26/2024 Pain in left toe(s) (ICD-10 - M79.675) 12/25/2024 Pain in left toe(s) (ICD-10 - M79.675) 04/02/2025 Pain in left toe(s) (ICD-10 - M79.675) Plan Of Treatment Pending Test Test Name Order Date 26903-FSBCAMK NAIL, 6 OR MORE 09/16/2023 48659-BALHYKM NAIL, 6 OR MORE 12/27/2023 02168-ASDFLNN NAIL, 6 OR MORE 03/27/2024 52626-XAAEFEB NAIL, 6 OR MORE 06/26/2024 10603-VRELTFI NAIL, 6 OR MORE 09/25/2024 18944-ZXLUXCR NAIL, 6 OR MORE 12/25/2024 72058-PVLOAIZ NAIL, 6 OR MORE 04/02/2025 44765-Ggud Destruction, 1-12/27/2023 63556-Rpss Destruction, 1-09/16/2023 19065 I&D ABSCESS- SIMPLE,SINGLE 024 75770-PVUY SKIN LESIONS, OVER 4 04/02/20 25 44235-YQEJ SKIN LESIONS, OVER 4 12/26/19 25 32114-EXXK SKIN LESIONS, OVER 4 09/25/19 25 60143-RJQZ SKIN LESIONS, OVER 4 09/16/19 24 65408-PKAP SKIN LESIONS, OVER 4 12/27/19 24 80484-BGLG SKIN LESIONS, OVER 4 06/26/20 24 96747-KIOS SKIN LESIONS, OVER 4 03/27/20 24 Next Appt Details Provider Name:Eliceo Del Castillo , 07/02/2025 09:30:00 AM, [address], [place], [address], Insurance Providers Payer Name Payer Address Payer Phone Subscriber Number Group Number Insured Name Patient Relationship to Insured Coverage Start Date Coverage End Date Medicare [employer] [address] [place] [address] [id number] Yfn Bynum Self - patient is the insured [facility] [address] [place] [address] [id number] Yfn Bynum Self - patient is the insured Medical (General) History Medical History History ICD Code High blood pressure Back,Hip,and Knee pain covid-19 Surgical History Surgery Date(Month/Year) Triple Arthrodesis, Left 1980s
--- OUTSIDE RECORDS SUMMARY | 2025-06-14 06:28 | XMS_ITS | Encounter Summary ---
Author Organization [facility] Address [address] [place] [address] Care Team Providers Care Motors Assembler Name Role Phone Unavailable Primary Care Provider [...]
[2025-06-14 06:43] LABS: MANUAL DIFF FLAG NO
[2025-06-14 07:40] LABS: Hematocrit 42.0 % (42.0-52.0); Hemoglobin 13.7 g/dl (14.0-18.0); Imm Gran Abs Auto 0.04 X10*3/uL (0.00-0.03); Imm Gran Pct Auto 0.4 % (0.0-0.4); Lymphocytes Absolute Auto 3.5 X10*3/uL (1.2-4.9); Mean Corpuscular HGB Conc 32.6 g/dl (31.0-36.0); Mean Corpuscular Hemoglobin 29.2 pg (27.0-33.0); Mean Corpuscular Volume 89.6 fL (80.0-98.0); NRBC Abs Auto 0.000 X10*3/uL (0.0-0.012); NRBC Pct Auto 0.0 /100WBC (0.0-0.2); Platelet Count 269 X10*3/uL (160-400); Red Blood Count 4.69 X10*6/uL (4.60-5.80); White Blood Count 11.4 X10*3/uL (4.8-10.8)
[2025-06-14 08:11] LABS: Alanine Aminotransferase 30 U/L (0-40); Albumin Level 4.1 g/dL (3.5-5.0); Alkaline Phosphatase 85 U/L (39-117); Anion Gap 12 (12-20); Aspartate Amino Transferase 27 U/L (5-37); Blood Urea Nitrogen 31 mg/dL (9-16); Calcium 9.2 mg/dL (8.4-10.2); Carbon Dioxide 27 mmol/L (22-29); Chloride 107 mmol/L (96-108); Cholesterol 161 mg/dL (<200); Estimated Glomerular Filt Rate > 60; HDL Cholesterol 31 mg/dL (>40); Potassium 4.0 mmol/L (3.3-5.1); Sodium 142 mmol/L (135-145); Total Protein 7.1 g/dL (6.5-8.0); Triglycerides 92 mg/dL (<150)
[2025-06-14 08:33] LABS: Free T4 (Free Thyroxine) 1.10 ng/dL (0.71-1.85); Thyroid Stimulating Hormone 2.82 uIU/mL (0.32-4.0)
[2025-06-14 08:36] LABS: Folate 14.8 ng/mL (> or = 4.0); Vitamin B12 439 pg/mL (200-900)
== END 2025-06-14 06:25 | disposition home or self-care (01) ==
LOC: HO.LAB 06:24
PROVIDERS: PCP Internal Medicine; Visit Provider Internal Medicine
DX: I10 Essential (primary) hypertension (principal); E78.00 Pure hypercholesterolemia, unspecified; Z12.5 Encounter for screening for malignant neoplasm of prostate; Z13.1 Encounter for screening for diabetes mellitus
CPT/HCPCS: 36415; 80053; 80061; 82607; 82746; 83036; 84153; 84439; 84443; 85025

== ENCOUNTER 2025-06-18 08:32 | Outpatient (AMB) | payer MEDICARE, SELFPAY ==
[2025-06-18 08:44] VITALS: BP 156/72; PULSE 67; TEMP 36.2; O2SAT 93; BMI 51.4
--- NOTE | 2025-06-18 08:44 | MHC.PC.OV ---
Vital Signs 06/18/25 08:44 06/18/25 09:14 Height 6 ft 1 in Weight 390 lb BMI 51.4 BP 156/72 H 140/60 H Blood Pressure Location Lt brachial Lt brachial Position Sitting Sitting Pulse 67 Pulse Source Pulse Oximeter Temp 97.1 F Temp Source Temporal Artery Scan Pulse Oximetry (%) 93 Oxygen Delivery Method Room Air Intake Visit Reasons: 3 month f/u Allergies lisinopril Adverse Reaction (Intermediate, Verified 06/18/25 08:48) Angioedema Medication List - Last Reconciled 06/18/25 by Delaney Marrero MD ascorbate calcium (vitamin C) 500 mg PO DAILY blood pressure monitor (Blood Pressure Kit) As directed clotrimazole 1% 1 appl topical BID 4 weeks josé manuel.stocking,knee,reg,xlrg As directed 20-30 mm HG fluticasone propionate 50 mcg/actuation (Flonase Allergy Relief) 2 sprays intranasal DAILY hydrochlorothiazide 25 mg PO QAM 90 days losartan 100 mg PO DAILY meloxicam 15 mg PO DAILY metoprolol succinate ER 100 mg PO DAILY multivitamin,as-fdxl-dzixuvsd (Complete Multivitamin tablet) 1 tab PO DAILY pantoprazole (Protonix) 40 mg PO DAILY sodium,potassium,mag sulfates 17.5-3.13-1.6 gram (Suprep Bowel Prep Kit) DILUTE each bottle with 16oz of water; drink first bottle 4pm evening before procedure AND second bottle at 10pm; follow each bottle with at least 32 oz.of water within 1 hour after each bottle tramadol 50 mg PO DAILY Tobacco use date assessed: 06/18/25 Fall risk assessment: No Falls in past year Last assessed Fall Risk: 06/18/25 Dental Screening Dental Screen Date: 06/18/25 Did you have a dental visit in the last 12 months?: No Did you have a dental problem in the last 6 months where you did not have access to dental care?: No Was dental information given to patient?: Patient has dentist [facility] Medical History Obesity Weight gain Snores Lower extremity edema Legionnaires' disease Seborrheic dermatitis COVID-19 virus infection Asthma Allergic rhinitis Lymphedema Obstructive sleep apnea Gastric ulcer, unspecified as acute or chronic, without hemorrhage or perforation GERD (gastroesophageal reflux disease) Hypertension Surgical History H/O esophagogastroduodenoscopy Hx of colonoscopy History of lipoma History of ankle surgery Family History Father No problems noted. Mother No problems noted. Social History Housing: House Alcohol intake: never Patient Tobacco Use Status: Never used Tobacco Tobacco use type: Cigarette e-Cigarette/Vaping Use: Never Used Second Hand Smoke Exposure: No service: No Current occupational status: retired Cognitive needs: Yes (Cane) Hearing needs: No Vision needs: Yes Questionnaire PHQ-9 Over the last 2 weeks, how often have you been bothered by any of the following problems? 1. Little interest or pleasure in doing things: not at all 2. Feeling down, depressed, or hopeless: not at all 3. Trouble falling or staying asleep, or sleeping too much: not at all 4. Feeling tired or having little energy: several days 5. Poor appetite or overeating: several days 6. Feeling bad about yourself - or that you are a failure or have let yourself or your family down: several days 7. Trouble concentrating on things, such as reading the newspaper or watching television: not at all 8. Moving or speaking so slowly that other people could have noticed. Or the opposite - being so fidgety or restless that you have been moving around a lot more than usual: not at all 9. Thoughts that you would be better off or of hurting yourself in some way: not at all Total score: 3 Depression Screening Interpretation: Positive Depression Screening Done: Yes Source: Developed by Drs. Hai Gipson, Maria De La Cruz, Raymundo Alvarado and colleagues, with an educational chencho from [employer]. Thrive Questionnaire Date Thrive assessed: 02/15/25 I am a: Patient What is your living situation today?: I have a steady place to live Within the past 12 months, did the food you bought not last and you didn't have the money to get more?: Never true Within the past 12 months, did you worry whether your food would run out before you got money to buy more?: Never true Do you have trouble paying for medicines?: No Do you have trouble getting transportation to medical appointments?: No Do you have trouble paying your heating and electricity bill?: No Do you have trouble taking care of your child, family member or friend?: No Do you have trouble with day-to-day activities such as bathing, preparing meals, shopping, managing finances, etc.?: No Are you currently unemployed and looking for a job?: No Are you interested in more education?: No Please select the resources that you would like help with: None Currently or been in a relationship where the following occur: No concerns reported THRIVE Score: 0 AUDIT C Alcohol Use Questionnaire (AUDIT-C) 1. How often do you have a drink containing alcohol?: Never 3. How often do you have six or more drinks on one occasion?: Never Total Score: 0 JACKSON-7 AMB Questionnaire JACKSON-7 Date JACKSON - 7 assessed: 02/15/25 Feeling nervous, anxious, or on edge: 0 = Not at all Not being able to stop or control worryin = Not at all Worrying too much about different things: 0 = Not at all Trouble relaxin = Not at all Being so restless that it is hard to sit still: 0 = Not at all Becoming easily annoyed or irritable: 0 = Not at all Feeling afraid as if something awful might happen: 0 = Not at all Total JACKSON-7 score (0-4 normal; 5-9 mild; 10-14 moderate; 15-21 severe): 0 Source: Developed by Drs. Hai Gipson, Maria De La Cruz, Raymundo Alvarado and colleagues, with an educational chencho from [employer]. Physical exam (Primary Care) Vital Signs: Last Vital Signs Temp 97.1 F 06/18/25 08:44 Pulse 67 06/18/25 08:44 BP 140/60 H 06/18/25 09:14 Pulse Ox 93 06/18/25 08:44 Oxygen Delivery Method Room Air 06/18/25 08:44 BMI result Body Mass Index 51.4 Tobacco/Smoking Status: Tobacco use Status Tobacco use date assessed 06/18/25 06/18/25 08:49 Patient Tobacco Use Status Never used Tobacco 06/18/25 08:49 Tobacco use type Cigarette 06/18/25 08:49 e-Cigarette/Vaping Use Never Used 06/18/25 08:49 PHQ-9: PHQ-9 Score PHQ-9: Total score 3 06/18/25 17:27 Depression Screening Interpretation: Positive Thrive Assessment: Date of Thrive Assessment Date Thrive assessed 02/15/25 06/18/25 08:49 Currently or been in a relationship where the following occur: No concerns reported Const General: alert; No acute distress Eyes Conjunctivae: conjunctivae normal Resp Auscultation: clear to auscultation bilaterally Cardio Rate: regular rate Rhythm: regular rhythm GI Inspection: Yes normal to inspection Extrem General: Yes normal to inspection and No edema Office Procedures Flu Questionnaire Does the patient have a severe egg allergy?: No Does the patient have severe life threatening allergies?: No Does the patient have a fever or illness today?: No Has the patient ever had Guillain-[place] Syndrome?: No Has the patient ever had any past reaction to a flu shot?: No Immunizations Fluarix 3617-6330 (PF) 45 mcg (15 mcg x 3)/0.5 mL IM syringe Performing Provider: Delaney Marrero MD [facility] Administered by: Dolores Huitron CMA on 06/18/25 09:37 Dose Route Admin Location Dispensed Lot Number Expiration Date [facility] Merchandising Representative 0.5 mL IM Left Deltoid 0.5 mL [id number] 03/11/26 [id number] [employer] VIS Given Date VIS Provided VIS Publication Date 06/18/25 Single Vaccine 24 Eligibility Eligibility Date Funding Source Not [facility] Eligible 06/18/25 Private Coding Level of Care Code Est Pt Level 4 (01413) Complex EM visit Add On G2211 Diagnoses Essential hypertension I10 Hypertension type: essential hypertension Impaired fasting glucose R73.01 Morbid obesity with BMI of 50.0-59.9, adult E66.01; Z68.43 Gastroesophageal reflux disease without esophagitis K21.9 Esophagitis presence: without esophagitis Tubulovillous adenoma of colon D12.6 Asthma J45.909 Assessment & Plan Assessment & Plan (1) Hypertension: Code(s): I10 - Essential (primary) hypertension Category: Medical Qualifiers: Hypertension type: essential hypertension Qualified Code(s): I10 - Essential (primary) hypertension Plan: Continue with blood pressure medication. Decrease salt intake and exercise presently on losartan 100 mg once a day hydrochlorothiazide 25 mg once a day metoprolol 100 mg once a day (2) Impaired fasting glucose: Code(s): R73.01 - Impaired fasting glucose Category: Medical Plan: Decrease the amount of carbohydrate intake, pasta, bread, rice and potatoes are all sugar and that is aside from all the sweet stuff, remember that fruits are good but they are Sweet also. (3) Morbid obesity with BMI of 50.0-59.9, adult: Code(s): E66.01 - Morbid (severe) obesity due to excess calories; Z68.43 - Body mass index [BMI] 50.0-59.9, adult Category: Medical Plan: Diet and exercise (4) GERD (gastroesophageal reflux disease): Comment: Managed by his PCP Code(s): K21.9 - Gastro-esophageal reflux disease without esophagitis Category: Medical Qualifiers: Esophagitis presence: without esophagitis Qualified Code(s): K21.9 - Gastro-esophageal reflux disease without esophagitis Plan: Avoid the foods that causes that usually spicy foods, tomato products, juices, coffee, soda and foods that your sensitive to. After eating do not lie down, allow 3-4 hours before in lie down. And keep the head of bed above 30 degrees to avoid the acid from going up. (5) Tubulovillous adenoma of colon: Comment: 2020 TVA 1 TA repeat 1 year, also sessile polyp Code(s): D12.6 - Benign neoplasm of colon, unspecified Category: Medical Plan: Patient has a schedule colonoscopy this month (6) Asthma: Comment: 2010 PFT Code(s): J45.909 - Unspecified asthma, uncomplicated Category: Medical Plan History of Present Illness The patient is a 69-year-old male presenting with follow-up on multiple chronic conditions and preventative care measures. The patient has a history of morbid obesity, which has been a long-standing issue contributing to other health problems such as hypertension and obstructive sleep apnea. He is unable to tolerate CPAP therapy for his sleep apnea, which complicates management. Hypertension is managed with a regimen of losartan, hydrochlorothiazide, and metoprolol, with recent blood pressure readings at 140/60 mmHg, indicating borderline control. The patient also has peripheral vascular disease and impaired glucose tolerance, with a hemoglobin A1c of 6.1, indicating prediabetes. He has been advised to manage his glucose levels through diet and exercise. A history of tubular adenoma of the colon necessitates regular colonoscopy screenings, with the next procedure scheduled for June 2025. The patient reports chronic anemia, stable over the past few years, with normal platelet counts and stable renal function. He experiences knee pain, which has worsened over time, limiting his mobility and daily activities. The patient is considering weight loss interventions to alleviate knee pain and improve overall health. Health Maintenance - Colonoscopy scheduled for June 2025 - Discussion of flu and shingles vaccinations - Recommendation for COVID-19 vaccination Social History - Exercise: Limited due to knee pain, considering weight loss interventions - Nutritional intake: Consumes punch diluted with water, advised to reduce sugar intake Review of Systems - Cardiovascular: Reports elevated blood pressure, denies chest pain - Respiratory: Reports obstructive sleep apnea, unable to tolerate CPAP - Endocrine: Reports impaired glucose tolerance, denies diabetes - Musculoskeletal: Reports knee pain, worsening over time Physical Exam - Cardiovascular: Blood pressure measured at 140/60 mmHg Results - Labs: Hemoglobin A1c 6.1, indicating prediabetes - Labs: Mild anemia noted, stable over past few years - Labs: Electrolytes and renal function stable - Labs: LDL cholesterol at 112 mg/dL Plan Patient was informed and verbally consented to the use of an ambient scribe for clinic note documentation during this visit. 1. Morbid Obesity The patient is advised to consider weight loss interventions, such as joining a weight management program, to alleviate knee pain and improve overall health. 2. Hypertension Hypertension is managed with losartan, hydrochlorothiazide, and metoprolol. Blood pressure is monitored regularly, with recent readings at 140/60 mmHg. 3. Obstructive Sleep Apnea The patient is unable to tolerate CPAP therapy, and alternative management strategies are being considered. 4. Peripheral Vascular Disease Peripheral vascular disease is monitored, with emphasis on managing risk factors such as hypertension and glucose levels. 5. Impaired Glucose Tolerance The patient is advised to manage glucose levels through diet and exercise, with a hemoglobin A1c of 6.1 indicating prediabetes. 6. Tubular Adenoma Of The Colon Regular colonoscopy screenings are recommended, with the next procedure scheduled for June 2025. 7. Anemia Anemia is stable and monitored, with no significant changes in recent lab results. 8. Knee Pain The patient is considering weight loss to alleviate knee pain, and further orthopedic evaluation may be considered if symptoms persist. Discussion Notes During the visit, we discussed the importance of managing chronic conditions such as hypertension and impaired glucose tolerance through medication and lifestyle changes. The patient was advised on the benefits of weight loss to alleviate knee pain and improve overall health. We also reviewed the need for regular colonoscopy screenings due to a history of tubular adenoma. Vaccinations, including flu and shingles, were recommended, and the patient was informed about the availability of COVID-19 vaccines at local pharmacies. Follow-up appointments and the importance of medication adherence were emphasized. Patient Instructions - Continue current medications for hypertension and monitor blood pressure regularly. - Manage glucose levels through diet and exercise. - Schedule and attend the colonoscopy in June 2025. - Consider weight loss interventions to alleviate knee pain. - Get vaccinated for flu and shingles, and consider COVID-19 vaccination. Orders: Orders XR Knee Harrison 1or 2V Today M17.0 - Bilateral primary osteoarthritis of knee Influenza 0732-0620 Immunization Today Z23 - Encounter for immunization Medications: Refilled tirzepatide (Mounjaro) for 4 weeks 2.5 mg (0.5 mL) subcut QWEEK 2 mL 3RF E66.01 - Morbid (severe) obesity due to excess calories, Z68.43 - Body mass index [BMI] 50.0-59.9, adult
--- OUTSIDE RECORDS SUMMARY | 2025-06-18 09:08 | XMS_ITS | Encounter Summary ---
Author Organization [employer] [facility] Address [address] [place] [address] Care Team Providers Care Casting Chipper Name Role Phone Unavailable Primary Care Provider Unavailabl e Encounter Details Date Type Department Care Team (Latest Contact Info) Description 11/20/[address] [facility] CONVERSIONS Dental, Provider, DDS Social History Tobacco [...]
--- OUTSIDE RECORDS SUMMARY | 2025-06-18 09:08 | XMS_ITS | Clinical Summary ---
Author Organization [employer] Address [address] [place] [address] Care Team Providers Care Vrt Mechanic Name Role Phone Unavailable Primary Care [...]
--- OUTSIDE RECORDS SUMMARY | 2025-06-18 09:08 | XMS_ITS | Encounter Summary ---
Author Organization [facility] Address [address] [place] [address] Care Team Providers Care Apartment Property Manager Name Role Phone Unavailable Primary Care Provider Unavailabl e Encounter Details Date Type Department Care Team (Latest Contact Info) Description 10/31/2018 Abstract [facility] CONVERSIONS Dental, Provider, DDS Social History [...]
--- OUTSIDE RECORDS SUMMARY | 2025-06-18 09:08 | XMS_ITS | Patient Health Record ---
Author Organization [facility] Address [address] [place] [address] Care Team Providers Care Vice President Network Development Name Role Phone Delaney Marrero Primary Care Provider Eliceo Loving Unavailable [phone] Allergies No Known Allergies Reason For Referral [...] atherosclerosis of arteries of lower limbs (disorder) ([id number] ) Atherosclerosis of siletz tribe artery of both lower extremities, with unspecified presence of clinical manifestation (I70.203) Active confirmed Q7(A), Q8(2B), Q9(1B,2 C) Vital Signs Blood pressure diastolic 60 mm Hg 04/02/2025 Height 6ft in 04/02/2025 Blood pressure systolic 140 mm Hg 04/02/2025 Weight 375 lbs 04/02/2025 BMI 50.85 kg/m2 04/02/2025 Procedures Procedure Date Ordered Date Performed Result Body Sit e 19009-IMHXLRA NAIL, 6 OR MORE 06/26/2024 N/A 41106-PIXZ SKIN LESIONS, OVER 4 06/26/2024 N/A 30946-OQFDHVS NAIL, 6 OR MORE 09/25/2024 N/A 74017-YPLN SKIN LESIONS, OVER 4 09/25/2024 N/A 92487-JWPBXIA NAIL, 6 OR MORE 12/25/2024 N/A 46035-IJCV SKIN LESIONS, OVER 4 12/25/2024 N/A 49816-HJUKLXP NAIL, 6 OR MORE 04/02/2025 N/A 40554-PPHE SKIN LESIONS, OVER 4 04/02/2025 N/A Encounters Encounter Location Date Provider Diagnosis [address] [address] 06/26/2024 Eliceo Del Castillo Atherosclerosis of siletz tribe artery of both lower extremities, with unspecified presence of clinical manifestation I70.203 ; Tinea unguium B35.1 ; Pain in right toe(s) M79.674 and Pain in left toe(s) M79.[address] [address] 09/25/2024 Eliceo Del Castillo Atherosclerosis of [place] tribe artery of both lower extremities, with unspecified presence of clinical manifestation I70.203 ; Tinea unguium B35.1 ; Pain in right toe(s) M79.674 and Pain in left toe(s) M79.[address] [address] 12/25/2024 Eliceodale KerrMagdalene Atherosclerosis of s[place] tribe artery of both lower extremities, with unspecified presence of clinical manifestation I70.203 ; Tinea unguium B35.1 ; Pain in right toe(s) M79.674 and Pain in left toe(s) M79.675 [facility] [place] [address] [place] [address] 04/02/2025 Eliceo Del Castillo Atherosclerosis of s[place] tribe artery of both lower extremities, with unspecified presence of clinical manifestation I70.203 ; Tinea unguium B35.1 ; Pain in right toe(s) M79.674 and Pain in left toe(s) M79.675 Assessments Encounter Date Diagnosis (ICD Code) Assessment Notes Treatment Notes Treatment Clinical Notes Section Notes 06/26/2024 Tinea unguium (ICD-10 - B35.1) 06/26/2024 Atherosclerosis of sile[place] tribe artery of both lower extremities, with unspecified presence of clinical manifestation (ICD-10 - I70.203) Q7(A), Q8(2B), Q9(1B,2C) 09/25/2024 Tinea unguium (ICD-10 - B35.1) 09/25/2024 Atherosclerosis of s[place] tribe artery of both lower extremities, with unspecified presence of clinical manifestation (ICD-10 - I70.203) Q7(A), Q8(2B), Q9(1B,2C) 12/25/2024 Tinea unguium (ICD-10 - B35.1) 12/25/2024 Atherosclerosis of s[place] tribe artery of both lower extremities, with unspecified presence of clinical manifestation (ICD-10 - I70.203) Q7(A), Q8(2B), Q9(1B,2C) 04/02/2025 Tinea unguium (ICD-10 - B35.1) 04/02/2025 Atherosclerosis of s[place] tribe artery of both lower extremities, with unspecified [...] Treatment Pending Test Test Name Order Date 68168-DSTMOPE NAIL, 6 OR MORE 09/16/2023 73194-FSPJJVK NAIL, 6 OR MORE 12/27/2023 27324-JMSKVTF NAIL, 6 OR MORE 03/27/2024 29577-ECCLYET NAIL, 6 OR MORE 06/26/2024 07949-ZHKLYEA NAIL, 6 OR MORE 09/25/2024 13928-IUUUYPH NAIL, 6 OR MORE 12/25/2024 80265-DPQBAQO NAIL, 6 OR MORE 04/02/2025 85532-Kkyq Destruction, 1-12/27/2023 01245-Jtpy Destruction, 1-09/16/2023 78790 I&D ABSCESS- SIMPLE,SINGLE 024 89917-KBUT SKIN LESIONS, OVER 4 04/02/20 25 95902-MANE SKIN LESIONS, OVER 4 12/26/19 25 44451-CGJR SKIN LESIONS, OVER 4 09/25/19 25 05141-RCGH SKIN LESIONS, OVER 4 09/16/19 24 88651-OPRZ SKIN LESIONS, OVER 4 12/27/19 24 66268-XMAI SKIN LESIONS, OVER 4 06/26/20 24 61317-BNZD SKIN LESIONS, OVER 4 03/27/20 24 Next Appt Details Provider Name:Eliceo Del Castillo , 07/02/2025 09:30:00 AM, [address], [place], [address], Insurance Providers Payer Name Payer Address Payer Phone Subscriber Number Group Number Insured Name Patient Relationship to Insured Coverage Start Date Coverage End Date Medicare National [employer] [address] [facility] [place] [address] [id number] Yfn Bynum Self - patient is the insured [facility] [address] [place] [address] [id number] Yfn Bynum Self - patient is the insured Medical (General) History Medical History History ICD Code High blood pressure Back,Hip,and Knee pain covid-19 Surgical History Surgery Date(Month/Year) Triple Arthrodesis, Left 1980s
[2025-06-18 09:14] VITALS: BP 140/60
== END 2025-06-18 09:40 | disposition home or self-care (01) ==
LOC: HO.HMCH 08:33
PROVIDERS: PCP Internal Medicine; Visit Provider Internal Medicine
DX: I10 Essential (primary) hypertension (principal); R73.01 Impaired fasting glucose; E66.01 Morbid (severe) obesity due to excess calories; Z68.43 Body mass index [BMI] 50.0-59.9, adult; K21.9 Gastro-esophageal reflux disease without esophagitis; D12.6 Benign neoplasm of colon, unspecified; J45.909 Unspecified asthma, uncomplicated; Z23 Encounter for immunization

== ENCOUNTER → 2025-06-18 08:32 | Outpatient (BNVA) | payer MEDICARE, SELFPAY | PROVIDERS: PCP Internal Medicine; Visit Provider Internal Medicine | DX: I10 Essential (primary) hypertension (principal); R73.01 Impaired fasting glucose; E66.01 Morbid (severe) obesity due to excess calories; K21.9 Gastro-esophageal reflux disease without esophagitis; D12.6 Benign neoplasm of colon, unspecified; J45.909 Unspecified asthma, uncomplicated; G47.33 Obstructive sleep apnea (adult) (pediatric); M17.0 Bilateral primary osteoarthritis of knee; I73.9 Peripheral vascular disease, unspecified; Z23 Encounter for immunization; Z68.43 Body mass index [BMI] 50.0-59.9, adult | CPT/HCPCS: 90471; 90656; 96127; 99212 ==

== ENCOUNTER 2025-07-19 10:01 | Outpatient (AMB) | payer MEDICARE, SELFPAY ==
[2025-07-19 10:05] VITALS: BP 148/74; PULSE 65; TEMP 36.1; O2SAT 92; BMI 50.4
--- NOTE | 2025-07-19 10:05 | AM.OFFVISMDC ---
Intake Vital Signs 07/19/25 10:05 07/19/25 10:42 Height 6 ft 1 in Weight 382 lb 6 oz BMI 50.4 BP 148/74 H 134/66 Blood Pressure Location Lt brachial Lt brachial Position Sitting Sitting Pulse 65 Pulse Source Pulse Oximeter Temp 97.0 F Temp Source Temporal Artery Scan Pulse Oximetry (%) 92 Oxygen Delivery Method Room Air Intake Visit Reasons: [facility] G0439 Allergies lisinopril Adverse Reaction (Intermediate, Verified 07/19/25 10:10) Angioedema Medication List - Last Reconciled 07/19/25 by Delaney Marrero MD ascorbate calcium (vitamin C) 500 mg PO DAILY blood pressure monitor (Blood Pressure Kit) As directed clotrimazole 1% 1 appl topical BID 4 weeks josé manuel.stocking,knee,reg,xlrg As directed 20-30 mm HG fluticasone propionate 50 mcg/actuation (Flonase Allergy Relief) 2 sprays intranasal DAILY hydrochlorothiazide 25 mg PO QAM 90 days losartan 100 mg PO DAILY meloxicam 15 mg PO DAILY metoprolol succinate ER 100 mg PO DAILY multivitamin,cn-yofw-ncmdeuly (Complete Multivitamin tablet) 1 tab PO DAILY pantoprazole (Protonix) 40 mg PO DAILY sodium,potassium,mag sulfates 17.5-3.13-1.6 gram (Suprep Bowel Prep Kit) DILUTE each bottle with 16oz of water; drink first bottle 4pm evening before procedure AND second bottle at 10pm; follow each bottle with at least 32 oz.of water within 1 hour after each bottle tirzepatide (Mounjaro) 2.5 mg (0.5 mL) subcut QWEEK tramadol 50 mg PO DAILY HPI V G0439 HPI [address] Valenzuela, Ophthalmology, Dr. Oshea, [facility] Podiatry cecilio, 2 weeks ago- missed a step, [facility] Medical History Obesity Weight gain Snores Lower extremity edema Legionnaires' disease Seborrheic dermatitis COVID-19 virus infection Asthma Allergic rhinitis Lymphedema Obstructive sleep apnea Gastric ulcer, unspecified as acute or chronic, without hemorrhage or perforation GERD (gastroesophageal reflux disease) Hypertension Surgical History H/O esophagogastroduodenoscopy Hx of colonoscopy History of lipoma History of ankle surgery Family History Father No problems noted. Mother No problems noted. Social History Housing: House Alcohol intake: never Patient Tobacco Use Status: Never used Tobacco Tobacco use type: Cigarette e-Cigarette/Vaping Use: Never Used Second Hand Smoke Exposure: No service: No Current occupational status: retired Cognitive needs: Yes (Cane) Hearing needs: No Vision needs: Yes Questionnaire Medicare Wellness Checkup [age] What gender do you identify with?: male During the past 4 weeks, how much have you been bothered by emotional problems such as feeling anxious, depressed, irritable, sad or downhearted, and blue?: not at all During the past 4 weeks, has your physical & emotional health limited your social activities with family, friends, neighbors, or groups?: not at all During the past 4 weeks, how much bodily pain have you generally had?: moderate pain During the past 4 weeks, was someone available to help you if you needed & wanted help?: yes, as much as I wanted During the past 4 weeks, what was the hardest physical activity you could do for at least 2 minutes?: light Can you get to places out of walking distance without help? (For eg., can you travel alone on buses, taxis or drive your car?): Yes Can you go shopping for groceries or clothes without someone's help?: Yes Can you prepare your own meals?: Yes Can you do your housework without help?: Yes Because of any health problems, do you need the help of another person with your personal care needs such as eating, bathing, dressing or getting around the house?: No Can you handle your own money without help?: Yes During the past 4 weeks, how would you rate your health in general?: good During the past 4 weeks how have things been going for you?: pretty well Are you having difficulties driving your car?: no Do you always fasten your seat belt when you are in a car?: yes, usually During past 4 weeks, have you been bothered by the following: never: Sexual problems?, Trouble eating well?, Teeth or denture problems?, Problems using the telephone? and Tiredness or fatigue? and sometimes: Falling or dizzy when standing up Have you fallen 2 or more times in the past year?: No Are you afraid of falling?: Yes Are you a smoker?: no During the past 4 weeks, how many drinks of wine, beer, or other alcoholic beverages did you have?: no alcohol at all Do you exercise for about 20 minutes 3 or more times a week?: no, I usually do not exercise this much Have you been given information to help with the following?: yes: Hazards in your house that might hurt you? and yes: Keeping track of your medications? How often do you have trouble taking medicines the way you have been told to take them?: I always take medicine as prescribed How confident are you that you can control & manage most of your health problems?: very confident What is your race?: White PHQ-9 Over the last 2 weeks, how often have you been bothered by any of the following problems? 1. Little interest or pleasure in doing things: not at all 2. Feeling down, depressed, or hopeless: not at all 3. Trouble falling or staying asleep, or sleeping too much: several days 4. Feeling tired or having little energy: several days 5. Poor appetite or overeating: several days 6. Feeling bad about yourself - or that you are a failure or have let yourself or your family down: not at all 7. Trouble concentrating on things, such as reading the newspaper or watching television: not at all 8. Moving or speaking so slowly that other people could have noticed. Or the opposite - being so fidgety or restless that you have been moving around a lot more than usual: not at all 9. Thoughts that you would be better off or of hurting yourself in some way: not at all Total score: 3 Depression Screening Interpretation: Positive Depression Screening Done: Yes 79258 - PHQ-9 Billing: Yes Source: Developed by Drs. Hai Gipson, Maria De La Cruz, Raymundo Alvarado and colleagues, with an educational chencho from [employer]. Review of Systems Const Denies poor appetite and Denies weakness Eyes Denies no additional complaints ENT Reports Normal hearing present, Denies dizziness, Denies nasal congestion, Denies tinnitus and Denies sore throat Card Denies chest pain, Denies syncope, Denies rapid heart rate and Denies dyspnea Resp Denies cough and Denies dyspnea GI Denies change in stool character, Reports constipation, Denies diarrhea, Denies nausea and Denies vomiting Denies dysuria and Denies urinary frequency Neuro Reports Normal hearing present, Denies confusion, Denies dizziness, Denies syncope and Denies weakness Psych Denies confusion Physical Exam Vital Signs: Last Vital Signs Temp 97.0 F 07/19/25 10:05 Pulse 65 07/19/25 10:05 BP 134/66 07/19/25 10:42 Pulse Ox 92 07/19/25 10:05 Oxygen Delivery Method Room Air 07/19/25 10:05 BMI result Body Mass Index 50.4 Const General: No confusion Orientation/consciousness: No confusion HEENT Head: Yes normocephalic Ears: external ears normal and TM's normal bilaterally Face and sinus: Yes normal facial exam Mouth: moist mucous membranes Throat: Yes tonsils normal Eyes Conjunctivae: conjunctivae normal Pupils: Equal, round and reactive pupils present and Pupil accommodation reflex normal Direct Ophthalmoscopy: normal light reflex Neck Neck: No lymphadenopathy Thyroid: Thyroid normal Chest Chest palpation & inspection: normal inspection of the chest Resp Effort & Inspection: normal respiratory effort and no audible wheezes Auscultation: clear to auscultation bilaterally, no crackles, no wheezes and lung sounds not diminished Cardio Rate: regular rate Rhythm: regular rhythm Peripheral pulses: radial pulses present and dorsalis pedis present GI Palpation (GI): no masses Auscultation: normal bowel sounds and normoactive bowel sounds Rectal Exam - Male: Yes deferred Skin General skin exam: no rashes or lesions noted Rashes: no rashes Neuro General: No confusion Cranial nerves: Yes Equal, round and reactive pupils present and Yes Normal hearing present Cognition (Neuro): normal cognition Gait exam (Neuro): Normal gait present Motor exam (neuro): 5/5 motor strength present throughout Deep tendon reflexes (DTR's): Right brachioradialis reflex intensity grade: 2+, Left brachioradialis reflex intensity grade: 2+, Right patellar reflex intensity grade: 2+ and Left patellar reflex intensity grade: 2+ Extrem General: No edema Immunizations pneumoc 20-mickey conj-dip cr(PF) 0.5 mL IM syringe Performing Provider: Delaney Marrero MD Performing Location: [facility] Administered by: Dolores Huitron CMA on 07/19/25 11:01 Dose Route Admin Location Dispensed Lot Number Expiration Date NDC Respiratory Care Technician 0.5 mL IM Left Deltoid 0.5 mL [id number] 05/13/26 0680-3544-99 [employer] Total Dispensed Waste 0.5 mL 0 % VIS Given Date VIS Provided VIS Publication Date 07/19/25 Single Vaccine 25 Eligibility Eligibility Date Funding Source Not [facility] Eligible 07/19/25 Private Assessment & Plan Assessment & Plan (1) Medicare annual wellness visit, subsequent: Code(s): Z00.00 - Encounter for general adult medical examination without abnormal findings Plan: Patient is advised to eat healthy, keep well hydrated, keep active and have adequate sleep. (2) Hypertension: Code(s): I10 - Essential (primary) hypertension Qualifiers: Hypertension type: essential hypertension Qualified Code(s): I10 - Essential (primary) hypertension Plan: Continue with blood pressure medication. Decrease salt intake and exercise patient is taking losartan 100 mg once a day hydrochlorothiazide 25 mg once a day metoprolol 100 mg once a day (3) Impaired fasting glucose: Code(s): R73.01 - Impaired fasting glucose Plan: Decrease the amount of carbohydrate intake, pasta, bread, rice and potatoes are all sugar and that is aside from all the sweet stuff, remember that fruits are good but they are Sweet also. (4) Morbid obesity with BMI of 50.0-59.9, adult: Code(s): E66.01 - Morbid (severe) obesity due to excess calories; Z68.43 - Body mass index [BMI] 50.0-59.9, adult Plan: Diet and exercise. Patient has been placed on Mounjaro (5) GERD (gastroesophageal reflux disease): Comment: Managed by his PCP Code(s): K21.9 - Gastro-esophageal reflux disease without esophagitis Qualifiers: Esophagitis presence: without esophagitis Qualified Code(s): K21.9 - Gastro-esophageal reflux disease without esophagitis Plan: Avoid the foods that causes that usually spicy foods, tomato products, juices, coffee, soda and foods that your sensitive to. After eating do not lie down, allow 3-4 hours before in lie down. And keep the head of bed above 30 degrees to avoid the acid from going up. (6) Tubulovillous adenoma of colon: Comment: 2020 TVA 1 TA repeat 1 year, also sessile polyp Code(s): D12.6 - Benign neoplasm of colon, unspecified Plan: Discussed about colonoscopy and reminded. (7) Asthma: Comment: 2010 PFT Code(s): J45.909 - Unspecified asthma, uncomplicated Plan: Stable (8) Obstructive sleep apnea: Comment: does not use CPAP-New sleep study done on 11/26/21. Severe degree of sleep apnea. Total AHI 44/hr and oxygen liz was 67% Code(s): G47.33 - Obstructive sleep apnea (adult) (pediatric) Plan: Discussed about the importance of treating sleep apnea Plan History of Present Illness The patient is a 69-year-old male presenting for an annual well visit. He reports an 8-pound weight loss since June. About a week and a half ago, he had a mechanical fall when he missed a step, hitting his bad knee and bruising his buttock; he denies any preceding chest pain or syncope. His medical history is significant for hypertension, GERD, obstructive sleep apnea, peripheral vascular disease, impaired glucose tolerance, and a history of tubular adenoma of the colon. For his IRASEMA, he does not use a CPAP machine. His last colonoscopy was in February 2021, and he was advised to have a repeat procedure, which he postponed due to travel but is awaiting rescheduling. He also has mild chronic anemia, which has been stable for 2-3 years. His medications include losartan, hydrochlorothiazide, metoprolol, pantoprazole, meloxicam, tramadol, vitamin C, multivitamins, and Flonase nasal spray. A prescription for Mounjaro was sent but never filled, likely due to an insurance denial. He has a known allergy to lisinopril. He has never smoked and quit drinking alcohol 35 years ago. 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 He also sees an eye doctor, a dentist, and a shredded filler cigar maker machine for his care. Health Maintenance - Colon Cancer Screening: Patient has a history of tubular adenoma and his last colonoscopy was in February 2021. - A repeat colonoscopy was advised and has been postponed by the patient, who is awaiting a callback to reschedule. - Vision Screening: Patient sees an eye doctor annually and reports no new vision problems. - Dental Care: The patient sees a dentist and plans to go after his new insurance starts. - Podiatry Care: The patient sees a shredded filler cigar maker machine. - Immunizations: Patient received his flu shot last month. - He is due for one more pneumonia shot, which was administered during the visit. - The shingles vaccine series and the COVID-19 vaccine were discussed. - Lab Results (June 14): Recent labs showed a fasting glucose of 108 mg/dL, HbA1c of 6.1%, LDL of 112 mg/dL, and elevated BUN of 31, suggesting dehydration. - He has a stable mild anemia with hemoglobin of 13.7 g/dL. - PSA, B12, folic acid, electrolytes, renal function, and liver function were all within normal limits. - Weight Management: Patient has lost 8 pounds since June through his own efforts. - A prescription for Mounjaro was previously sent for weight management but was not filled. 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 - Substance Use: He reports that he has never smoked. - He quit drinking alcohol 35 years ago. - Living Situation: He lives in a home with stairs and does not have pets. - Nutritional Intake: The patient is trying to cut back on his food intake, particularly at night, and is drinking more water. - He finds it difficult to drink water during the day due to his job. Review of Systems - Constitutional: Reports unintentional weight loss. - Eyes: Denies any problems with his vision. - Ears: Reports some hearing loss but denies it is a significant issue. - Throat: Denies problems with swallowing. - Cardiovascular: Denies chest pain or passing out. - Respiratory: Denies waking up short of breath. - Gastrointestinal: Denies nausea, vomiting, or problems with his bowel movements. - Reports he is not having heartburn with his medication. - Genitourinary: Reports nocturia two to three times per night. - Musculoskeletal: Reports pain in his left knee, which is exacerbated after a recent fall. - Neurological: Denies dizziness. 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 Clear to auscultation bilaterally Cardiovascular: Regular rate and rhythm. Normal S1 and S2 GI: Normal to inspection. Soft to palpation and nontender Skin: No rashes or lesions noted Neuro: Patient oriented x3 Extremities: Normal to inspection, patient reports bruising on the knee and buttocks from a recent fall, knee to be x-rayed due to pain from the fall. Results - Labs (June 14): - Mild chronic anemia with hemoglobin 13.7 g/dL. - Platelet count and electrolytes were normal. - Creatinine was 1.01 mg/dL, and BUN was 31 mg/dL, indicating dehydration. - Fasting blood sugar was 108 mg/dL. - Hemoglobin A1c was 6.1%. - Liver function tests were normal. - LDL cholesterol was 112 mg/dL. - PSA, B12, folic acid, and thyroid function were all within normal limits. Plan Patient was informed and verbally consented to the use of an ambient scribe for clinic note documentation during this visit. 1. Annual Wellness Visit/Health Maintenance Discussed immunizations; patient received his flu shot last month and was given a pneumonia vaccine today. The shingles vaccine series was recommended, and the patient plans to get it with his . The patient was encouraged to continue with regular eye, dental, and podiatry care. Encouraged adequate hydration. 2. Hypertension The patient's blood pressure is 134/66 mmHg in the office. Continue current antihypertensive regimen of losartan 100 mg, hydrochlorothiazide 25 mg, and metoprolol 100 mg daily. 3. Impaired Glucose Tolerance (Prediabetes) Recent labs showed a fasting blood glucose of 108 mg/dL and HbA1c of 6.1%, which is a slight increase. Management will continue to focus on diet and exercise for weight loss. A prescription for Mounjaro was resent to the pharmacy. 4. History Of Tubular Adenoma Of Colon The patient was reminded about the need for a repeat colonoscopy, which he has postponed. He is awaiting a callback from the clothing sales assistant's office to reschedule the procedure. 5. Obstructive Sleep Apnea The importance of treating sleep apnea was discussed. The patient remains non-adherent with CPAP therapy. The importance of weight loss for improving sleep apnea was emphasized. 6. Recent Fall And Knee Pain The patient sustained a mechanical fall approximately a week and a half ago, injuring his knee. He was reminded that an order for a knee X-ray is available for him to complete as needed for his persistent pain. Discussion Notes I reviewed the patient's recent lab results from June 14. I explained that his mild anemia has been stable for years and we will continue to monitor it. I noted his elevated BUN indicates he is dehydrated and needs to increase his fluid intake. I also highlighted the slight increase in his blood sugar and HbA1c, reinforcing that he is prediabetic but not yet diabetic. I praised him for his 8-pound weight loss and encouraged him to continue his efforts. I informed him that I re-sent the prescription for Mounjaro, explaining the prior authorization process with his insurance. I stressed the importance of treating his obstructive sleep apnea and that weight loss is a evans component of management. I strongly reiterated the need to follow up on his colonoscopy, which he has postponed. We discussed his immunizations; he has had the flu shot, I administered a pneumonia vaccine today, and recommended he get the shingles vaccine series. I also reminded him that the order for his knee X-ray is active and he can get it done anytime for his persistent pain following his fall. Patient Instructions - Please schedule and complete your colonoscopy as soon as possible. - You can go for your knee X-ray at any time for the pain you are having from your fall. - Continue your efforts with diet and exercise to help with weight loss and blood sugar control. - Drink more water to stay hydrated. - We have re-sent the prescription for Mounjaro to your pharmacy. - You received a pneumonia vaccine today. Please plan to get the two-part shingles vaccine at your pharmacy. - Continue taking your current medications as prescribed. Let us know if you need refills. - It is very important to treat your sleep apnea. Weight loss can help with this, but you should also try to use your CPAP machine. Orders: Orders Pneumococcal 20 Immunization Today Z23 - Encounter for immunization Medications: Refilled tirzepatide (Mounjaro) for 4 weeks 2.5 mg (0.5 mL) subcut QWEEK 2 mL 3RF E66.01 - Morbid (severe) obesity due to excess calories, Z68.43 - Body mass index [BMI] 50.0-59.9, adult tirzepatide (Mounjaro) for 4 weeks 2.5 mg (0.5 mL) subcut QWEEK 2 mL 3RF E66.01 - Morbid (severe) obesity due to excess calories, Z68.43 - Body mass index [BMI] 50.0-59.9, adult Quality Reporting (2020) Depression/Bipolar (159/160/161/177) PHQ-9: Total score: 3 Coding Level of Care Code Medicare Subsequent (G0439) Diagnoses Medicare annual wellness visit, subsequent Z00.00 Essential hypertension I10 Hypertension type: essential hypertension Impaired fasting glucose R73.01 Morbid obesity with BMI of 50.0-59.9, adult E66.01; Z68.43 Gastroesophageal reflux disease without esophagitis K21.9 Esophagitis presence: without esophagitis Tubulovillous adenoma of colon D12.6 Asthma J45.909 Obstructive sleep apnea G47.33 Additional Codes PHQ-9 - 05753 - PHQ-9 Billing: Yes ([id number])
[2025-07-19 10:42] VITALS: BP 134/66
--- OUTSIDE RECORDS SUMMARY | 2025-07-19 11:47 | XMS_ITS | Encounter Summary ---
Author Organization [facility] Address [address] [place] [address] Care Team Providers Care Cnc Lathe Machine Operator Name Role Phone Unavailable Primary Care Provider Unavailabl e Encounter Details Date Type Department Care Team (Latest Contact Info) Description 11/20/2019 Abstract [facility] CONVERSIONS Dental, Provider, DDS Social [...]
--- OUTSIDE RECORDS SUMMARY | 2025-07-19 11:47 | XMS_ITS | Encounter Summary ---
Author Organization [employer] [facility] Address [address] [place] [address] Care Team Providers Care Analog Ic Design Engineer Name Role Phone Unavailable Primary Care Provider Unavailabl e Encounter Details Date Type Department Care Team (Latest Contact Info) Description 10/31/2018 Abstract [facility] CONVERSIONS Dental, Provider, DDS Social History [...]
--- OUTSIDE RECORDS SUMMARY | 2025-07-19 11:48 | XMS_ITS | Clinical Summary ---
Author Organization [employer] Address [address] [place] [address] Care Team Providers Care Business Account Manager Name Role Phone Unavailable Primary Care [...]
--- OUTSIDE RECORDS SUMMARY | 2025-07-19 11:48 | XMS_ITS | Patient Health Record ---
Author Organization [facility] Address [address] [facility] [place] [address] Care Team Providers Care Teachers Aide Name Role Phone Delaney Marrero Primary Care Provider Eliceo Loving Unavailable [phone] Allergies No Known Allergies Reason For Referral No Information Medications Medication SIG (Take, Route, Frequency, Duration) Notes Start Date End Date Status Lisinopril 40 MG 1 tablet Orally Once a day Not-Taking Fluticasone Propionate 50 MCG/ACT Nasal; Duration: 60 Days Active Metoprolol Succinate ER 100 MG 1 tablet Orally Once a day Active Ammonium Lactate 12 % 1 application Externally Twice a day; Duration: 30 days Active traMADol HCl 100 MG 1 tablet as needed Orally Once a day Active Pantoprazole Sodium 40 MG 1 tablet Orall y Once a day Active Meloxicam 15 MG 1 tablet Orally Once a day Active hydroCHLOROthiazide 25 MG 1 tablet in th e morning Orally Once a day Active Immunizations Vaccine Route Administration Date Status Comme nts Influenza Unknown 06/12/2024 Administered Influenza Unknown 06/25/2025 Administered Social History Tobacco Use: Social History [...] atherosclerosis of arteries of lower limbs (disorder) ([id number] ) Atherosclerosis of [place] artery of both lower extremities, with unspecified presence of clinical manifestation (I70.203) Active confirmed Q7(A), Q8(2B), Q9(1B,2 C) Vital Signs Blood pressure diastolic 56 mm Hg 07/02/2025 Height 6ft in 07/02/2025 Blood pressure systolic 140 mm Hg 07/02/2025 Weight 375 lbs 07/02/2025 BMI 50.85 kg/m2 07/02/2025 Procedures Procedure Date Ordered Date Performed Result Body Sit e 60167-ZCMUBOQ NAIL, 6 OR MORE 09/25/2024 N/A 32163-SZIX SKIN LESIONS, OVER 4 09/25/2024 N/A 54183-YBXBEXY NAIL, 6 OR MORE 12/25/2024 N/A 59817-YDRZ SKIN LESIONS, OVER 4 12/25/2024 N/A 34716-WGKVIAQ NAIL, 6 OR MORE 04/02/2025 N/A 03530-WRCV SKIN LESIONS, OVER 4 04/02/2025 N/A 13404-NTPNPFO NAIL, 6 OR MORE 07/02/2025 N/A 35088-BMYY SKIN LESIONS, OVER 4 07/02/2025 N/A Encounters Encounter Location Date Provider Diagnosis [address] [address] 09/25/2024 Eliceo Del Castillo Atherosclerosis of [place] artery of both lower extremities, with unspecified presence of clinical manifestation I70.203 ; Tinea unguium B35.1 ; Pain in right toe(s) M79.674 and Pain in left toe(s) M79.[address] [address] 12/25/2024 Eliceo Magdalene Atherosclerosis of [place] artery of both lower extremities, with unspecified presence of clinical manifestation I70.203 ; Tinea unguium B35.1 ; Pain in right toe(s) M79.674 and Pain in left toe(s) M79.[address] [address] 04/02/2025 Eliceo Magdalene Atherosclerosis of [place] artery of both lower extremities, with unspecified presence of clinical manifestation I70.203 ; Tinea unguium B35.1 ; Pain in right toe(s) M79.674 and Pain in left toe(s) M79.675 [facility] [address] [place] [address] 07/02/2025 Eliceo Del Castillo Atherosclerosis of [place] artery of both lower extremities, with unspecified presence of clinical manifestation I70.203 ; Tinea unguium B35.1 ; Pain in right toe(s) M79.674 and Pain in left toe(s) M79.675 Assessments Encounter Date Diagnosis (ICD Code) Assessment Notes Treatment Notes Treatment Clinical Notes Section Notes 09/25/2024 Tinea unguium (ICD-10 - B35.1) 09/25/2024 Atherosclerosis of [place] artery of both lower extremities, with unspecified presence of clinical manifestation (ICD-10 - I70.203) Q7(A), Q8(2B), Q9(1B,2C) 12/25/2024 Tinea unguium (ICD-10 - B35.1) 12/25/2024 Atherosclerosis of [place] artery of both lower extremities, with unspecified presence of clinical manifestation (ICD-10 - I70.203) Q7(A), Q8(2B), Q9(1B,2C) 04/02/2025 Tinea unguium (ICD-10 - B35.1) 04/02/2025 Atherosclerosis of [place] artery of both lower extremities, with unspecified presence of clinical manifestation (ICD-10 - I70.203) Q7(A), Q8(2B), Q9(1B,2C) 07/02/2025 Tinea unguium (ICD-10 - B35.1) 07/02/2025 Atherosclerosis of [place] artery of both lower extremities, with unspecified presence of clinical manifestation (ICD-10 - I70.203) Q7(A), Q8(2B), Q9(1B,2C) 07/02/2025 Pain in right toe(s) (ICD-10 - M79.674) 12/25/2024 Pain in right toe(s) (ICD-10 - M79.674) 04/02/2025 Pain in right toe(s) (ICD-10 - M79.674) 09/25/2024 Pain in right toe(s) (ICD-10 - M79.674) 09/25/2024 Pain in left toe(s) (ICD-10 - M79.675) 12/25/2024 Pain in left toe(s) (ICD-10 - M79.675) 04/02/2025 Pain in left toe(s) (ICD-10 - M79.675) 07/02/2025 Pain in left toe(s) (ICD-10 - M79.675) Plan Of Treatment Pending Test Test Name Order Date 98672-XOAVSUK NAIL, 6 OR MORE 09/16/2023 56858-FSDXNEU NAIL, 6 OR MORE 12/27/2023 62860-YSWRYVJ NAIL, 6 OR MORE 03/27/2024 18217-UPWZQDH NAIL, 6 OR MORE 06/26/2024 54493-WKLXYOI NAIL, 6 OR MORE 09/25/2024 43552-KVICLUT NAIL, 6 OR MORE 12/25/2024 96246-WDXRNQX NAIL, 6 OR MORE 04/02/2025 03110-BVYSLRC NAIL, 6 OR MORE 07/02/2025 82964-Gthj Destruction, 1-12/27/2023 60081-Mjcn Destruction, 1-09/16/2023 65180 I&D ABSCESS- SIMPLE,SINGLE 024 28573-LEVY SKIN LESIONS, OVER 4 09/16/19 24 45670-JGDM SKIN LESIONS, OVER 4 12/27/19 24 44157-VXDM SKIN LESIONS, OVER 4 06/26/20 24 91744-FAFU SKIN LESIONS, OVER 4 03/27/20 24 07483-JIEU SKIN LESIONS, OVER 4 07/02/20 25 85748-SJPW SKIN LESIONS, OVER 4 04/02/20 25 51958-EWZR SKIN LESIONS, OVER 4 12/26/19 25 72828-CZTZ SKIN LESIONS, OVER 4 09/25/19 25 Next Appt Details Provider Name:Eliceo Del Castillo , 10/29/2025 08:45:00 AM, [address] [place] [address], [phone], Insurance Providers Payer Name Payer Address Payer Phone Subscriber Number Group Number Insured Name Patient Relationship to Insured Coverage Start Date Coverage End Date Medicare National [employer] [address] [place] [address] [id number] Yfn Bynum Self - patient is the insured [employer] [address] [place] [address] [id number] Yfn Bynum Self - patient is the insured Medical (General) History Medical History History ICD Code High blood pressure Back,Hip,and Knee pain covid-19 Surgical History Surgery Date(Month/Year) Triple Arthrodesis, Left 1980s
== END 2025-07-19 11:04 | disposition home or self-care (01) ==
LOC: HO.HMCH 10:01
PROVIDERS: PCP Internal Medicine; Visit Provider Internal Medicine
DX: Z00.00 Encounter for general adult medical examination without abnormal findings (principal); E66.01 Morbid (severe) obesity due to excess calories; Z68.43 Body mass index [BMI] 50.0-59.9, adult; I10 Essential (primary) hypertension; R73.01 Impaired fasting glucose; K21.9 Gastro-esophageal reflux disease without esophagitis; D12.6 Benign neoplasm of colon, unspecified; J45.909 Unspecified asthma, uncomplicated; G47.33 Obstructive sleep apnea (adult) (pediatric); Z23 Encounter for immunization

== ENCOUNTER → 2025-07-19 10:01 | Outpatient (BNVA) | payer MEDICARE, SELFPAY | PROVIDERS: PCP Internal Medicine; Visit Provider Internal Medicine | DX: Z13.31 Encounter for screening for depression (principal); Z23 Encounter for immunization | CPT/HCPCS: 90471; 90677; 96127 ==